=== PATIENT | female | born 1960 | race Caucasian/White ===

== ENCOUNTER 2020-03-12 13:46 | Outpatient (REF) | payer OTHER, SELFPAY ==
--- NOTE | ~2020-03-12 | MM_ITS ---
EXAMINATION: BONE DENSITOMETRY CLINICAL INDICATION: Osteoporosis. COMPARISON: Previous BD dated 05/07/2013 and baseline BD dated 05/29/2008. TECHNIQUE: Using a [employer] DXA System (software version: 13.1) manufactured by [employer], dual-energy x-ray absorptiometry was performed of the lumbar spine and left hip. The images are of good technical quality. Summary results are attached. FINDINGS: AP SPINE L1-L4: Current: BMD 1.201 g/cm2, Z-score 1.6, T-score 0.2, normal, 1.1% increase from previous, 6.6% decrease from baseline (<5% change is not significant). Prior: BMD 1.188 g/cm2. Baseline: BMD 1.286 g/cm2. LEFT FEMUR, NECK: Current: BMD 1.044 g/cm2, Z-score 1.4, T-score 0.0, normal. Prior: BMD 1.115 g/cm2. Baseline: BMD 1.181 g/cm2. LEFT FEMUR, TOTAL: Current: BMD 1.122 g/cm2, Z-score 2.0, T-score 0.9, normal, 1.2% increase from previous, 5.5% decrease from baseline (<5% change is not significant). Prior: BMD 1.109 g/cm2. Baseline: BMD 1.187 g/cm2. IDENTIFIED RISK FACTORS: Early menopause, secondary osteoporosis, hysterectomy. HISTORY OF FRACTURE: None listed. MEDICATIONS: None listed. MM/XR DEXA axial skeleton IMPRESSION: 1. DIAGNOSIS: Normal bone density based on the lowest T-score value of 0.0 in the femoral neck applying World Health Organization criteria. 2. 10-YEAR FRACTURE RISK PREDICTION, FRAX: Major osteoporotic fracture (clinical spine, forearm, hip or shoulder) 6.2%. Hip fracture 0.1%. 3. Treatment Recommendations: NOF guidelines recommend consideration for treatment in postmenopausal women and men age 50 and older presenting with the following: -A hip or vertebral (clinical or morphometric) fracture. -T-score less than or equal to -2.5 at the femoral neck or spine after appropriate evaluation to exclude secondary causes. -Low bone mass at the hip or spine and a 10-year fracture probability by FRAX of greater than or equal to 3% for hip fracture or greater than or equal to 20% for major osteoporotic fracture based on the [place] adapted WHO algorithm. 4. Other Recommendations: All treatment decisions require clinical judgment and consideration of individual patient factors, including patient preferences, comorbidities, previous drug use, risk factors not captured in the FRAX model (e.g. frailty, falls, vitamin D deficiency, increased bone turnover, interval significant decline in bone density) and possible under or overestimation of fracture risk by FRAX. FUTURE SCAN RECOMMENDATION: People with diagnosed cases of osteoporosis or at high risk for fracture should have regular bone mineral density tests. For patients eligible for Medicare, routine testing is allowed once every 2 years. The testing frequency can be increased to one year for patients who have rapidly progressing disease, those who are receiving or discontinuing medical therapy to restore bone mass, or have additional risk factors.
--- NOTE | ~2020-03-12 | MM_ITS ---
EXAMINATION: MM SCREENING DIGITAL BREAST TOMOSYNTHESIS, BILATERAL CLINICAL INFORMATION: Screening. Asymptomatic. The lifetime risk of breast cancer based on the Tyrer-Cuzick Model is 6.4%. COMPARISON: Mammography: November 16, 2018 and studies dating back to May 07, 2013 TECHNIQUE: Digital breast tomosynthesis is performed in both the craniocaudal and mediolateral oblique views along with computer-aided detection (CAD). Synthesized 2D images are generated from the tomosynthesis. FINDINGS: The breasts are heterogeneously dense, which may obscure small masses (ACR BI-RADS breast composition Category c). There are no significant masses, abnormal calcifications, or other abnormalities. MM/MM tomosynthesis screening BI IMPRESSION: There are no significant changes from prior study. ASSESSMENT: BI-RADS 1: Negative RECOMMENDATION: Routine annual mammography screening. This patient's information was entered into a reminder system with a target due date for their next mammogram.
== END 2020-03-12 13:47 | disposition home or self-care (01) ==
LOC: HO.MAMMO 13:46
PROVIDERS: PCP Registered Nurse; Visit Provider Obstetrics & Gynecology Obstetrics
DX: Z12.31 Encounter for screening mammogram for malignant neoplasm of breast (principal); Z13.820 Encounter for screening for osteoporosis; Z78.0 Asymptomatic menopausal state; Z90.710 Acquired absence of both cervix and uterus
CPT/HCPCS: 77063; 77067; 77080

== ENCOUNTER 2021-03-16 15:43 | Outpatient (REF) | payer OTHER, SELFPAY ==
--- NOTE | ~2021-03-16 | MM_ITS ---
EXAMINATION: MM SCREENING DIGITAL BREAST TOMOSYNTHESIS, BILATERAL CLINICAL INFORMATION: Screening. Asymptomatic. The lifetime risk of breast cancer based on the Tyrer-Cuzick Model is 6%. COMPARISON: Mammography: 03/12/2020, 11/16/2018, 11/17/2017, bilateral screening breast ultrasound 11/21/2018 TECHNIQUE: Digital breast tomosynthesis is performed in both the craniocaudal and mediolateral oblique views along with computer-aided detection (CAD). Synthesized 2D images are generated from the tomosynthesis. FINDINGS: The breasts are heterogeneously dense, which may obscure small masses (ACR BI-RADS breast composition Category c). There are no significant masses, abnormal calcifications, or other abnormalities. Parenchymal pattern is similar to prior studies. There is no developing density or architectural abnormality. The axilla and skin contours are unremarkable. No significant changes. MM/MM tomosynthesis screening BI IMPRESSION: No mammographic evidence of malignancy. ASSESSMENT: BI-RADS 1: Negative RECOMMENDATION: Routine annual mammography screening. This patient's information was entered into a reminder system with a target due date for their next mammogram.
== END 2021-03-16 15:44 | disposition home or self-care (01) ==
LOC: HO.MAMMO 15:43
PROVIDERS: Visit Provider Registered Nurse
DX: Z12.31 Encounter for screening mammogram for malignant neoplasm of breast (principal)
CPT/HCPCS: 77063; 77067

== ENCOUNTER 2022-03-20 23:45 | Emergency (ER) | payer OTHER, SELFPAY ==
--- NOTE | ~2022-03-20 | CT_ITS ---
EXAMINATION: CT ABDOMEN AND PELVIS WITHOUT CONTRAST CLINICAL INFORMATION: Hematuria. COMPARISON: None TECHNIQUE: Multidetector volumetric imaging was performed from the superior aspect of the liver through the pubic symphysis. Sagittal and coronal reformatted images were obtained on the technologist's workstation. This CT examination was performed using dose optimization techniques as appropriate, variously including the following: *Automated exposure control *Adjustment of mA and/or kV according to patient size (this includes techniques or standardized protocols for targeted exams where dose is matched to indication/reason for exam; i.e. extremities or head) *Use of iterative reconstruction technique DLP: 516 mGy-cm FINDINGS: LUNG BASES: There is a right lower lobe 0.3 cm pulmonary nodule on series 4 image 23. The visualized cardiac structures are unremarkable. LIVER, GALLBLADDER, AND BILIARY TREE: The liver is normal in size, shape, and attenuation. No focal hepatic lesion or biliary ductal dilatation is present. The gallbladder is unremarkable with no evidence of radiopaque gallstones, gallbladder wall thickening, or obvious pericholecystic inflammatory changes. PANCREAS: Unremarkable. SPLEEN: Normal size spleen. Calcified granuloma noted. ADRENAL GLANDS: Unremarkable. KIDNEYS AND URETERS: The kidneys are normal in size, shape, and attenuation. No hydronephrosis, hydroureter, or calculi seen. No perinephric stranding. BLADDER: Normally distended without wall thickening. 0.2 cm calculus layering in the left aspect of the bladder lumen. GASTROINTESTINAL TRACT: The stomach is unremarkable. Normal caliber small bowel. No obstruction. Normal appendix. No colonic wall thickening or inflammation. Moderate colonic stool burden. ABDOMINAL WALL: No significant hernia is appreciated. LYMPH NODES: Normal. VASCULAR: Unremarkable. PELVIC VISCERA: Uterus not seen. No adnexal mass. OSSEOUS STRUCTURES: No acute or suspicious osseous abnormality. Degenerative changes in the spine. Vacuum disc phenomenon at L5-S1. CT/CT abdomen pelvis wo IV con IMPRESSION: 1. 0.2 cm calculus in the bladder lumen. No hydronephrosis or nephrolithiasis. 2. 0.3 cm right lower lobe pulmonary nodule. If this is a high-risk patient, consider 12 month follow-up chest CT. Fleischner guidelines were followed.
[2022-03-20 23:59] VITALS: BP 147/68; PULSE 99; RESP 20; TEMP 36.8; O2SAT 99; BMI 26.4
[2022-03-21 00:37] LABS: Hematocrit 40.6 % (37.0-47.0); Hemoglobin 13.9 g/dl (12.0-16.0); Mean Corpuscular HGB Conc 34.2 g/dl (31.0-35.0); Mean Corpuscular Hemoglobin 31.4 pg (27.0-33.0); Mean Corpuscular Volume 91.6 fL (80.0-98.0); Mean Platelet Volume 8.9 fL (9.4-12.3); Platelet Count 263 X10*3/uL (160-400); Red Blood Count 4.43 X10*6/uL (4.20-5.50); Red Cell Distribution Width 11.9 % (11.0-16.0); White Blood Count 9.1 X10*3/uL (4.8-10.8)
[2022-03-21 00:52] LABS: Alanine Aminotransferase 42 U/L (0-31); Albumin Level 4.5 g/dL (3.5-5.0); Alkaline Phosphatase 107 U/L (39-117); Anion Gap 13 (12-20); Aspartate Amino Transferase 29 U/L (5-31); Bilirubin Direct < 0.2 mg/dL (0.0-0.5); Bilirubin Total 0.3 mg/dL (0.0-1.0); Blood Urea Nitrogen 13 mg/dL (9-16); Calcium 9.9 mg/dL (8.4-10.2); Carbon Dioxide 24 mmol/L (22-29); Chloride 105 mmol/L (96-108); Creatinine Clr Calc Pharmacy 61.9; Estimated Glomerular Filt Rate > 60; Glucose Random 117 mg/dL (60-115); Lipase 23 U/L (8-78); Potassium 3.8 mmol/L (3.3-5.1); Sodium 138 mmol/L (135-145); Total Protein 7.1 g/dL (6.5-8.0)
--- NOTE | 2022-03-21 01:05 | ED.GENADULT ---
HPI - General Adult General Chief complaint: General Medical Stated complaint: Blood in urine Time Seen by Provider: 03/21/22 00:37 Source: patient Mode of arrival: ambulatory Limitations: no limitations History of Present Illness HPI narrative: 62-year-old female came into the ED for evaluation of bloody urine x1 day. Patient was diagnosed with interstitial cystitis many years ago presented with blood in the urine with lower abdominal/suprapubic pain and cramps, declined any flank pain, no dysuria, no frequency of urination. Patient had hysterectomies only surgical history patient had. Otherwise no nausea, no vomiting, no diarrhea, no fever, no chills. Patient had a cystoscopy done in 1998 and was diagnosed with IC. Related Data Previous Rx's Medication Instructions Recorded nitrofurantoin 100 mg PO Q12H 7 days #14 caps 03/21/22 monohydrate/macrocrystals 100 mg capsule (Macrobid) Allergies Allergy/AdvReac Type Severity Reaction Status Date / Time iodine Allergy Severe cardiac Verified 01/04/22 11:46 arrest Review of Systems Review of Systems: All other systems are reviewed and are negative Constitutional: Reports as per HPI and Reports no additional constitutional complaints Eyes: Reports as per HPI and Reports no additional eye complaints Reports system reviewed and no additional complaints, except as documented Cardiovascular: Reports as per HPI and Reports no additional cardiovascular complaints Respiratory: Reports as per HPI and Reports no additional respiratory complaints Gastrointestinal: Reports as per HPI and Reports no additional gastrointestinal complaints Genitourinary: Reports no additional female genitourinary complaints Musculoskeletal: Reports no additional musculoskeletal complaints Skin/Breast: Reports system reviewed and no additional complaints, except as docu Psychiatric: Reports no additional psychiatric complaints Endocrine: Reports no additional endocrine complaints Hematologic/Lymphatic: Reports no additional hematologic/lymphatic complaints Allergic/Immunologic: Reports no additional allergic/immunologic complaints Reports system reviewed and no additional complaints, except as documented and Reports Abnormal speech present [facility] Past Medical History Surgical History History of bunionectomy History of carpal tunnel release History of nasal surgery S/P AURA (total abdominal hysterectomy) Status post trigger finger release Social History Social History Advance Directives: No Physical Exam ED Vital Signs: Vital Signs - 24 hr 03/20/22 23:59 Temperature 98.2 F Pulse Rate 99 Respiratory Rate 20 Blood Pressure 147/68 H Pulse Oximetry 99 Oxygen Delivery Method Room Air BMI result Body Mass Index 26.4 Vital signs have been reviewed as appeared to be correct. Blood pressure normal. Heart rate normal. Respiration rate normal. Temperature normal. Oxygen saturation normal. Appearance: Alert. Oriented X3. No acute distress. Head: Normal external exam. Normocephalic. Atraumatic. No Monzon signs noted. No raccoon eyes noted Eyes: PERRLA. EOMI. Conjunctiva and sclera normal. Eyelids normal. ENT: TM's Normal. Pharynx normal. Uvula midline. Moist mucous membranes. No trismus noted. No drooling noted. No muffled voice noted. Neck: Normal inspection. Neck supple. FROM. No adenopathy. Thyroid Normal. No meningeal signs. No neck mass noted. CVS: Normal heart rate and rhythm. Heart sound normal. No murmurs noted. Pulses normal throughout. Respiratory: No respiratory distress. Painless inspiration. Breath sounds normal. No wheezes/rales/rhonchi noted. Chest nontender. No accessory muscle usage noted or decreased air movement noted. Abdomen: Soft and nontender. Bowel sounds normal in all 4 quadrants. No distention noted. No organomegaly noted. No visible injury noted. Back: No CVA tenderness. Full range of motion noted. Skin: Skin warm and dry. Normal skin color. Normal skin turgor. No rashes/lesions/lacerations noted. Extremities: No lower extremity edema. Extremities exhibit normal range of motion. Extremities nontender. Neuro: Oriented X 3. Cranial nerve exam: II-XII are grossly intact No motor deficit. No sensory deficit. Reflexes normal. Course Course Course Narrative: 62-year-old female with history of IC presented with hematuria and abdominal pain, CT of the abdomen pelvis is showing 0.2 cm stone in the urinary bladder but no hydroureter or hydronephrosis. UA with wbc's will treat for UTI with Macrobid patient was encouraged to drink plenty of fluids and follow up with Dr. Diaz. Medications Administered Discontinued Medications Generic Name Dose Route Start Last Admin Trade Name Freq PRN Reason Stop Dose Admin Amitriptyline HCl 10 mg 03/21/22 00:57 03/21/22 01:32 Amitriptyline Hcl 10 Mg Tablet PO 03/21/22 00:58 10 mg ONCE ONE Administration Phenazopyridine HCl 100 mg 03/21/22 00:57 03/21/22 01:32 Phenazopyridine Hcl 100 Mg Tablet PO 03/21/22 00:58 100 mg ONCE ONE Administration Medical Decision Making Differential Diagnosis Differential Diagnoses: The differential diagnosis associated with the presentation includes (Hematuria, kidney stone, hemorrhagic IC, malignancy.) Lab Data MDM Lab Attestation statement: I reviewed the patient's lab results. 03/21/22 00:31 03/21/22 00:31 Labs: Lab Results 03/21/22 03/21/22 03/21/22 Range/Units 00:31 00:31 01:11 WBC 9.1 (4.8-10.8) X10*3/uL RBC 4.43 (4.20-5.50) X10*6/uL Hgb 13.9 (12.0-16.0) g/dl Hct 40.6 (37.0-47.0) % MCV 91.6 (80.0-98.0) fL MCH 31.4 (27.0-33.0) pg MCHC 34.2 (31.0-35.0) g/dl RDW 11.9 (11.0-16.0) % Plt Count 263 (160-400) X10*3/uL MPV 8.9 L (9.4-12.3) fL Absolute Nucleated RBC 0.000 (0.0-0.012) X10*3/uL Nucleated RBC % (auto) 0.0 (0.0-0.2) /100WBC Sodium 138 (135-145) mmol/L Potassium 3.8 (3.3-5.1) mmol/L Chloride 105 (96-108) mmol/L Carbon Dioxide 24 (22-29) mmol/L Anion Gap 13 (12-20) BUN 13 (9-16) mg/dL Creatinine 0.77 (0.5-1.4) mg/dL Estim Creat Clear Calc 61.9 Estimated GFR > 60 Random Glucose 117 H (60-115) mg/dL Calcium 9.9 (8.4-10.2) mg/dL Total Bilirubin 0.3 (0.0-1.0) mg/dL Direct Bilirubin < 0.2 (0.0-0.5) mg/dL AST 29 (5-31) U/L ALT 42 H (0-31) U/L Alkaline Phosphatase 107 (39-117) U/L Total Protein 7.1 (6.5-8.0) g/dL Albumin 4.5 (3.5-5.0) g/dL Lipase 23 (8-78) U/L Urine Color Straw Urine Appearance Turbid Urine pH 5.5 (5.0-9.0) Ur Specific [place] 1.020 (1.005-1.025) Urine Protein 100 (2+) H (Neg-Trace) mg/dL Urine Glucose (UA) Negative (Negative) mg/dL Urine Ketones Negative (Negative) mg/dL Urine Blood Large (3+) H (Negative) Urine Nitrite Negative (Negative) Ur Leukocyte Esterase Large (3+) H (Negative) Urine RBC >20 H (0-2) /HPF Urine WBC >50 H (0-5) /HPF Urine WBC Clumps Ur Squamous Epith Cells 0-2 (0-2) /HPF Ur Transition Epith Cell Ur Renal Epithelial Cell Calcium Oxalate Crystal Present Leucine Crystals Cystine Crystals Tyrosine Crystals Other Crystals Urine Bacteria Trace (None Seen) Urine Parasites Bilirubin Casts Epithelial Casts Fatty Casts Hyaline Casts 0-2 (0-2) /LPF Granular Casts Waxy Casts Broad Casts RBC Casts WBC Casts Other Casts Urine Trichomonas Urine Yeast 03/21/22 Range/Units 01:11 WBC (4.8-10.8) X10*3/uL RBC (4.20-5.50) X10*6/uL Hgb (12.0-16.0) g/dl Hct (37.0-47.0) % MCV (80.0-98.0) fL MCH (27.0-33.0) pg MCHC (31.0-35.0) g/dl RDW (11.0-16.0) % Plt Count (160-400) X10*3/uL MPV (9.4-12.3) fL Absolute Nucleated RBC (0.0-0.012) X10*3/uL Nucleated RBC % (auto) (0.0-0.2) /100WBC Sodium (135-145) mmol/L Potassium (3.3-5.1) mmol/L Chloride (96-108) mmol/L Carbon Dioxide (22-29) mmol/L Anion Gap (12-20) BUN (9-16) mg/dL Creatinine (0.5-1.4) mg/dL Estim Creat Clear Calc Estimated GFR Random Glucose (60-115) mg/dL Calcium (8.4-10.2) mg/dL Total Bilirubin (0.0-1.0) mg/dL Direct Bilirubin (0.0-0.5) mg/dL AST (5-31) U/L ALT (0-31) U/L Alkaline Phosphatase (39-117) U/L Total Protein (6.5-8.0) g/dL Albumin (3.5-5.0) g/dL Lipase (8-78) U/L Urine Color Cancelled Urine Appearance Cancelled Urine pH Cancelled (5.0-9.0) Ur Specific [place] Cancelled (1.005-1.025) Urine Protein Cancelled (Neg-Trace) mg/dL Urine Glucose (UA) Cancelled (Negative) mg/dL Urine Ketones Cancelled (Negative) mg/dL Urine Blood Cancelled (Negative) Urine Nitrite Cancelled (Negative) Ur Leukocyte Esterase Cancelled (Negative) Urine RBC Cancelled (0-2) /HPF Urine WBC Cancelled (0-5) /HPF Urine WBC Clumps Cancelled Ur Squamous Epith Cells Cancelled (0-2) /HPF Ur Transition Epith Cell Cancelled Ur Renal Epithelial Cell Cancelled Calcium Oxalate Crystal Cancelled Leucine Crystals Cancelled Cystine Crystals Cancelled Tyrosine Crystals Cancelled Other Crystals Cancelled Urine Bacteria Cancelled (None Seen) Urine Parasites Cancelled Bilirubin Casts Cancelled Epithelial Casts Cancelled Fatty Casts Cancelled Hyaline Casts Cancelled (0-2) /LPF Granular Casts Cancelled Waxy Casts Cancelled Broad Casts Cancelled RBC Casts Cancelled WBC Casts Cancelled Other Casts Cancelled Urine Trichomonas Cancelled Urine Yeast Cancelled Independent Interpretation I performed an independent interpretation of an: CT Scan (Abdomen:1. 0.2 cm calculus in the bladder lumen. No hydronephrosis or nephrolithiasis. 2. 0.3 cm right lower lobe pulmonary nodule. If this is a high-risk patient, consider 12 month follow-up chest CT. ) Radiology Impression Discussion of test interpretation with radiology: I have reviewed the radiologist's reading. Discharge Plan Discharge Clinical Impression: Hematuria, Lung nodule Patient Disposition: Home, Self-Care Instructions: Hematuria (ED) Additional Instructions: Drink plenty of fluids. Follow-up with your PCP for your lung nodule for repeat chest CT in 12 months. Prescriptions: New nitrofurantoin monohyd/m-cryst [Macrobid] 100 mg capsule 100 mg PO Q12H 7 Days Qty: 14 0RF Rx Instructions: must administer with a meal/food Referrals: Triny Luke MD [Primary Care Provider] - Agustin Diaz MD [Physician] -
[2022-03-21] MEDS: Amitriptyline HCl 10 MG TABLET PO (01:32)
[2022-03-21] MEDS: Phenazopyridine HCL 100 MG TABLET PO (01:32)
[2022-03-21 01:36] LABS: Appearance Urine Turbid; Bacteria Urine Trace (None Seen); Calcium Oxalate Crystals Urine Present; Glucose Urine UA Negative (Negative); Hyaline Casts Urine 0-2 /LPF (0-2); Leukocyte Esterase Urine Large (3+) (Negative); Nitrite Urine Negative (Negative); PH 5.5 (5.0-9.0); RBC Urine >20 /HPF (0-2); Squamous Epithelial Cell Urine 0-2 /HPF (0-2); UACC Culture Trigger YES; UMIC TRIGGER UACC YES; Urine Blood Large (3+) (Negative); Urine Ketones Negative (Negative); Urine Protein 100 (2+) mg/dL (Neg-Trace); WBC Urine >50 /HPF (0-5)
[2022-03-21 01:37] LABS: Color Urine Straw
[2022-03-21 02:57] VITALS: BP 143/62; PULSE 88; RESP 12; TEMP 36.6; O2SAT 98
== END 2022-03-21 03:03 | disposition home or self-care (01) ==
PROVIDERS: Emergency Provider Emergency Medicine; PCP Internal Medicine
DX: R31.9 Hematuria, unspecified (principal); N21.0 Calculus in bladder; R91.1 Solitary pulmonary nodule
CPT/HCPCS: 36415; 74176; 80053; 81001; 82248; 83690; 85027; 87086; 99284

== ENCOUNTER 2022-03-29 15:56 | Outpatient (REF) | payer OTHER, SELFPAY ==
--- NOTE | ~2022-03-29 | MM_ITS ---
EXAMINATION: MM SCREENING DIGITAL BREAST TOMOSYNTHESIS, BILATERAL CLINICAL INFORMATION: Screening. Asymptomatic. The lifetime risk of breast cancer based on the Tyrer-Cuzick Model is 7.0%. COMPARISON: Mammography: March 16, 2021 and studies dating back to August 20, 2015 TECHNIQUE: Digital breast tomosynthesis is performed in both the craniocaudal and mediolateral oblique views along with computer-aided detection (CAD). Synthesized 2D images are generated from the tomosynthesis. FINDINGS: The breasts are heterogeneously dense, which may obscure small masses (ACR BI-RADS breast composition Category c). There are no significant masses, abnormal calcifications, or other abnormalities. MM/MM tomosynthesis screening BI IMPRESSION: No significant changes from prior exam. ASSESSMENT: BI-RADS 1: Negative RECOMMENDATION: Routine annual mammography screening. This patient's information was entered into a reminder system with a target due date for their next mammogram.
== END 2022-03-29 15:57 | disposition home or self-care (01) ==
LOC: HO.MAMMO 15:56
PROVIDERS: PCP Internal Medicine; Visit Provider Obstetrics & Gynecology
DX: Z12.31 Encounter for screening mammogram for malignant neoplasm of breast (principal)
CPT/HCPCS: 77063; 77067

== ENCOUNTER → 2022-04-04 14:30 | Outpatient (BNVA) | payer OTHER, SELFPAY | PROVIDERS: PCP Hospitalist; Visit Provider Urology | DX: R31.0 Gross hematuria (principal); N30.11 Interstitial cystitis (chronic) with hematuria; R39.89 Other symptoms and signs involving the genitourinary system | CPT/HCPCS: 51798; 99202 ==

== ENCOUNTER 2022-04-12 09:11 | Day surgery (SDC) | payer OTHER, SELFPAY ==
--- NOTE | 2022-04-11 11:03 | HO.ANESPROP2 ---
Documented by User: Camila Ramos NP 04/11/22 11:04 HPI - Anesthesia Eval Consult details Narrative: 62yo F for Cystoscopy Hydrodistention of Bladder PMFSH Active Problems Active Problems: All Active Problems (Updated 04/04/22 @ 15:19 by Shahid Mattson MD) Sensation of pressure in bladder area (Acute) Interstitial cystitis (chronic) with hematuria (Acute) Gross hematuria (Acute) Surgical History Surgical History History of bunionectomy History of carpal tunnel release History of nasal surgery S/P AURA (total abdominal hysterectomy) Status post trigger finger release Social History Social History Advance Directives: No Advance Directives Information Provided: Yes Meds Allergies Allergy/AdvReac Type Severity Reaction Status Date / Time iodine Allergy Severe cardiac Verified 04/04/22 14:35 arrest Home Medications Medication Instructions Recorded Confirmed Last Taken Type alprazolam 0.5 mg tablet 0.25 - 0.5 mg PO DAILY PRN anxiety 04/04/22 Unknown History venlafaxine 150 mg 150 mg PO DAILY 04/04/22 Unknown History capsule,extended release 24 hr Exam Exam Date and Time: April 11, 2022 1103 Pertinent Lab Results Pertinent Lab Results: Laboratory Tests 03/21/22 03/21/22 00:31 00:31 WBC 9.1 Hgb 13.9 Hct 40.6 Plt Count 263 Sodium 138 Potassium 3.8 Chloride 105 Carbon Dioxide 24 BUN 13 Creatinine 0.77 Assessment and Plan Assessment Anesthesia Assessment: Chart Reviewed Documented by User: Katerine Bermeo MD 04/12/22 09:17 PMFSH Family History Family history of problems with anesthesia: No Surgical History Surgical History History of bunionectomy History of carpal tunnel release History of nasal surgery S/P AURA (total abdominal hysterectomy) Status post trigger finger release History of Problems with Anesthesia: No Social History Social History Advance Directives: No Advance Directives Information Provided: Yes Meds Allergies Allergy/AdvReac Type Severity Reaction Status Date / Time iodine Allergy Severe cardiac Verified 04/04/22 14:35 arrest Home Medications Medication Instructions Recorded Confirmed Last Taken Type alprazolam 0.5 mg tablet 0.25 - 0.5 mg PO DAILY PRN anxiety 04/04/22 Unknown History venlafaxine 150 mg 150 mg PO DAILY 04/04/22 Unknown History capsule,extended release 24 hr Exam Airway Mallampati Class: II TM Dist: >3cm Neck ROM: Full Heart: rrr Lungs: cta Assessment and Plan Assessment Anesthesia Assessment: Anesthesia Plan Discussed Final Anesthetic Review Family History of Problems with Anesthesia: No History of Problems with Anesthesia: No NPO: Yes ASA Class: II Final Preanesthetic Review: No Changes in Pt Med Stat and Consent Obtained/Reviewed Patient Risk: Low Procedure Risk: Low Anesthetic Plan Anesthetic Plan: GA Disposition: Standard PACU
[2022-04-12 09:26] VITALS: BMI 26.4
--- NOTE | 2022-04-12 09:26 | MHC.SHP ---
Pre-Procedural Eval Section A Date of Service: 04/12/22 The patient is an INPATIENT: No The History & Physical has been completed within 30 days and I have reviewed it.: Yes Section B Chief Complaint: Interstitial cystitis (chronic) with hematuria Allergies: Allergies Allergy/AdvReac Type Severity Reaction Status Date / Time iodine Allergy Severe cardiac Verified 04/04/22 14:35 arrest Plan Diagnosis/Plan: Unchanged I have reviewed the history and physical and performed a pertinent physical examination on my patient. No changes have occurred unless specified. Cystoscopy Hydrodistension. Discussed risks to include but not limited to, blood in the urine, burning with urination, urgency. Time Spent With Patient Time: Total time managing care of this patient today ____ minutes.
[2022-04-12 09:28] VITALS: BP 134/76; PULSE 83; RESP 18; TEMP 36.5; O2SAT 98
[2022-04-12] MEDS: Lactated Ringers 1,000 ML 100 ML IVCONT (09:39)
[2022-04-12 10:35] VITALS: BP 130/62; PULSE 76; RESP 17; TEMP 36.5; O2SAT 96
--- NOTE | 2022-04-12 10:38 | P.OP_ITS ---
Operative Note Operative Note Date of Service: 04/12/22 Narrative: PREOP DIAGNOSIS: Interstitial cystitis, pelvic pain POSTOP DIAGNOSIS: Interstitial cystitis, pelvic pain PROCEDURE: CYSTOSCOPY HYDRODISTENTION, Bladder instillation Anethesia: General Surgeon: Dr. Shahid Mattson Indications: Details of procedure: The patient was brought into the operating room placed on the OR table in supine position. 2 g of Ancef IV. General anesthesia was administered. The patient was repositioned into lithotomy position, prepped and draped in the usual sterile fashion. Time-out was done per protocol. A 22 fr cystoscope was placed transurethrally into the bladder. Urine was drained from the bladder measuring 75 mL.The right and left ureteral orifices were visualized. The entire bladder was visualized. There were no suspicious bladd er lesions seen. There were mild trabeculations noted. The bladder was filled with sterile water at 80 cm of water pressure under gravity. The bladder was distended for 2 minutes. Bladder capacity measured 650 mL. Revisualization of the bladder, noted no glomerulations visualized. No Tomas ulcerations. The bladder was refilled with sterile water again at 80 cm of water pressure under gravity. The bladder was distended for 3 minutes. The fluid was drained from the bladder and measured 900 mL. The cystoscope was removed. 2% lidocaine urojet was passed transurethrally, Solution of (1% lidocaine plain, 15 mL, 0.5 % Marcaine 15 mL mixed with 30, 000 units of heparin concentration 5000 units per mL total of 6 mL hepaine) instilled transurethrally into the bladder. The patient was brought out of anesthesia and taken to recovery in stable condition. Complications: None Drains: none
[2022-04-12 10:40] VITALS: BP 139/70; PULSE 77; RESP 18; O2SAT 97
[2022-04-12 10:45] VITALS: BP 128/66; PULSE 74; RESP 16; O2SAT 97
[2022-04-12 10:50] VITALS: BP 120/64; PULSE 77; RESP 18; O2SAT 98
[2022-04-12 11:05] VITALS: BP 137/75; PULSE 76; RESP 15; TEMP 36.3; O2SAT 97
[2022-04-12] MEDS: Acetaminophen 325 MG TABLET 650 MG PO (11:32)
== END 2022-04-12 11:41 ==
LOC: HO.SSS 09:12
PROVIDERS: PCP Internal Medicine; Visit Provider Urology
PROC: 0T7B7ZZ Dilation of Bladder, Via Natural or Artificial Opening (ICD-10-PCS; CPT 52260; principal; 2022-04-12 10:40)
DX: N30.11 Interstitial cystitis (chronic) with hematuria (principal); R10.2 Pelvic and perineal pain
CPT/HCPCS: 52260; J0690; J1100; J1643; J1885; J2370; J2405; J2795; J3010

== ENCOUNTER → 2022-04-18 13:33 | Outpatient (BNVA) | payer OTHER, SELFPAY | PROVIDERS: PCP Internal Medicine; Visit Provider Urology | DX: N30.11 Interstitial cystitis (chronic) with hematuria (principal) | CPT/HCPCS: 51700; 51701; J1643; J2920 ==

== ENCOUNTER → 2022-04-25 13:33 | Outpatient (BNVA) | payer OTHER, SELFPAY | PROVIDERS: PCP Hospitalist; Visit Provider Urology | DX: N30.11 Interstitial cystitis (chronic) with hematuria (principal) | CPT/HCPCS: 51700; 51701 ==

== ENCOUNTER → 2022-05-02 13:40 | Outpatient (BNVA) | payer OTHER, SELFPAY | PROVIDERS: PCP Hospitalist; Visit Provider Urology | DX: N30.11 Interstitial cystitis (chronic) with hematuria (principal) | CPT/HCPCS: 51700; 51701; J1643; J2920 ==

== ENCOUNTER 2022-05-04 08:47 | Outpatient (REF) | payer OTHER, SELFPAY | END 2022-05-04 08:48 | disposition home or self-care (01) | LOC: HO.LAB 08:47 | PROVIDERS: PCP Hospitalist; Visit Provider Urology | DX: R31.0 Gross hematuria (principal); N30.11 Interstitial cystitis (chronic) with hematuria; R39.89 Other symptoms and signs involving the genitourinary system | CPT/HCPCS: 51798; 87086; 87088; 87186; 99212 ==

== ENCOUNTER → 2022-05-10 15:55 | Outpatient (BNVA) | payer OTHER, SELFPAY | PROVIDERS: PCP Hospitalist; Visit Provider Urology | DX: N30.11 Interstitial cystitis (chronic) with hematuria (principal) | CPT/HCPCS: 51700; 51701; J1643; J2920 ==

== ENCOUNTER → 2022-05-16 13:31 | Outpatient (BNVA) | payer OTHER, SELFPAY | PROVIDERS: PCP Hospitalist; Visit Provider Urology | DX: N30.11 Interstitial cystitis (chronic) with hematuria (principal) | CPT/HCPCS: 51700; 51701; J1643; J2920 ==

== ENCOUNTER → 2022-05-24 13:35 | Outpatient (BNVA) | payer OTHER, SELFPAY | PROVIDERS: PCP Hospitalist; Visit Provider Urology | DX: N30.11 Interstitial cystitis (chronic) with hematuria (principal) | CPT/HCPCS: 51700; 51701; J1643; J2920 ==

== ENCOUNTER 2022-05-25 11:12 | Outpatient (REF) | payer OTHER, SELFPAY ==
[2022-05-25 14:10] LABS: Hematocrit 43.3 % (37.0-47.0); Hemoglobin 14.2 g/dl (12.0-16.0); Mean Corpuscular HGB Conc 32.8 g/dl (31.0-35.0); Mean Corpuscular Hemoglobin 30.9 pg (27.0-33.0); Mean Corpuscular Volume 94.1 fL (80.0-98.0); Mean Platelet Volume 9.2 fL (9.4-12.3); Platelet Count 249 X10*3/uL (160-400); Red Cell Distribution Width 11.9 % (11.0-16.0); White Blood Count 4.6 X10*3/uL (4.8-10.8)
[2022-05-25 15:17] LABS: Alanine Aminotransferase 33 U/L (0-31); Albumin Level 4.5 g/dL (3.5-5.0); Alkaline Phosphatase 105 U/L (39-117); Anion Gap 14 (12-20); Aspartate Amino Transferase 26 U/L (5-31); Bilirubin Total 0.6 mg/dL (0.0-1.0); Blood Urea Nitrogen 15 mg/dL (9-16); Calcium 9.6 mg/dL (8.4-10.2); Carbon Dioxide 28 mmol/L (22-29); Chloride 106 mmol/L (96-108); Cholesterol 289 mg/dL; Estimated Glomerular Filt Rate > 60; Glucose Fasting 88 mg/dL (60-99); HDL Cholesterol 65 mg/dL; LDL Cholesterol Calculated 201 mg/dl; Potassium 4.8 mmol/L (3.3-5.1); Sodium 143 mmol/L (135-145); Total Protein 7.1 g/dL (6.5-8.0); Triglycerides 118 mg/dL
[2022-05-25 15:41] LABS: TSH reflex Free T4 1.22 uIU/mL (0.32-4.0)
== END 2022-05-25 11:13 | disposition home or self-care (01) ==
LOC: HO.HMGCLDS 11:12
PROVIDERS: PCP Hospitalist; Visit Provider Hospitalist
DX: Z00.00 Encounter for general adult medical examination without abnormal findings (principal); N30.11 Interstitial cystitis (chronic) with hematuria; R31.0 Gross hematuria; Z68.28 Body mass index [BMI] 28.0-28.9, adult
CPT/HCPCS: 36415; 80053; 80061; 84443; 85027

== ENCOUNTER → 2022-05-30 13:49 | Outpatient (BNVA) | payer OTHER, SELFPAY | PROVIDERS: PCP Hospitalist; Visit Provider Urology | DX: N30.11 Interstitial cystitis (chronic) with hematuria (principal) | CPT/HCPCS: 51700; 51701; J1643; J2920 ==

== ENCOUNTER → 2022-06-06 13:38 | Outpatient (BNVA) | payer OTHER, SELFPAY | PROVIDERS: PCP Hospitalist; Visit Provider Urology | DX: N30.11 Interstitial cystitis (chronic) with hematuria (principal) | CPT/HCPCS: 51700; 51701; J1643; J2920 ==

== ENCOUNTER → 2022-06-13 13:22 | Outpatient (BNVA) | payer OTHER, SELFPAY | PROVIDERS: PCP Hospitalist; Visit Provider Urology | DX: N30.11 Interstitial cystitis (chronic) with hematuria (principal) | CPT/HCPCS: 51700; 51701 ==

== ENCOUNTER → 2022-06-22 13:52 | Outpatient (BNVA) | payer OTHER, SELFPAY | PROVIDERS: PCP Hospitalist; Visit Provider Urology | DX: N30.11 Interstitial cystitis (chronic) with hematuria (principal) | CPT/HCPCS: 51700; 51701; J1643; J2920 ==

== ENCOUNTER → 2022-07-01 13:28 | Outpatient (BNVA) | payer OTHER, SELFPAY | PROVIDERS: PCP Hospitalist; Visit Provider Urology | DX: N30.11 Interstitial cystitis (chronic) with hematuria (principal) | CPT/HCPCS: 51700; 51701; J1643; J2920 ==

== ENCOUNTER → 2022-07-05 13:44 | Outpatient (BNVA) | payer OTHER, SELFPAY | PROVIDERS: PCP Hospitalist; Visit Provider Urology | DX: N30.11 Interstitial cystitis (chronic) with hematuria (principal) | CPT/HCPCS: 51700; 51701; J1643; J2920 ==

== ENCOUNTER → 2022-08-04 14:09 | Outpatient (BNVA) | payer OTHER, SELFPAY | PROVIDERS: Visit Provider Urology | DX: N30.11 Interstitial cystitis (chronic) with hematuria (principal); R39.89 Other symptoms and signs involving the genitourinary system; Z79.899 Other long term (current) drug therapy | CPT/HCPCS: 99212 ==

== ENCOUNTER 2022-08-18 14:57 | Outpatient (AMB) | payer OTHER, SELFPAY ==
--- NOTE | 2022-08-18 15:00 | MHC.PC.OV ---
Vital Signs 08/18/22 15:01 Height 5 ft Weight 149 lb 5 oz BMI 29.2 BP 114/68 Blood Pressure Location Rt brachial Position Sitting Respiration 12 Pulse 67 Pulse Source Pulse Oximeter Temp 98.3 F Temp Source Temporal Artery Scan Pulse Oximetry (%) 98 Oxygen Delivery Method Room Air Intake Visit Reasons: lung nodule and weight Intake Note: Patient states that her weight gain and been occurring due to some of her meds. Patient like a referral to a electric accounting machine operator or parimutuel cashier.Patient states that she is suppose to get another ultrasound on the nodule per Lily's advisement so she would like an order put in. Board Design Engineer Required: No Accompanied by: Self / Same As Patient Allergies iodine Allergy (Severe, Verified 08/18/22 15:33) cardiac arrest Medication List - Last Reconciled 08/18/22 by Harrison Vinson CNP alprazolam 0.25 - 0.5 mg PO DAILY PRN atorvastatin 40 mg PO BEDTIME hydroxyzine pamoate (Vistaril) 25 mg PO BEDTIME valacyclovir 500 mg PO DAILY venlafaxine ER 150 mg PO DAILY Tobacco use date assessed: 05/19/22 Dental Screening Dental Screen Date: 08/18/22 Did you have a dental visit in the last 12 months?: Yes Did you have a dental problem in the last 6 months where you did not have access to dental care?: No Was dental information given to patient?: Patient has dentist HPI HPI Comments History of Present Illness Details 62-year-old female presents for lung nodule and weight management follow-up She was evaluated [facility] [place] [facility] on 03/21/[address] revealed 0.3 cm right lower lobe pulmonary nodule. If this is a high-risk patient, consider 12 month follow-up chest CT. No known family history of any cancer. She denies history of smoking. She denies respiratory symptoms or h/o respiratory disease. She reports steady weight gain which he attributes to the psychotropic medications she is currently taking. She requests a referral to electric accounting machine operator/dietitian She has h/o anxiety and depression and followed by psychiatry monthly. Her psychiatrist provides therapy and manages her medications [facility] Medical History Bladder disease H/O nonmelanoma skin cancer Sinusitis Surgical History H/O: hysterectomy History of bladder surgery History of bunionectomy History of carpal tunnel release History of nasal surgery S/P AURA (total abdominal hysterectomy) Status post trigger finger release Family History Mother Pacemaker Social History Housing: House Patient Tobacco Use Status: Never used Tobacco e-Cigarette/Vaping Use: Never Used service: No Current occupational status: employed Current occupation: Self employed Cognitive needs: No Hearing needs: No Vision needs: No Questionnaire Thrive Questionnaire Date Thrive assessed: 05/19/22 RAO-7 AMB Questionnaire RAO-7 Date RAO - 7 assessed: 05/19/22 Source: Developed by Drs. Salo Stratton, Marisa Lopez, Dami Jerry and colleagues, with an educational nickie from [employer]. Review of Systems Const Details: Const Denies chills, Denies fatigue, Denies fever(s), Denies headache(s) and Denies weakness ENT Denies dizziness and Denies headache(s) Card Denies chest pain, Denies lightheadedness, Denies dyspnea and Denies other (Palpitations) Resp Denies cough, Denies dyspnea, Denies wheezing and Denies other ( shortness of breath) GI Denies abdominal pain, Denies melena, Denies hematochezia, Denies change in bowel habits, Denies dyspepsia and Denies nausea Denies hematuria and Denies dysuria Musc Denies abnormal gait, Denies myalgias, Denies arthralgias, Denies numbness and Denies tingling Skin/Breast Denies rash, Denies unusual bruising and Denies wounds Neuro Denies abnormal gait, Denies dizziness, Denies headache(s), Denies memory loss, Denies numbness, Denies Sensory deficit (Neuro), Denies tingling and Denies weakness Psych Denies anxiety and Denies depression Endo Denies fatigue Aller/Immun Denies wheezing Physical exam (Primary Care) Vital Signs: Last Vital Signs Temp 98.3 F 08/18/22 15:01 Pulse 67 08/18/22 15:01 Resp 12 08/18/22 15:01 BP 114/68 07/13/23 15:01 Pulse Ox 98 08/18/22 15:01 Oxygen Delivery Method Room Air 08/18/22 15:01 BMI result Body Mass Index 29.2 Tobacco/Smoking Status: Tobacco use Status Tobacco use date assessed 05/19/22 08/18/22 15:21 Patient Tobacco Use Status Never used Tobacco 08/18/22 15:21 e-Cigarette/Vaping Use Never Used 08/18/22 15:21 Thrive Assessment: Date of Thrive Assessment Date Thrive assessed 05/19/22 08/18/22 15:21 Const Other: General: no acute distress and well developed Nutritional Appearance: well nourished Orientation/consciousness: patient oriented x3 HENMT Head: Yes normocephalic and Yes atraumatic Eyes General: appearance normal, both eyes and all related structures Pupils: Equal, round and reactive pupils present EOM: EOMs intact bilaterally Resp Effort & Inspection: normal respiratory effort Auscultation: clear to auscultation bilaterally Cardio Rate: regular rate Rhythm: regular rhythm Heart sounds: S1 normal heart sound present, S2 normal heart sound present, no gallops, no murmurs and no rubs GI Palpation (GI): No Abdominal aortic bruit present, Soft to palpation, nontender, No hepatosplenomegaly present and No Rebound tenderness present Auscultation: normal bowel sounds General: Yes no CVA tenderness Back/Spine/Pelvis Back: no CVA tenderness Cervical Spine: cervical ROM normal and No Cervical spine tenderness Thoracic/Lumbar Spine: thoraco-lumbar ROM normal, No pain with thoraco-lumbar ROM, No thoracic spinal tenderness and No lumbar spinal tenderness Extrem General: Yes normal to inspection, No edema and No calf tenderness Skin General: warm and dry. Normal skin color. Normal skin turgor Lesions: no lesions Rashes: no rashes Trauma: no lacerations or abrasions Wounds: no wounds Nails: normal Neuro General: patient oriented x3, gait normal and no focal neuro deficit Cranial nerves: Yes Equal, round and reactive pupils present Cognition (Neuro): normal cognition Gait exam (Neuro): Normal gait present Motor exam (neuro): 5/5 motor strength present throughout Sensory Exam: No Sensory deficit (Neuro) Psych Affect: normal affect Assessment and Plan Assessment & Plan (1) Lung nodule: Code(s): R91.1 - Solitary pulmonary nodule Plan: Presents for lung nodule follow-up She was evaluated [facility] [place] [facility] on 03/21/[address] revealed 0.3 cm right lower lobe pulmonary nodule. If this is a high-risk patient, consider 12 month follow-up chest CT. No known family history of any cancer. She denies history of smoking. She denies respiratory symptoms or h/o respiratory disease. No significant comorbidities She not a high risk patient She states that she will defer repeat CT for lung nodule Encouraged to return with symptoms or concerns Verbalized understanding and agreed with treatment plan. (2) BMI 29.0-29.9,adult: Code(s): Z68.29 - Body mass index [BMI] 29.0-29.9, adult Plan: She requests referral to nutrition/dietitian Her BMI is within normal limits Healthy dietary choices and routine exercise encouraged Referred to dietitian Follow-up with symptoms or concerns Verbalized understanding and agreed with treatment plan. (3) High cholesterol: Code(s): E78.00 - Pure hypercholesterolemia, unspecified Plan: Recent lab results revealed elevated lipid levels Continue to take atorvastatin as prescribed Limit foods high in saturated fat and avoid foods high trans fat Routine exercise encouraged Lipid panel ordered. Encouraged to get fasting blood work done. Will review results and make changes to her care plan if warranted Verbalized understanding and agreed with treatment plan. Orders: Orders Lipid Panel Today E78.00 - Pure hypercholesterolemia, unspecified Referrals Nutrition/Dietitian Referral Z68.29 - Body mass index [BMI] 29.0-29.9, adult Coding Level of Care Code Est Pt Level 3 (21222) Diagnoses Lung nodule R91.1 BMI 29.0-29.9,adult Z68.29 High cholesterol E78.00 Time Spent (min) 25
[2022-08-18 15:01] VITALS: BP 114/68; PULSE 67; RESP 12; TEMP 36.8; O2SAT 98; BMI 29.2
== END 2022-08-18 15:52 | disposition home or self-care (01) ==
PROVIDERS: Visit Provider Nurse Practitioner Family
DX: R91.1 Solitary pulmonary nodule (principal); Z68.29 Body mass index [BMI] 29.0-29.9, adult; E78.00 Pure hypercholesterolemia, unspecified
CPT/HCPCS: 99213

== ENCOUNTER 2022-11-30 10:00 | Outpatient (AMB) | payer OTHER, SELFPAY ==
--- NOTE | 2022-11-30 10:04 | A.OFFVIS_ITS ---
Intake VS Expanded 11/30/22 10:06 11/30/22 10:13 Height 5 ft 5 ft Weight 150 lb 5.684 oz 150 lb BMI 29.4 29.3 Intake Visit Reasons: Obesity Allergies iodine Allergy (Severe, Verified 08/18/22 15:33) cardiac arrest HPI Nutrition Presentation Details Pt presents for MNT for obesity , The Pt was referred by PCP, Dr. Jeanne Landa Pt wants to work on meal planning and strategies to reduce sugar intake dairy/alternatives: almond milk 2 cups/d fruits: 1-2/day likes variety fish: once/month - nuts: pistachio/seed fluid: vitamin anderson/almond milk/tea physical activity : daily life activities ETOH/Smoking: denies EII-Gpymeiv-Md.Jeor Equation Height 5 ft Weight 150 lb Resting Metabolic Rate 1166.17 Calculated Activity Level Sedentary Calories Needed to Maintain Weight 1399.40 Diagnosis Nutrition problem #1 excessive energy intake As related to (etiology) #1 diagnosis As evidenced by (sign/symptom) #1 knowledge deficit of diet Monitoring/Goals Nutrition problem monitoring weight Most Recent Diabetes Results: Cholesterol 171 mg/dL (<200) 11/30/22 HDL Cholesterol 62 mg/dL (>40) 11/30/22 Triglycerides 145 mg/dL (<150) 11/30/22 [facility] Medical History Bladder disease H/O nonmelanoma skin cancer Sinusitis Surgical History H/O: hysterectomy History of bladder surgery History of bunionectomy History of carpal tunnel release History of nasal surgery S/P AURA (total abdominal hysterectomy) Status post trigger finger release Family History Mother Pacemaker Social History Housing: House Patient Tobacco Use Status: Never used Tobacco e-Cigarette/Vaping Use: Never Used service: No Current occupational status: employed Current occupation: Self employed Cognitive needs: No Hearing needs: No Vision needs: No Assessment & Plan Assessment & Plan (1) BMI 29.0-29.9,adult: Code(s): Z68.29 - Body mass index [BMI] 29.0-29.9, adult Plan: wt: 68 kg Est kcal needs as per MSJ: 1400 (40% carb, 30% protein/fat) Est fluid needs as per 25-30 ml/d: 1700 Est prot per day as per 1 g/kg bw: 68 Recommend fiber intake : 8-10 g per day and gradually increase to 25-28 g per day for women and 35-38 g for men or as tolerated Recommend sodium intake per day : less than 2000 mg Educated patient on: ( R = reviewed V = verbalizes understanding N/R = needs review N/A = not applicable * Food sources of carbohydrate, adequate serving sizes and its role in various health conditions: R * Differences between complex carbohydrates a simple carbohydrates, role of fiber in diet: R * Differences between types of fats and role in diet (mono on saturated fat fatty acids, saturated fatty acids, trans fats): NR * Food sources of sodium in salt and healthy modifications for heart health in kidney health: NR * Vitamins and minerals: R * Healthy plate method concept: R * Physical activity: Benefits a precaution: R Patient Instructions: Reduce calories by 250 per day by reducing portion sizes of high sugar foods see 1400 althea meal plan as example keep hydrated by having water with meals/snacks practice mindful eating Coding Level of Care Code Nutr Indiv Intake (58725) Diagnoses BMI 29.0-29.9,adult Z68.29 Time Spent (min) 30
[2022-11-30 10:06] VITALS: BMI 29.4
[2022-12-01 09:14] VITALS: BMI 29.3
== END 2022-11-30 10:51 | disposition home or self-care (01) ==
PROVIDERS: PCP Hospitalist; Visit Provider Dietitian, Registered
DX: Z68.29 Body mass index [BMI] 29.0-29.9, adult (principal)

== ENCOUNTER → 2022-11-30 10:00 | Outpatient (BNVA) | payer OTHER, SELFPAY | PROVIDERS: PCP Hospitalist; Visit Provider Dietitian, Registered | DX: E66.9 Obesity, unspecified (principal); Z68.29 Body mass index [BMI] 29.0-29.9, adult | CPT/HCPCS: 97802 ==

== ENCOUNTER 2022-11-30 10:54 | Outpatient (REF) | payer OTHER, SELFPAY ==
[2022-11-30 13:46] LABS: Cholesterol 171 mg/dL (<200); HDL Cholesterol 62 mg/dL (>40); LDL Cholesterol Calculated 80 mg/dL (<100); Triglycerides 145 mg/dL (<150)
== END 2022-11-30 10:55 | disposition home or self-care (01) ==
LOC: HO.10HDL 10:54
PROVIDERS: Visit Provider Nurse Practitioner Family
DX: E78.00 Pure hypercholesterolemia, unspecified (principal)
CPT/HCPCS: 36415; 80061

== ENCOUNTER → 2022-12-22 09:45 | Outpatient (BNVA) | payer OTHER, SELFPAY | PROVIDERS: PCP Hospitalist; Visit Provider Urology | DX: N30.11 Interstitial cystitis (chronic) with hematuria (principal) | CPT/HCPCS: 51700; 51701 ==

== ENCOUNTER → 2022-12-23 09:18 | Outpatient (BNVA) | payer OTHER, SELFPAY | PROVIDERS: PCP Hospitalist; Visit Provider Urology | DX: N30.11 Interstitial cystitis (chronic) with hematuria (principal) | CPT/HCPCS: 51700; 51701 ==

== ENCOUNTER 2022-12-28 14:17 | Outpatient (AMB) | payer OTHER, SELFPAY ==
--- NOTE | 2022-12-28 14:37 | A.OFFVIS_ITS ---
Intake Intake Visit Reasons: IC Intake Note: Patient is Present for Follow Up Urology Medication: none Antibiotic Allergies:none Blood Thinners: none Allergies iodine Allergy (Severe, Verified 12/28/22 14:42) cardiac arrest Medication List - Last Reconciled 12/28/22 by Shahid Mattson MD alprazolam 0.25 - 0.5 mg PO DAILY PRN atorvastatin 40 mg PO BEDTIME cefuroxime axetil 500 mg PO BID 5 days hydroxyzine pamoate (Vistaril) 50 mg PO BEDTIME austinfgmt-kxujr-txn 118-10-40.8-36 mg (Uribel) 1 tab PO TID valacyclovir 500 mg PO DAILY venlafaxine ER 150 mg PO DAILY HPI HPI Comments History of Present Illness Details Lorie is a 62-year-old female who presents today to the office for a follow-up. 12/28/2022-- She is followed today for IC. She was last seen by me on 08/04/2022 for bladder pain. She was diagnosed with interstitial cystitis, cystoscopy hidrodistention done on 04/12/2022. She underwent bladder instillations weekly for 12 weeks with reported improvment in the bladder pressure. She is taking Vistaril 25 mg at bed time with some improvement. Patient is currently on Pyrididum and she still feels that she has a lot of bladder pressure. 12/28/2022: Evaluation today--UA--Leukoc ytes: 2 +; blood: 2 +. Review of charts: Last visit: 08/04/22-- The patient has history of interstitial cystitis and underwent cystoscopy hydrodistention on 04/12/2022. The initial bladder capacity measured 650 mL and after bladder distention the bladder capacity was 900 ml. No glomerulations or Tomas ulcerations were visualized. The patient also has history of recurrent UTIs. She completed 12 week bladder instillation with significant improvement in her bladder symptoms. OV 05/04/22--Since the patient was seen in April, she completed 90 days course of Vistaril, she did not call for a refill. She states that she has no bladder symptoms at this time and is very happy with her progress. I do want to keep her on Vistaril for another 3 months after which if she continues to do well she can discontinue the therapy. Imagin03/21/22 - CT KUB, kidneys were within n ormal limits question 2 mm stone seen in the bladder. (cystoscopy 04/12/22 no bladder stone) 12/28/2022: Plan: Ordered generic Uribel. Increased Vistaril to 50 mg at bed time. Advised the patient to repeat bladder instillations once a week for 4 weeks. Continue maintenance treatment once a month with nurse. Prescribed Ceftin 500 mg BID for 5 days. Follow-up with me in 3 months. PFSH Medical History Sinusitis Bladder disease H/O nonmelanoma skin cancer Surgical History History of bladder surgery H/O: hysterectomy History of nasal surgery S/P AURA (total abdominal hysterectomy) History of bunionectomy Status post trigger finger release History of carpal tunnel release Family History Mother Pacemaker Social History Housing: House Patient Tobacco Use Status: Never used Tobacco e-Cigarette/Vaping Use: Never Used service: No Current occupational status: employed Current occupation: Self employed Cognitive needs: No Hearing needs: No Vision needs: No Review of Systems Const All systems reviewed & are unremarkable except as noted in HPI and below Reports no additional complaints Eyes Reports no additional complaints ENT Reports no additional complaints Card Denies dyspnea Resp Denies cough and Denies dyspnea GI Reports no additional complaints Reports no additional complaints Musc Reports no additional complaints Skin/Breast Denies rash and Denies unusual bruising Neuro Reports no additional complaints Psych Reports no additional complaints Endo Reports no additional complaints Misael/Lymph Reports no additional complaints Aller/Immun Reports no additional complaints Results AMB Urinalysis, Automated UA Leukoctes 125 Kristian/uL Last Edit by NALINI Bertrand on 12/28/22 14:50 UA Nitrite Positive Last Edit by NALINI Bertrand on 12/28/22 14:50 UA Urobilinogen 4 mg/dL Last Edit by NALINI Bertrand on 12/28/22 14:50 UA Protein 0 mg/dL Last Edit by Carmella Espinosa, RMA on 12/28/22 14:50 UA pH 6.0 Last Edit by Carmella Espinosa, RMA on 12/28/22 14:50 UA Blood 80 Kp/uL Last Edit by Carmella Espinosa, RMA on 12/28/22 14:50 UA Specific [place] 1.015 Last Edit by Carmella Espinosa, RMA on 12/28/22 14: 50 UA Ketone Negative Last Edit by Carmella Espinosa, RMA on 12/28/22 14:50 UA Bilirubin 1 mg/dL Last Edit by Carmella Espinosa, RMA on 12/28/22 14:50 UA Glucose 0 mg/dL Last Edit by Carmella Espinosa, RMA on 12/28/22 14:50 Results Reviewed Results Reviewed: Laboratory Last Values Urine pH (Auto) 6.0 12/28/22 14:42 Specific [place] (Auto) 1.015 12/28/22 14:42 Urine Protein (Auto) 0 mg/dL 12/28/22 14:42 Glucose (UA)(Auto) 0 mg/dL 12/28/22 14:42 Urine Ketones (Auto) Negative 12/28/22 14:42 Urine Blood (Auto) 80 Kp/uL 12/28/22 14:42 Urine Nitrite (Auto) Positive 12/28/22 14:42 Urine Bilirubin (Auto) 1 mg/dL 12/28/22 14:42 Urine Urobilinogen (Auto) 4 mg/dL 12/28/22 14:42 Leukocyte Esterase (Auto) 125 Kristian/uL 12/28/22 14:42 Assessment & Plan Assessment & Plan (1) Interstitial cystitis (chronic) with hematuria: Code(s): N30.11 - Interstitial cystitis (chronic) with hematuria (2) Recurrent UTI: Code(s): N39.0 - Urinary tract infection, site not specified (3) Bladder pain: Code(s): R39.89 - Other symptoms and signs involving the genitourinary system Plan Ordered generic Uribel. Increased Vistaril to 50 mg at bed time. Advised the patient to repeat bladder instillations once a week for 4 weeks. Continue maintenance treatment once a month with nurse. Prescribed Ceftin 500 mg BID for 5 days. Follow-up with me in 3 months. Orders: Orders AMB Urinalysis Automated 12/28/22 Z13.9 - Encounter for screening, unspecified Urine Culture 12/28/22 N39.0 - Urinary tract infection, site not specified Medications: Chepe avilaknwg-olrob-niv 118-10-40.8-36 mg (Uribel) administer with plenty of fluids 1 tab PO TID 90 caps 1RF cefuroxime axetil 500 mg PO BID 10 tabs 0RF 5 days hydroxyzine pamoate (Vistaril) 50 mg PO BEDTIME 90 caps 1RF Patient Instructions: The patient had an opportunity to ask questions regarding treatment plan. All questions were answered. Imaging, Laboratory studies and physical exam results were discussed and reviewed in detail. No major barriers to understanding were identified. The patient expressed understanding and agreement with the above treatment plan. The patient is aware they should contact our office by phone for worsening of their current condition or the appearance of new symptoms. Compliance is encouraged with any medications and followup testing that is ordered. It is a privilege to be allowed the opportunity to participate in the urologic care of your patient. If you have any questions or concerns regarding treatment for the above conditions please do not hesitate to contact me. The office [facility] [place] contact is [phone]. This note is constructed in part using voice recognition software. While every effort has been made to ensure accuracy veterinarian poultry errors may have been included. Yours sincerely, Shahid Mattson MD Coding Level of Care Code Est Pt Level 4 (73176) Diagnoses Interstitial cystitis (chronic) with hematuria N30.11 Recurrent UTI N39.0 Bladder pain R39.89
== END 2022-12-28 15:43 | disposition home or self-care (01) ==
PROVIDERS: PCP Hospitalist; Visit Provider Urology
DX: N30.11 Interstitial cystitis (chronic) with hematuria (principal); N39.0 Urinary tract infection, site not specified; R39.89 Other symptoms and signs involving the genitourinary system
CPT/HCPCS: 99214

== ENCOUNTER 2022-12-28 14:17 | Outpatient (REF) | payer OTHER, SELFPAY | END 2022-12-28 14:18 | disposition home or self-care (01) | LOC: HO.LAB 14:17 | PROVIDERS: PCP Hospitalist; Visit Provider Urology | DX: N30.11 Interstitial cystitis (chronic) with hematuria (principal); R39.89 Other symptoms and signs involving the genitourinary system | CPT/HCPCS: 81003; 87086; 99212 ==

== ENCOUNTER → 2023-01-04 14:31 | Outpatient (BNVA) | payer OTHER, SELFPAY | PROVIDERS: PCP Hospitalist; Visit Provider Urology | DX: N30.11 Interstitial cystitis (chronic) with hematuria (principal) | CPT/HCPCS: 51700; 51701 ==

== ENCOUNTER 2023-01-06 18:38 | Emergency (ER) | payer OTHER, SELFPAY ==
--- NOTE | 2023-01-06 19:21 | ED_ITS ---
HPI - Female Genitourinary General Chief complaint: Abdominal Pain Stated complaint: Blood in urine/pain Related Data Home Medications Medication Instructions Recorded Confirmed alprazolam 0.5 mg tablet 0.25 - 0.5 mg PO DAILY PRN anxiety 04/04/22 12/28/22 venlafaxine 150 mg 150 mg PO DAILY 04/04/22 12/28/22 capsule,extended release 24 hr valacyclovir 500 mg tablet 500 mg PO DAILY 05/19/22 12/28/22 Previous Rx's Medication Instructions Recorded atorvastatin 40 mg tablet 40 mg PO BEDTIME #90 tabs 05/25/22 cefuroxime axetil 500 mg tablet 500 mg PO BID 5 days #10 tabs 12/28/22 hydroxyzine pamoate 50 mg capsule 50 mg PO BEDTIME #90 caps 12/28/22 (Vistaril) methenam 118 mg-m.blue 10 1 tab PO TID #90 caps 01/04/23 mg-s.phos 40.8 mg-p.salic 36 mg-hyos capsule (Uribel) Allergies Allergy/AdvReac Type Severity Reaction Status Date / Time iodine Allergy Severe cardiac Verified 12/28/22 14:42 arrest [facility] Past Medical History Medical History Sinusitis Bladder disease H/O nonmelanoma skin cancer Surgical History History of bladder surgery H/O: hysterectomy History of nasal surgery S/P AURA (total abdominal hysterectomy) History of bunionectomy Status post trigger finger release History of carpal tunnel release Family History Family History Mother Pacemaker Social History Social History Housing: House Patient Tobacco Use Status: Never used Tobacco e-Cigarette/Vaping Use: Never Used Advance Directives: No Advance Directives on File: No service: No Current occupational status: employed Current occupation: Self employed Cognitive needs: No Hearing needs: No Vision needs: No Physical Exam 2 Vital Signs: Vital Signs: Last Vital Signs Temp 98.0 F 01/06/23 19:23 Pulse 83 01/06/23 19:23 Resp 16 01/06/23 19:23 BP 134/64 01/06/23 19:23 Pulse Ox 96 01/06/23 19:23 O2 Del Method Room Air 01/06/23 19:23 BMI result Body Mass Index 27.3 Course Course Course Narrative: This is an RME: Additional HPI, ROS, PE not included below will be deferred to primary provider. Patient is a 62-year-old female past medical history of interstitial cystitis. She is followed by [facility], Dr. Jakob Pittman. Started on Cefuroxime 12/28 for UTI and hematuria. Has worsening bladder pain continued hematuria, contacted Urology and advised to come to the emergency department. Denies fevers, chills, nausea vomiting. Denies use of anticoagulants. Urine culture reviewed, mixed ronan, contamination Plan: labs, U/A Medical Decision Making Lab Data 01/06/23 20:06 01/06/23 20:06 Labs: Lab Results 01/06/23 Range/Units 20:06 WBC 9.0 (4.8-10.8) X10*3/uL RBC 3.98 L (4.20-5.50) X10*6/uL Hgb 12.7 (12.0-16.0) g/dl Hct 37.8 (37.0-47.0) % MCV 95.0 (80.0-98.0) fL MCH 31.9 (27.0-33.0) pg MCHC 33.6 (31.0-35.0) g/dl RDW 11.8 (11.0-16.0) % Plt Count 219 (160-400) X10*3/uL MPV 9.3 L (9.4-12.3) fL Immature Gran % (Auto) 0.2 (0.0-0.4) % Neut % (Auto) 68.8 (45-73) % Lymph % (Auto) 23.0 (20-40) % Russell % (Auto) 6.1 (2-11) % Eos % (Auto) 1.5 (0-4) % Baso % (Auto) 0.4 (0-2) % Lymph # (Auto) 2.1 (1.2-4.9) X10*3/uL Russell # (Auto) 0.6 (0.1-1.2) X10*3/uL Eos # (Auto) 0.1 (0.0-0.4) X10*3/uL Baso # (Auto) 0.0 (0.0-0.2) X10*3/uL Abs Immat Gran (auto) 0.02 (0.00-0.03) X10*3/uL Absolute Neuts (auto) 6.2 (2.0-8.3) x10*3/uL Absolute Nucleated RBC 0.000 (0.0-0.012) X10*3/uL Nucleated RBC % (auto) 0.0 (0.0-0.2) /100WBC Sodium 142 (135-145) mmol/L Potassium 4.0 (3.3-5.1) mmol/L Chloride 107 (96-108) mmol/L Carbon Dioxide 28 (22-29) mmol/L Anion Gap 11 L (12-20) BUN 17 H (9-16) mg/dL Creatinine 0.87 (0.5-1.4) mg/dL Estim Creat Clear Calc 55.8 Estimated GFR > 60 Random Glucose 147 H (60-115) mg/dL Calcium 9.3 (8.4-10.2) mg/dL Total Bilirubin 0.3 (0.0-1.0) mg/dL AST 29 (5-31) U/L ALT 38 H (0-31) U/L Alkaline Phosphatase 123 H (39-117) U/L Total Protein 6.9 (6.5-8.0) g/dL Albumin 4.2 (3.5-5.0) g/dL Urine Color Yellow Urine Appearance Clear Urine pH 5.5 (5.0-9.0) Ur Specific [place] 1.015 (1.005-1.025) Urine Protein 30 (1+) H (Neg-Trace) mg/dL Urine Glucose (UA) Negative (Negative) mg/dL Urine Ketones Negative (Negative) mg/dL Urine Blood Large (3+) H (Negative) Urine Nitrite Negative (Negative) Ur Leukocyte Esterase Moderate (2+) H (Negative) Urine RBC >20 H (0-2) /HPF Urine WBC >50 H (0-5) /HPF Ur Squamous Epith Cells 3-5 (0-2) /HPF Urine Bacteria None Seen (None Seen) Hyaline Casts 0-2 (0-2) /LPF Discharge Plan Discharge Clinical Impression: Bladder pain Patient Disposition: Elopement Prescriptions: No Action atorvastatin 40 mg tablet 40 mg PO BEDTIME Qty: 90 3RF valacyclovir 500 mg tablet 500 mg PO DAILY venlafaxine 150 mg capsule,extended release 24hr 150 mg PO DAILY alprazolam 0.5 mg tablet 0.25 - 0.5 mg PO DAILY PRN (Reason: anxiety) hydroxyzine pamoate [Vistaril] 50 mg capsule 50 mg PO BEDTIME Qty: 90 1RF cefuroxime axetil 500 mg tablet 500 mg PO BID 5 Days Qty: 10 0RF Uribel 118-10-40.8-36 mg capsule 1 tab PO TID Qty: 90 1RF Rx Instructions: administer with plenty of fluids Discharge Date/Time: 01/06/23 23:51
[2023-01-06 19:23] VITALS: BP 134/64; PULSE 83; RESP 16; TEMP 36.7; O2SAT 96; BMI 27.3
--- NOTE | 2023-01-06 20:07 | MHC.EDTECH ---
Labs and urine obtained and sent to lab,patient brought back to waiting area.
[2023-01-06 20:22] LABS: MANUAL DIFF FLAG NO
[2023-01-06 20:25] LABS: Basophils Percent Auto 0.4 % (0-2); Eosinophils Absolute Auto 0.1 X10*3/uL (0.0-0.4); Eosinophils Percent Auto 1.5 % (0-4); Hematocrit 37.8 % (37.0-47.0); Hemoglobin 12.7 g/dl (12.0-16.0); Imm Gran Abs Auto 0.02 X10*3/uL (0.00-0.03); Imm Gran Pct Auto 0.2 % (0.0-0.4); Lymphocytes Absolute Auto 2.1 X10*3/uL (1.2-4.9); Mean Corpuscular HGB Conc 33.6 g/dl (31.0-35.0); Mean Corpuscular Hemoglobin 31.9 pg (27.0-33.0); Mean Platelet Volume 9.3 fL (9.4-12.3); Monocytes Absolute Auto 0.6 X10*3/uL (0.1-1.2); Monocytes Percent Auto 6.1 % (2-11); Neutrophils Absolute Auto 6.2 x10*3/uL (2.0-8.3); Neutrophils Percent Auto 68.8 % (45-73); Platelet Count 219 X10*3/uL (160-400); Red Blood Count 3.98 X10*6/uL (4.20-5.50); Red Cell Distribution Width 11.8 % (11.0-16.0)
[2023-01-06 20:29] LABS: Appearance Urine Clear; Color Urine Yellow; Glucose Urine UA Negative (Negative); Leukocyte Esterase Urine Moderate (2+) (Negative); Nitrite Urine Negative (Negative); PH 5.5 (5.0-9.0); Specific Gravity - Urine 1.015 (1.005-1.025); UMIC TRIGGER UACC YES; Urine Blood Large (3+) (Negative); Urine Ketones Negative (Negative); Urine Protein 30 (1+) mg/dL (Neg-Trace)
[2023-01-06 20:34] LABS: Bacteria Urine None Seen (None Seen); Hyaline Casts Urine 0-2 /LPF (0-2); RBC Urine >20 /HPF (0-2); UACC Culture Trigger YES; WBC Urine >50 /HPF (0-5)
[2023-01-06 20:44] LABS: Alanine Aminotransferase 38 U/L (0-31); Albumin Level 4.2 g/dL (3.5-5.0); Alkaline Phosphatase 123 U/L (39-117); Anion Gap 11 (12-20); Aspartate Amino Transferase 29 U/L (5-31); Bilirubin Total 0.3 mg/dL (0.0-1.0); Blood Urea Nitrogen 17 mg/dL (9-16); Calcium 9.3 mg/dL (8.4-10.2); Carbon Dioxide 28 mmol/L (22-29); Chloride 107 mmol/L (96-108); Creatinine Clr Calc Pharmacy 55.8; Estimated Glomerular Filt Rate > 60; Glucose Random 147 mg/dL (60-115); Sodium 142 mmol/L (135-145); Total Protein 6.9 g/dL (6.5-8.0)
== END 2023-01-06 23:51 | disposition left against medical advice (07) ==
PROVIDERS: Nurse Practitioner Family; Emergency Provider Emergency Medicine; PCP Family Medicine
DX: R31.9 Hematuria, unspecified (principal); R30.0 Dysuria; Z79.899 Other long term (current) drug therapy
CPT/HCPCS: 36415; 80053; 81001; 85025; 87086; 99282; 99283

== ENCOUNTER → 2023-01-11 13:40 | Outpatient (BNVA) | payer OTHER, SELFPAY | PROVIDERS: PCP Hospitalist; Visit Provider Urology | DX: N30.11 Interstitial cystitis (chronic) with hematuria (principal) | CPT/HCPCS: 51700; 51701 ==

== ENCOUNTER → 2023-01-18 13:33 | Outpatient (BNVA) | payer OTHER, SELFPAY | PROVIDERS: PCP Hospitalist; Visit Provider Urology | DX: N30.11 Interstitial cystitis (chronic) with hematuria (principal) | CPT/HCPCS: 51700; 51701 ==

== ENCOUNTER → 2023-01-25 14:13 | Outpatient (BNVA) | payer OTHER, SELFPAY | PROVIDERS: PCP Hospitalist; Visit Provider Urology | DX: N30.11 Interstitial cystitis (chronic) with hematuria (principal) | CPT/HCPCS: 51700; 51701 ==

== ENCOUNTER → 2023-02-03 13:53 | Outpatient (BNVA) | payer OTHER, SELFPAY | PROVIDERS: PCP Hospitalist; Visit Provider Urology | DX: N30.11 Interstitial cystitis (chronic) with hematuria (principal) | CPT/HCPCS: 51700; 51701 ==

== ENCOUNTER 2023-02-07 10:44 | Outpatient (AMB) | payer OTHER, SELFPAY ==
--- NOTE | 2023-02-07 10:48 | A.OFFVIS_ITS ---
Intake Intake Visit Reasons: IC second opinion/ IC instill Intake Note: Patient is Present for Follow Up 2nd opinion interstitial cystitis Urology Medication: none Antibiotic Allergies:none Blood Thinners: none System Administration Manager Required: No Accompanied by: Self / Same As Patient Allergies iodine Allergy (Severe, Verified 02/07/23 10:49) cardiac arrest HPI HPI Comments History of Present Illness Details Please is a very pleasant 62-year-old female patient of Dr. Zurita. She has a past medical history of interstitial cystitis, depression, hyperlipidemia, and anxiety. She presents to the office today for follow-up of her interstitial cystitis. In discussion with the patient today she reports having follow-up with Dr. Pittman for her longstanding history of interstitial cystitis. She reports interstitial cystitis was initially diagnosed in 1998 and had been doing well with diet control. However, her early last year has been having ongoing issues with her interstitial cystitis. In review of patient's chart it appears cystoscopy hydrodistention was performed on 04/28 in she has since been undergoing weekly bladder instillations with some improvement. However, she continues to report bladder pressure with urinary urgency and frequency throughout the day. Discussed at length potential causes of interstitial cystitis. Discussed further treatment options with repeat cystoscopy hydrodistention as patient reports she had some relief with this procedure. Discuss trial of low-dose Cialis for bladder stability. In office urinalysis results reviewed with the patient today. When asked she denies ncontinence, nocturia, hematuria, foul smelling urine, changes to urinary stream, flank pain, fever, and or chills. She reports feeling symptoms vary day to day. She reports having trialed Pyridium and Vistaril with no relief. There was an attempt to obtain prior authorization on Uribel however was unsuccessful. She wishes to continue with weekly bladder instillations with nursing and would like to undergo cystoscopy hydrodistention. Discussed risks and benefits at length. All questions were answered Review of charts: The patient has history of interstitial cystitis and underwent cystoscopy hydrodistention on 04/12/2022. The initial bladder capacity measured 650 mL and after bladder distention the bladder capacity was 900 ml. No glomerulations or Tomas ulcerations were visualized. The patient also has history of recurrent UTIs. She completed 12 week bladder instillation with significant improvement in her bladder symptoms. Imagin03/21/22 - CT KUB, kidneys were within n ormal limits question 2 mm stone seen in the bladder. (cystoscopy 04/12/22 no bladder stone) PFSH Medical History Sinusitis Bladder disease H/O nonmelanoma skin cancer Surgical History History of bladder surgery H/O: hysterectomy History of nasal surgery S/P AURA (total abdominal hysterectomy) History of bunionectomy Status post trigger finger release History of carpal tunnel release Family History Mother Pacemaker Social History Housing: House Patient Tobacco Use Status: Never used Tobacco e-Cigarette/Vaping Use: Never Used service: No Current occupational status: employed Current occupation: Self employed Cognitive needs: No Hearing needs: No Vision needs: No Review of Systems Const Reports as per HPI Eyes Reports no additional complaints ENT Reports no additional complaints Card Reports as per HPI Resp Reports no additional complaints GI Reports no additional complaints Reports as per HPI Musc Reports no additional complaints Neuro Reports no additional complaints Psych Reports as per HPI Endo Reports no additional complaints Misael/Lymph Reports no additional complaints Aller/Immun Reports no additional complaints Physical Exam Const General: cooperative, healthy appearing, comfortable, no acute distress, well developed, alert and awake Orientation/consciousness: patient oriented x3 Limitations: no limitations HEENT Head: Yes normal to inspection, Yes normocephalic and Yes atraumatic Ears: hearing grossly normal bilaterally Eyes General: appearance normal, both eyes and all related structures Neck Neck: Yes normal visual inspection and Yes trachea midline Chest Chest palpation & inspection: normal inspection of the chest Resp Effort & Inspection: normal respiratory effort and able to speak in complete sentences Cardio Rate: regular rate GI Inspection: Yes normal to inspection General: Yes no CVA tenderness Back/Spine/Pelvis Back: no CVA tenderness Skin General skin exam: no rashes or lesions noted Neuro General: patient oriented x3 Extrem General: Yes normal to inspection Psych Appearance: grossly normal and well kempt Mental Status: mental status grossly normal Speech and movement: Normal speech and movement present and Clear speech present Affect: normal affect Attitude: cooperative Thought process: Normal thought process present Thought content: Normal thought content present Insight: Good insight present (Psych) Judgement: Good judgement present (Psych) Office Procedures Bladder/Catheter Procedure Details: pt presents to office for IC instillation. 12 fr straight cath used to empty bladder and instill: 10 mls bupivicaine 0.50% 10 mls lidocaine 2% 10 mls lidocaine urojet 2 mls (10,000 units) heparin 1 ml (40 mg) solumedrol 60335-Jujkoxpzvc of Bladder 97866-Rlwcnn Bladder Catheter Procedure code (CPT) selection complete Results AMB Urinalysis, Automated UA Leukoctes 0 Kristian/uL Last Edit by [email or web address]parisa Pruetttin on 02/07/23 11:10 UA Nitrite Negative Last Edit by [email or web address]isa Pruetttin on 02/07/23 11:10 UA Urobilinogen 0.2 mg/dL Last Edit by ENJORE Sebletin on 02/07/23 11:10 UA Protein 15 mg/dL Last Edit by ENJORE Sebletin on 02/07/23 11:10 UA pH 6.0 Last Edit by ImmusanTparisa Pruetttin on 02/07/23 11:10 UA Blood 10 Kp/uL Last Edit by ENJORE Sebletin on 02/07/23 11:10 UA Specific [place] 1.025 Last Edit by ENJORE Sebletin on 02/07/23 11:10 UA Ketone Negative Last Edit by ImmusanTparisa Sebletin on 02/07/23 11:10 UA Bilirubin 0 mg/dL Last Edit by ENJORE Sebletin on 02/07/23 11:10 UA Glucose 0 mg/dL Last Edit by [email or web address] on 02/07/23 11:10 Results Reviewed Results Reviewed: Laboratory Last Values Urine pH (Auto) 6.0 02/07/23 10:51 Specific [place] (Auto) 1.025 02/07/23 10:51 Urine Protein (Auto) 15 mg/dL 02/07/23 10:51 Glucose (UA)(Auto) 0 mg/dL 02/07/23 10:51 Urine Ketones (Auto) Negative 02/07/23 10:51 Urine Blood (Auto) 10 Kp/uL 02/07/23 10:51 Urine Nitrite (Auto) Negative 02/07/23 10:51 Urine Bilirubin (Auto) 0 mg/dL 02/07/23 10:51 Urine Urobilinogen (Auto) 0.2 mg/dL 02/07/23 10:51 Leukocyte Esterase (Auto) 0 Kristian/uL 02/07/23 10:51 Assessment & Plan Assessment & Plan (1) Bladder pain: Code(s): R39.89 - Other symptoms and signs involving the genitourinary system (2) Recurrent UTI: Code(s): N39.0 - Urinary tract infection, site not specified (3) Interstitial cystitis (chronic) with hematuria: Code(s): N30.11 - Interstitial cystitis (chronic) with hematuria (4) Sensation of pressure in bladder area: Code(s): R39.89 - Other symptoms and signs involving the genitourinary system Plan: Risks, benefits and alternatives to therapy were discussed. These include but are not limited to infection, bleeding, damage to local organs and tissues, need for further interventions. ? Anesthetic risks regarding cardiac arrhythmia, blood clots, and potential mortality were discussed. The patient understands the typical recovery time and the outpatient nature of the procedure. After consideration of these risks the patient gives full informed consent and they wish to move ahead with the procedure. Plan In office urinalysis results reviewed with the patient today; as noted above. Bladder instillation was performed by nursing. Discussed at length potential causes for interstitial cystitis as well as f urther treatment options. Discussed at length risks and benefits of cystoscopy hydrodistention Start Cialis 5 mg daily as discussed and prescribed. Discussed bladder triggers/irritants. Discussed, educated, encouraged on the importance of drinking plenty of water daily. Will schedule for cystoscopy hydrodistention with Dr. Diaz Will continue with weekly bladder installations with nursing; her or sooner with any issues, concerns, and or questions. Orders: Orders AMB Urinalysis Automated Today Z13.9 - Encounter for screening, unspecified AMB Bladder/Catheter Procedure Today N30.11 - Interstitial cystitis (chronic) with hematuria Medications: New tadalafil (Cialis) [id number] [facility] [id number] Member [id number] 5 mg PO DAILY 90 tabs 2RF 90 days Patient Instructions: The patient had an opportunity to ask questions regarding the treatment plan. All questions were answered. Physical exam, labs, and imaging were discussed and reviewed in detail. As well as risks, benefits, and discussion of treatment choices. No major barriers to understanding were identified. The patient exp ressed understanding and agreement with the above treatment plan. The patient was made aware they should contact our office by phone for worsening of their current condition, the appearance of new symptoms, or with any questions or concerns. Compliance is encouraged with any medications and follow up testing that is ordered. It is a privilege to be allowed the opportunity to participate in? your urological care.? Again, if you have any questions or concerns If you have any questions or concerns please do not hesitate to contact me. The office is [phone]. This note is constructed using voice recognition software. While every effort has been made to ensure accuracy president & founder errors may have been included. Yours sincerely, VANITA Padron Coding Level of Care Code Est Pt Level 4 (05588) Diagnoses Bladder pain R39.89 Recurrent UTI N39.0 Interstitial cystitis (chronic) with hematuria N30.11 Sensation of pressure in bladder area R39.89 CPT Codes Bladder/Catheter Procedure - CPT: 11801-Hxopmjblzm of Bladder ([id number]) Bladder/Catheter Procedure - CPT: 86236-Odretc Bladder Catheter ([id number])
== END 2023-02-07 11:44 | disposition home or self-care (01) ==
PROVIDERS: PCP Hospitalist; Visit Provider Nurse Practitioner Family
DX: R39.89 Other symptoms and signs involving the genitourinary system (principal); N30.11 Interstitial cystitis (chronic) with hematuria; Z13.9 Encounter for screening, unspecified
CPT/HCPCS: 51700; 99214

== ENCOUNTER → 2023-02-07 10:44 | Outpatient (BNVA) | payer OTHER, SELFPAY | PROVIDERS: PCP Hospitalist; Visit Provider Nurse Practitioner Family | DX: N30.11 Interstitial cystitis (chronic) with hematuria (principal); R39.89 Other symptoms and signs involving the genitourinary system | CPT/HCPCS: 51700; 81003; 99212 ==

== ENCOUNTER 2023-02-13 12:13 | Day surgery (SDC) | payer OTHER, SELFPAY ==
--- NOTE | 2023-02-10 10:28 | HO.ANESPROP2 ---
Documented by User: Camila Ramos NP 02/10/23 10:29 HPI - Anesthesia Eval Consult details Narrative: 62yo F for Cystoscopy Hydrodistention of Bladder PMFSH Active Problems Active Problems: All Active Problems (Updated 01/07/23 @ 14:16 by Nori Fortune CNP) BMI 29.0-29.9,adult (Acute) High cholesterol (Acute) Normal physical exam (Acute) BMI 28.0-28.9,adult (Acute) Bladder pain (Acute) Recurrent UTI (Acute) Sensation of pressure in bladder area (Acute) Interstitial cystitis (chronic) with hematuria (Acute) Gross hematuria (Acute) Past Medical History Medical History Sinusitis Bladder disease H/O nonmelanoma skin cancer Family History Family History Mother Pacemaker Family history of problems with anesthesia: No Surgical History Surgical History History of bladder surgery H/O: hysterectomy History of nasal surgery S/P AURA (total abdominal hysterectomy) History of bunionectomy Status post trigger finger release History of carpal tunnel release History of Problems with Anesthesia: No Social History Social History Housing: House Patient Tobacco Use Status: Never used Tobacco e-Cigarette/Vaping Use: Never Used Second Hand Smoke Exposure: No Use of substances other than those prescribed or required for medical reasons: No Are you DNR?: No Advance Directives: No Advance Directives Information Provided: Yes Advance Directives on File: No service: No Current occupational status: employed Current occupation: Self employed Cognitive needs: No Hearing needs: No Vision needs: No Meds Allergies Allergy/AdvReac Type Severity Reaction Status Date / Time iodine Allergy Severe cardiac Verified 02/07/23 10:49 arrest Home Medications Medication Instructions Recorded Confirmed Last Taken Type alprazolam 0.5 mg tablet 0.25 - 0.5 mg PO DAILY PRN anxiety 04/04/22 12/28/22 Unknown History venlafaxine 150 mg 150 mg PO DAILY 04/04/22 12/28/22 Unknown History capsule,extended release 24 hr valacyclovir 500 mg tablet 500 mg PO DAILY 05/19/22 12/28/22 Unknown History Exam Pertinent Lab Results Pertinent Lab Results: Laboratory Tests 01/06/23 20:06 WBC 9.0 Hgb 12.7 Hct 37.8 Plt Count 219 Sodium 142 Potassium 4.0 Chloride 107 Carbon Dioxide 28 BUN 17 H Creatinine 0.87 Assessment and Plan Assessment Anesthesia Assessment: Chart Reviewed Final Anesthetic Review Family History of Problems with Anesthesia: No History of Problems with Anesthesia: No Documented by User: Vane Marshall MD 02/13/23 14:04 [facility] Past Medical History Medical History Sinusitis Bladder disease H/O nonmelanoma skin cancer Family History Family History Mother Pacemaker Surgical History Surgical History History of bladder surgery H/O: hysterectomy History of nasal surgery S/P AURA (total abdominal hysterectomy) History of bunionectomy Status post trigger finger release History of carpal tunnel release Social History Social History Housing: House Patient Tobacco Use Status: Never used Tobacco e-Cigarette/Vaping Use: Never Used Second Hand Smoke Exposure: No Use of substances other than those prescribed or required for medical reasons: No Are you DNR?: No Advance Directives: No Advance Directives Information Provided: Yes Advance Directives on File: No service: No Current occupational status: employed Current occupation: Self employed Cognitive needs: No Hearing needs: No Vision needs: No Meds Allergies Allergy/AdvReac Type Severity Reaction Status Date / Time iodine Allergy Severe cardiac Verified 02/07/23 10:49 arrest Home Medications Medication Instructions Recorded Confirmed Last Taken Type alprazolam 0.5 mg tablet 0.25 - 0.5 mg PO DAILY PRN anxiety 04/04/22 12/28/22 Unknown History venlafaxine 150 mg 150 mg PO DAILY 04/04/22 12/28/22 Unknown History capsule,extended release 24 hr valacyclovir 500 mg tablet 500 mg PO DAILY 05/19/22 12/28/22 Unknown History Exam Airway Mallampati Class: II TM Dist: >3cm Neck ROM: Full Heart: rrr Lungs: cta Assessment and Plan Assessment Anesthesia Assessment: Anesthesia Plan Discussed Final Anesthetic Review NPO: Yes ASA Class: II Final Preanesthetic Review: No Changes in Pt Med Stat, Meds/Allgs Chart Reviewed and Consent Obtained/Reviewed Patient Risk: Intermediate Procedure Risk: Intermediate Anesthetic Plan Anesthetic Plan: GA Disposition: Standard PACU
[2023-02-13 12:40] VITALS: BMI 29.3
[2023-02-13 13:05] VITALS: BP 124/79; PULSE 74; RESP 16; TEMP 36.4; O2SAT 98
--- NOTE | 2023-02-13 13:47 | MHC.SHP ---
Pre-Procedural Eval Section A Date of Service: 02/13/23 The patient is an INPATIENT: No Changes since office visit: No Cold of Flu in the past 2 weeks, No New Medical Problems, No Changes in Medication and No Patient answered all questions The History & Physical has been completed within 30 days and I have reviewed it.: Yes Section B Chief Complaint: Interstitial cystitis (chronic) with hematuria Details of Present Illness: hydrodistention Allergies: Allergies Allergy/AdvReac Type Severity Reaction Status Date / Time iodine Allergy Severe cardiac Verified 02/07/23 10:49 arrest Plan Diagnosis/Plan: Unchanged I have reviewed the history and physical and performed a pertinent physical examination on my patient. No changes have occurred unless specified. Time Spent With Patient Time: Total time managing care of this patient today ____ minutes.
--- NOTE | 2023-02-13 14:51 | W.PM.OPN ---
Operative Note Operative Note Date of Service: 02/13/23 Narrative: PreOperative Diagnosis: Interstitial cystitis with pelvic pain Post Operative Diagnosis: Interstitial cystitis with pelvic pain Procedure: Hydrodistention Surgeon: Dr Agustin Diaz Anesthesia: General Indications for procedure: Persistent pain Procedure: After informed consent was verified the patient was brought to the operating room and placed in a supine position. Anesthesia was administered per protocol. The patient was placed in a modified dorsal lithotomy position and prepped and draped in sterile fashion. Safety pause time-out was observed. Antibiotics being given. A 22 [place] cystoscope was used to empty the bladder. A mixture of bupivacaine lidocaine gel 20 cc was instilled into the bladder and allowed to sit for 2-3 minutes. A belladonna and opiate rectal suppository was placed. Hydrodistention of the bladder was performed. The bladder was filled and allowed to sit for 2 minutes. Filling was from a height of 1 m. On the 1st fill there was 735 cc within the bladder. Cystoscopy revealed glomerulations consistent with interstitial cystitis. Second filling of the bladder was performed in similar fashion. Volume was approximately 750 cc. Terminal hematuria noted. The the bladder was emptied. The patient tolerated procedure well was extubated in operating room transferred in stable condition to the recovery area. Appropriate postprocedure pain medication was provided. Pathology: [] Drains: None
[2023-02-13 14:52] VITALS: BP 119/71; PULSE 71; RESP 16; TEMP 36.1; O2SAT 96
[2023-02-13 14:57] VITALS: BP 137/72; PULSE 76; RESP 15; O2SAT 96
[2023-02-13 15:02] VITALS: BP 125/68; PULSE 80; RESP 14; O2SAT 97
[2023-02-13 15:07] VITALS: BP 146/82; PULSE 78; RESP 16; O2SAT 97
[2023-02-13 15:22] VITALS: BP 130/57; PULSE 69; RESP 16; TEMP 36.3; O2SAT 97
== END 2023-02-13 15:58 | disposition home or self-care (01) ==
PROVIDERS: PCP Family Medicine; Visit Provider Urology
PROC: 0T7B7ZZ Dilation of Bladder, Via Natural or Artificial Opening (ICD-10-PCS; CPT 52260; principal; 2023-02-13 13:30)
DX: N30.11 Interstitial cystitis (chronic) with hematuria (principal); R39.89 Other symptoms and signs involving the genitourinary system; R10.2 Pelvic and perineal pain; E78.5 Hyperlipidemia, unspecified; F32.A Depression, unspecified; F41.9 Anxiety disorder, unspecified; Z79.899 Other long term (current) drug therapy; Z91.041 Radiographic dye allergy status; Z85.828 Personal history of other malignant neoplasm of skin; Z98.890 Other specified postprocedural states
CPT/HCPCS: 52260; J1100; J2405; J2704; J3010

== ENCOUNTER → 2023-02-13 12:13 | Outpatient (BNV) | payer OTHER, SELFPAY | PROVIDERS: PCP Family Medicine; Visit Provider Urology | DX: N30.11 Interstitial cystitis (chronic) with hematuria (principal) | CPT/HCPCS: 52260 ==

== ENCOUNTER → 2023-03-02 10:30 | Outpatient (BNVA) | payer OTHER, SELFPAY | PROVIDERS: PCP Hospitalist; Visit Provider Nurse Practitioner Family | DX: N30.11 Interstitial cystitis (chronic) with hematuria (principal) | CPT/HCPCS: 51798 ==

== ENCOUNTER 2023-03-17 13:04 | Outpatient (AMB) | payer OTHER, SELFPAY ==
[2023-03-17 13:11] VITALS: BP 122/72; PULSE 81; O2SAT 97; BMI 29.3
--- NOTE | 2023-03-17 13:16 | A.OFFPC_ITS ---
Vital Signs 03/17/23 13:11 Height 5 ft Weight 150 lb BMI 29.3 BP 122/72 Blood Pressure Location Lt brachial Position Sitting Pulse 81 Pulse Source Pulse Oximeter Pulse Oximetry (%) 97 Oxygen Delivery Method Room Air Intake Visit Reasons: [facility] podiatry referral Intake Note: Patient is here for podiatry referral, and would like to go over labs, and left ear feels like there is fluid. Allergies iodine Allergy (Severe, Verified 03/17/23 13:15) cardiac arrest Tobacco use date assessed: 05/19/22 Dental Screening Dental Screen Date: 03/17/23 Did you have a dental visit in the last 12 months?: Yes Did you have a dental problem in the last 6 months where you did not have access to dental care?: No Was dental information given to patient?: Patient has dentist HPI [facility] podiatry referral HPI Details Transfer of Prior PCP:?[facility] Last office visit/CPE: Acute issue(s): pod, labs PMHx: Anx/Depression - Managed by PSY; Dr. Solares. Cystitis, Bunion, Basal Cell CA SurgHx: Bunion surgery R foot Dystension Dr. Montez. Hysterectomy FHx: Mom: Pacemaker SocHx: Nonsmoker. EtOH none. No drugs. PFSH Medical History Sinusitis Bladder disease H/O nonmelanoma skin cancer Surgical History History of bladder surgery H/O: hysterectomy History of nasal surgery S/P AURA (total abdominal hysterectomy) History of bunionectomy Status post trigger finger release History of carpal tunnel release Family History Mother Pacemaker Social History Housing: House Patient Tobacco Use Status: Never used Tobacco e-Cigarette/Vaping Use: Never Used Second Hand Smoke Exposure: No service: No Current occupational status: employed Current occupation: Self employed Cognitive needs: No Hearing needs: No Vision needs: No Questionnaire PHQ-9 Over the last 2 weeks, how often have you been bothered by any of the following problems? 1. Little interest or pleasure in doing things: not at all 2. Feeling down, depressed, or hopeless: not at all 3. Trouble falling or staying asleep, or sleeping too much: not at all 4. Feeling tired or having little energy: not at all 5. Poor appetite or overeating: not at all 6. Feeling bad about yourself - or that you are a failure or have let yourself or your family down: not at all 7. Trouble concentrating on things, such as reading the newspaper or watching television: not at all 8. Moving or speaking so slowly that other people could have noticed. Or the opposite - being so fidgety or restless that you have been moving around a lot more than usual: not at all 9. Thoughts that you would be better off or of hurting yourself in some way: not at all Total score: 0 Depression Screening Interpretation: Negative Depression Screening Done: Yes 03705 - PHQ-9 Billing: Yes Source: Developed by Drs. Salo Stratton, Dami Delgado and colleagues, with an educational nickie from [employer]. Thrive Questionnaire Date Thrive assessed: 05/19/22 AUDIT C Alcohol Use Questionnaire (AUDIT-C) 1. How often do you have a drink containing alcohol?: Never 3. How often do you have six or more drinks on one occasion?: Never Total Score: 0 RAO-7 AMB Questionnaire RAO-7 Date RAO - 7 assessed: 03/17/23 Feeling nervous, anxious, or on edge: 3 = Nearly every day Not being able to stop or control worryin = Nearly every day Worrying too much about different things: 3 = Nearly every day Trouble relaxin = Several days Being so restless that it is hard to sit still: 0 = Not at all Becoming easily annoyed or irritable: 0 = Not at all Feeling afraid as if something awful might happen: 0 = Not at all Total RAO-7 score (0-4 normal; 5-9 mild; 10-14 moderate; 15-21 severe): 10 Source: Developed by Drs. Salo Stratton, Dami Delgado and colleagues, with an educational nickie from [employer]. RAO-7 Assessment Billing RAO-7 Assessment Tool: RAO-7 Assessment 26567 Physical exam (Primary Care) Vital Signs: Last Vital Signs Pulse 81 03/17/23 13:11 BP 122/72 03/17/23 13:11 Pulse Ox 97 03/17/23 13:11 Oxygen Delivery Method Room Air 03/17/23 13:11 BMI result Body Mass Index 29.3 Tobacco/Smoking Status: Tobacco use Status Tobacco use date assessed 05/19/22 03/17/23 13:20 Patient Tobacco Use Status Never used Tobacco 03/17/23 13:20 e-Cigarette/Vaping Use Never Used 03/17/23 13:20 PHQ-9: PHQ-9 Score PHQ-9: Total score 0 03/17/23 13:58 Depression Screening Interpretation: Negative Thrive Assessment: Date of Thrive Assessment Date Thrive assessed 05/19/22 03/17/23 13:20 Assessment and Plan Assessment & Plan (1) Interstitial cystitis (chronic) with hematuria: Code(s): N30.11 - Interstitial cystitis (chronic) with hematuria Plan: Followed?by? (2) Anxiety: Code(s): F41.9 - Anxiety disorder, unspecified Plan: Patient?is?followed?by?Psychiatry. Medications?managed?by?her?psychiatrist (3) High cholesterol: Code(s): E78.00 - Pure hypercholesterolemia, unspecified Plan: LDL?cholesterol?shows?good?control. She?would?like?to?trial?taking?20?mg?of?atorvastatin?rather?than?40 Encouraged?weight?loss She?will?take?atorvastatin?20?mg?daily?and?we?will?follow- up?in?a?couple?of?months (4) Paresthesias: Code(s): R20.2 - Paresthesia of skin Plan: Paresthesias?of?the?forefoot?of?bilateral?feet This?seems?to?come?and?go?and?be?associated?with?standing?and?walking Referred?to?Podiatry?at?patient?request (5) Anxiety with depression: Code(s): F41.8 - Other specified anxiety disorders Plan: Stable?and?managed?by?Psychiatry (6) Cerumen impaction: Code(s): H61.20 - Impacted cerumen, unspecified ear Plan: Left?ear?cerumen?impaction Ear?lavage Can?use?Debrox?drops?at?home (7) Elevated ALT measurement: Code(s): R74.01 - Elevation of levels of liver transaminase levels Plan: Mildly?elevated?ALT?liver?enzymes. Likely?fatty?liver?disease.??Advise?she?work?at?weight?loss?and?we?will?recheck? in?about?2?months.??If?the?same?or?higher,?would?check?liver?ultrasound (8) Laboratory exam ordered as part of routine general medical examination: Code(s): Z00.00 - Encounter for general adult medical examination without abnormal findings Orders: Orders Comprehensive [place]. Panel Fast Today R74.01 - Elevation of levels of liver transaminase levels, Z00.00 - Encounter for general adult medical examination without abnormal findings Lipid Panel Today E78.00 - Pure hypercholesterolemia, unspecified, Z00.00 - Encounter for general adult medical examination without abnormal findings Hemoglobin A1c Today R73.01 - Impaired fasting glucose, Z68.29 - Body mass index [BMI] 29.0-29.9, adult Referrals Podiatry Referral R20.2 - Paresthesia of skin Medications: Changed From atorvastatin 40 mg PO BEDTIME 90 tabs 3RF E78.00 - Pure hypercholesterolem ia, unspecified To atorvastatin 20 mg PO BEDTIME 90 days 90 tabs 3RF E78.00 - Pure hypercholesterolemia, unspecified Coding Level of Care Code Est Pt Level 3 (27041) Diagnoses Interstitial cystitis (chronic) with hematuria N30.11 Anxiety F41.9 High cholesterol E78.00 Paresthesias R20.2 Anxiety with depression F41.8 Cerumen impaction H61.20 Elevated ALT measurement R74.01 Laboratory exam ordered as part of routine general medical examination Z00.00 Additional Codes RAO-7 Assessment Billing - RAO-7 Assessment Tool: RAO-7 Assessment 12296 ([id number])
== END 2023-03-17 14:44 | disposition home or self-care (01) ==
PROVIDERS: PCP Family Medicine; Visit Provider Family Medicine
DX: E78.00 Pure hypercholesterolemia, unspecified (principal); N30.11 Interstitial cystitis (chronic) with hematuria; H61.22 Impacted cerumen, left ear; F41.9 Anxiety disorder, unspecified; R20.2 Paresthesia of skin; F41.8 Other specified anxiety disorders; R74.01 Elevation of levels of liver transaminase levels
CPT/HCPCS: 99213

== ENCOUNTER 2023-04-13 14:40 | Outpatient (AMB) | payer OTHER, SELFPAY ==
--- NOTE | 2023-04-13 14:43 | MHC.OFFVIS ---
Intake Intake Visit Reasons: 6w/PVR/med/s/p hydrodist Intake Note: Patient is Present for Follow Up Urology Medication: Solifenacin, Antibiotic Allergies:None Blood Thinners: None PVR: 0 Patient states that she is feeling a lot better Allergies iodine Allergy (Severe, Verified 04/13/23 20:35) cardiac arrest Medication List - Last Reconciled 04/13/23 by DAVIN PadronP- alprazolam 0.25 - 0.5 mg PO DAILY PRN atorvastatin 20 mg PO BEDTIME 90 days hydroxyzine pamoate (Vistaril) 50 mg PO BEDTIME oxycodone-acetaminophen 5-325 mg 1 tab PO Q4H PRN 7 days solifenacin 5 mg PO DAILY 30 days valacyclovir 500 mg PO DAILY venlafaxine ER 150 mg PO DAILY HPI HPI Comments History of Present Illness Details Please is a very pleasant 63-year-old female patient of Dr. Zurita. She has a past medical history of interstitial cystitis, depression, hyperlipidemia, and anxiety. She presents to the office today for follow-up of her interstitial cystitis. Of note, patient underwent cystoscopy hydrodistention with Dr. Diaz 03/01. In discussion with the patient today she reports to be doing and feeling well. She reports to have stopped taking 5 mg of Cialis daily as she felt this was making her rosacea worse although she did feel improvement in urinary urgency, urinary frequency, and bladder pressure. She reports postprocedure she had been experiencing mild lower urinary tract symptoms however has been doing and feeling well for over 6 weeks. She reports to be happy with her current voiding parameters on 5 mg of VESIcare daily. She continues with interstitial cystitis diet. She discusses her longstanding history of interstitial cystitis and initial diagnosis in 1998. In office urinalysis results reviewed with the patient today. When asked she denies incontinence, nocturia, hematuria, foul smelling urine, changes to urinary stream, flank pain, fever, and or chills. She reports having trialed Pyridium and Vistaril in the past with no relief. There was an attempt to obtain prior authorization on Uribel however was unsuccessful. Review of charts: The patient has history of interstitial cystitis and underwent cystoscopy hydrodistention on 04/12/2022. The initial bladder capacity measured 650 mL and after bladder distention the bladder capacity was 900 ml. No glomerulations or Tomas ulcerations were visualized. The patient also has history of recurrent UTIs. She completed 12 week bladder instillation with significant improvement in her bladder symptoms. Imagin03/21/22 - CT KUB, kidneys were within normal limits question 2 mm stone seen in the bladder. (cystoscopy 04/12/22 no bladder stone) PFSH Medical History Sinusitis Bladder disease H/O nonmelanoma skin cancer Surgical History History of bladder surgery H/O: hysterectomy History of nasal surgery S/P AURA (total abdominal hysterectomy) History of bunionectomy Status post trigger finger release History of carpal tunnel release Family History Mother Pacemaker Social History Housing: House Patient Tobacco Use Status: Never used Tobacco e-Cigarette/Vaping Use: Never Used Second Hand Smoke Exposure: No service: No Current occupational status: employed Current occupation: Self employed Cognitive needs: No Hearing needs: No Vision needs: No Review of Systems Const Reports as per HPI Eyes Reports no additional complaints ENT Reports no additional complaints Card Reports as per HPI Resp Reports no additional complaints GI Reports no additional complaints Reports as per HPI Musc Reports no additional complaints Neuro Reports no additional complaints Psych Reports as per HPI Endo Reports no additional complaints Misael/Lymph Reports no additional complaints Aller/Immun Reports no additional complaints Physical Exam Const General: cooperative, healthy appearing, comfortable, no acute distress, well developed, alert and awake Orientation/consciousness: patient oriented x3 Limitations: no limitations HEENT Head: Yes normal to inspection, Yes normocephalic and Yes atraumatic Ears: hearing grossly normal bilaterally Eyes General: appearance normal, both eyes and all related structures Neck Neck: Yes normal visual inspection and Yes trachea midline Chest Chest palpation & inspection: normal inspection of the chest Resp Effort & Inspection: normal respiratory effort and able to speak in complete sentences Cardio Rate: regular rate GI Inspection: Yes normal to inspection General: Yes no CVA tenderness Back/Spine/Pelvis Back: no CVA tenderness Skin General skin exam: no rashes or lesions noted Neuro General: patient oriented x3 Extrem General: Yes normal to inspection Psych Appearance: grossly normal and well kempt Mental Status: mental status grossly normal Speech and movement: Normal speech and movement present and Clear speech present Affect: normal affect Attitude: cooperative Thought process: Normal thought process present Thought content: Normal thought content present Insight: Good insight present (Psych) Judgement: Good judgement present (Psych) Office Procedures Post Void Residual Post Residual Void Post Void Residual (PVR): 0 12514-Demv Void Residual by ultrasound Results AMB Urinalysis, Automated UA Leukoctes 0 Kristian/uL Last Edit by NALINI Bertrand on 04/13/23 14:56 UA Nitrite Negative Last Edit by Carmella Espinosa [facility] on 04/13/23 14:56 UA Urobilinogen 0.2 mg/dL Last Edit by Carmella Espinosa [facility] on 04/13/23 14:56 UA Protein 0 mg/dL Last Edit by Carmella Espinosa [facility] on 04/13/23 14:56 UA pH 5.5 Last Edit by Carmella Espinosa [facility] on 04/13/23 14:56 UA Blood 0 Kp/uL Last Edit by Carmella Espinosa [facility] on 04/13/23 14:56 UA Specific [place] 1.020 Last Edit by Carmella Espinosa [facility] on 04/13/23 14:56 UA Ketone Negative Last Edit by Carmella Espinosa [facility] on 04/13/23 14:56 UA Bilirubin 0 mg/dL Last Edit by Carmella Espinosa [facility] on 04/13/23 14:56 UA Glucose 0 mg/dL Last Edit by Carmella Espinosa [facility] on 04/13/23 14:56 Results Reviewed Results Reviewed: Laboratory Last Values Urine pH (Auto) 5.5 04/13/23 14:54 Specific [place] (Auto) 1.020 04/13/23 14:54 Urine Protein (Auto) 0 mg/dL 04/13/23 14:54 Glucose (UA)(Auto) 0 mg/dL 04/13/23 14:54 Urine Ketones (Auto) Negative 04/13/23 14:54 Urine Blood (Auto) 0 Kp/uL 04/13/23 14:54 Urine Nitrite (Auto) Negative 04/13/23 14:54 Urine Bilirubin (Auto) 0 mg/dL 04/13/23 14:54 Urine Urobilinogen (Auto) 0.2 mg/dL 04/13/23 14:54 Leukocyte Esterase (Auto) 0 Kristian/uL 04/13/23 14:54 Assessment & Plan Assessment & Plan (1) Bladder pain: Code(s): R39.89 - Other symptoms and signs involving the genitourinary system (2) Recurrent UTI: Code(s): N39.0 - Urinary tract infection, site not specified (3) Interstitial cystitis (chronic) with hematuria: Code(s): N30.11 - Interstitial cystitis (chronic) with hematuria (4) Sensation of pressure in bladder area: Code(s): R39.89 - Other symptoms and signs involving the genitourinary system Plan In office urinalysis results reviewed with the patient today; as noted above. Discussed at length potential causes for interstitial cystitis as well as further treatment options. Continue VESIcare 5 mg daily; patient will try taking every other day as symptoms have been well controlled; refill provided Discussed bladder triggers/irritants. Discussed, educated, encouraged on the importance of drinking plenty of water daily. She otherwise denies any bothersome urinary issues or concerns. She is happy with her current voiding parameters. Follow-up in 3 months with PVR; or sooner with any issues, concerns, and or questions. Orders: Orders AMB Post Void Residual by ultrasound Today N39.0 - Urinary tract infection, site not specified AMB Urinalysis Automated Today N39.0 - Urinary tract infection, site not specified, Z13.9 - Encounter for screening, unspecified Medications: Refilled solifenacin 5 mg PO DAILY 30 days 30 tabs 3RF N30.11 - Interstitial cystitis (chronic) with hematuria Patient Instructions: The patient had an opportunity to ask questions regarding the treatment plan. All questions were answered. Physical exam, labs, and imaging were discussed and reviewed in detail. As well as risks, benefits, and discussion of treatment choices. No major barriers to understanding were identified. The patient expressed understanding and agreement with the above treatment plan. The patient was made aware they should contact our office by phone for worsening of their current condition, the appearance of new symptoms, or with any questions or concerns. Compliance is encouraged with any medications and follow up testing that is ordered. It is a privilege to be allowed the opportunity to participate in? your urological care.? Again, if you have any questions or concerns If you have any questions or concerns please do not hesitate to contact me. The office is [phone]. This note is constructed using voice recognition software. While every effort has been made to ensure accuracy licensed esthetician errors may have been included. Yours sincerely, VANITA Padron Coding Level of Care Code Est Pt Level 3 (91493) Diagnoses Bladder pain R39.89 Recurrent UTI N39.0 Interstitial cystitis (chronic) with hematuria N30.11 Sensation of pressure in bladder area R39.89 CPT Codes Post Residual Void - PVR CPT Code: 41905-Ucuf Void Residual by ultrasound ([id number])
== END 2023-04-13 15:32 | disposition home or self-care (01) ==
PROVIDERS: PCP Hospitalist; Visit Provider Nurse Practitioner Family
DX: R39.89 Other symptoms and signs involving the genitourinary system (principal); N39.0 Urinary tract infection, site not specified; N30.11 Interstitial cystitis (chronic) with hematuria
CPT/HCPCS: 99213

== ENCOUNTER → 2023-04-13 14:40 | Outpatient (BNVA) | payer OTHER, SELFPAY | PROVIDERS: PCP Hospitalist; Visit Provider Nurse Practitioner Family | DX: R39.89 Other symptoms and signs involving the genitourinary system (principal); N39.0 Urinary tract infection, site not specified; N30.11 Interstitial cystitis (chronic) with hematuria | CPT/HCPCS: 51798; 81003; 99212 ==

== ENCOUNTER 2023-05-04 12:06 | Outpatient (REF) | payer OTHER, SELFPAY ==
[2023-05-04 13:59] LABS: Estimated Average Glucose 120 mg/dL; Hemoglobin A1c % 5.8 % (<6.0)
[2023-05-04 14:29] LABS: Alanine Aminotransferase 39 U/L (0-31); Albumin Level 4.3 g/dL (3.5-5.0); Alkaline Phosphatase 117 U/L (39-117); Anion Gap 13 (12-20); Aspartate Amino Transferase 27 U/L (5-31); Bilirubin Total 0.5 mg/dL (0.0-1.0); Blood Urea Nitrogen 13 mg/dL (9-16); Calcium 9.7 mg/dL (8.4-10.2); Carbon Dioxide 29 mmol/L (22-29); Chloride 105 mmol/L (96-108); Cholesterol 175 mg/dL (<200); Estimated Glomerular Filt Rate > 60; Glucose Fasting 92 mg/dL (60-99); HDL Cholesterol 63 mg/dL (>40); LDL Cholesterol Calculated 94 mg/dL (<100); Potassium 4.4 mmol/L (3.3-5.1); Sodium 143 mmol/L (135-145); Total Protein 7.2 g/dL (6.5-8.0); Triglycerides 94 mg/dL (<150)
== END 2023-05-04 12:07 | disposition home or self-care (01) ==
LOC: HO.HMGCLDS 12:06
PROVIDERS: PCP Family Medicine; Visit Provider Family Medicine
DX: Z00.00 Encounter for general adult medical examination without abnormal findings (principal); R73.01 Impaired fasting glucose; R74.01 Elevation of levels of liver transaminase levels; E78.00 Pure hypercholesterolemia, unspecified
CPT/HCPCS: 36415; 80053; 80061; 83036

== ENCOUNTER → 2023-05-10 11:45 | Outpatient (BNV) | payer OTHER, SELFPAY | PROVIDERS: PCP Family Medicine; Visit Provider Radiology Diagnostic Radiology | DX: Z12.31 Encounter for screening mammogram for malignant neoplasm of breast (principal) | CPT/HCPCS: 77063; 77067 ==

== ENCOUNTER 2023-05-10 12:00 | Outpatient (REF) | payer OTHER, SELFPAY | END 2023-05-10 12:01 | disposition home or self-care (01) | LOC: HO.MAMMO 12:00 | PROVIDERS: PCP Family Medicine; Visit Provider Internal Medicine | DX: Z12.31 Encounter for screening mammogram for malignant neoplasm of breast (principal) | CPT/HCPCS: 77063; 77067 ==

== ENCOUNTER 2023-08-31 14:38 | Outpatient (AMB) | payer OTHER, SELFPAY ==
--- NOTE | 2023-08-31 14:50 | A.OFFVIS_ITS ---
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 Zurita. She has a past medical history of interstitial cystitis, depression, hyperlipidemia, and anxiety. She presents to the office today for follow-up of her interstitial cystitis. Of note, patient underwent cystoscopy hydrodistention with Dr. Diaz 03/01. In discussion with the patient today she reports to be doing and feeling well. She reports utilizing VESIcare as needed when experiencing lower urinary tract symptoms. She had previously trialed low-dose Cialis for bladder stability however felt this made her rosacea worse. She continues with interstitial cystitis diet. She discusses her longstanding history of interstitial cystitis and initial diagnosis in 1998. In office urinalysis results reviewed with the patient today. She currently denies any bothersome urinary issues. She denies urinary urgency, urinary frequency, incontinence, nocturia, hematuria, foul smelling urine, changes to urinary stream, flank pain, fever, and or chills. She reports having trialed Pyridium and Vistaril in the past with no relief. She otherwise offers no other issues or concerns at this time. Previous notes: The patient has history of interstitial cystitis and underwent cystoscopy hydrodistention on 04/12/2022. The initial bladder capacity measured 650 mL and after bladder distention the bladder capacity was 900 ml. No glomerulations or Tomas ulcerations were visualized. The patient also has history of recurrent UTIs. She completed 12 week bladder instillation with significant improvement in her bladder symptoms. Imagin03/21/22 - CT KUB, kidneys were within normal limits question 2 mm stone seen in the bladder. (cystoscopy 04/12/22 no bladder stone) PFSH Medical History Sinusitis Bladder disease H/O nonmelanoma skin cancer Surgical History History of bladder surgery H/O: hysterectomy History of nasal surgery S/P AURA (total abdominal hysterectomy) History of bunionectomy Status post trigger finger release History of carpal tunnel release Family History Mother Pacemaker Social History Housing: House Patient Tobacco Use Status: Never used Tobacco e-Cigarette/Vaping Use: Never Used Second Hand Smoke Exposure: No service: No Current occupational status: employed Current occupation: Self employed Cognitive needs: No Hearing needs: No Vision needs: No Review of Systems Const Reports as per HPI Eyes Reports no additional complaints ENT Reports no additional complaints Card Reports as per HPI Resp Reports no additional complaints GI Reports no additional complaints Reports as per HPI Musc Reports no additional complaints Neuro Reports no additional complaints Psych Reports as per HPI Endo Reports no additional complaints Misael/Lymph Reports no additional complaints Aller/Immun Reports no additional complaints Physical Exam Const General: cooperative, healthy appearing, comfortable, no acute distress, well developed, alert and awake Orientation/consciousness: patient oriented x3 Limitations: no limitations HEENT Head: Yes normal to inspection, Yes normocephalic and Yes atraumatic Ears: hearing grossly normal bilaterally Eyes General: appearance normal, both eyes and all related structures Neck Neck: Yes normal visual inspection and Yes trachea midline Chest Chest palpation & inspection: normal inspection of the chest Resp Effort & Inspection: normal respiratory effort and able to speak in complete sentences Cardio Rate: regular rate GI Inspection: Yes normal to inspection General: Yes no CVA tenderness Back/Spine/Pelvis Back: no CVA tenderness Skin General skin exam: no rashes or lesions noted Neuro General: patient oriented x3 Extrem General: Yes normal to inspection Psych Appearance: grossly normal and well kempt Mental Status: mental status grossly normal Speech and movement: Normal speech and movement present and Clear speech present Affect: normal affect Attitude: cooperative Thought process: Normal thought process present Thought content: Normal thought content present Insight: Good insight present (Psych) Judgement: Good judgement present (Psych) Office Procedures Post Void Residual Post Residual Void Post Void Residual (PVR): 53 [id number]-Tbzu Void Residual by ultrasound Results AMB Urinalysis, Automated UA Leukoctes 0 Kristian/uL Last Edit by Carmella Espinosa [facility] on 08/31/23 14:59 UA Nitrite Negative Last Edit by Carmella Espinosa A on 08/31/23 14:59 UA Urobilinogen 0.2 mg/dL Last Edit by Carmella Espinosa [facility] on 08/31/23 14:5 9 UA Protein 6.0 mg/dL Last Edit by Carmella Espinosa A on 08/31/23 14:59 UA pH 6.0 Last Edit by Carmella Espinosa [facility] on 08/31/23 14:59 UA Blood 0 Kp/uL Last Edit by Carmella Espinosa [facility] on 08/31/23 14:59 UA Specific [place] 1.015 Last Edit by Carmella Espinosa A on 08/31/23 14: 59 UA Ketone Negative Last Edit by Carmella Espinosa [facility] on 08/31/23 14:59 UA Bilirubin 0 mg/dL Last Edit by Carmella Espinosa A on 08/31/23 14:59 UA Glucose 0 mg/dL Last Edit by Carmella Espinosa [facility] on 08/31/23 14:59 Results Reviewed Results Reviewed: Laboratory Last Values Urine pH (Auto) 6.0 08/31/23 14:58 Specific [place] (Auto) 1.015 08/31/23 14:58 Urine Protein (Auto) 6.0 mg/dL 08/31/23 14:58 Glucose (UA)(Auto) 0 mg/dL 08/31/23 14:58 Urine Ketones (Auto) Negative 08/31/23 14:58 Urine Blood (Auto) 0 Kp/uL 08/31/23 14:58 Urine Nitrite (Auto) Negative 08/31/23 14:58 Urine Bilirubin (Auto) 0 mg/dL 08/31/23 14:58 Urine Urobilinogen (Auto) 0.2 mg/dL 08/31/23 14:58 Leukocyte Esterase (Auto) 0 Kristian/uL 08/31/23 14:58 Assessment & Plan Assessment & Plan (1) Bladder pain: Code(s): R39.89 - Other symptoms and signs involving the genitourinary system Category: Medical (2) Recurrent UTI: Code(s): N39.0 - Urinary tract infection, site not specified Category: Medical (3) Interstitial cystitis (chronic) with hematuria: Code(s): N30.11 - Interstitial cystitis (chronic) with hematuria Category: Medical (4) Sensation of pressure in bladder area: Code(s): R39.89 - Other symptoms and signs involving the genitourinary system Category: Medical Plan In office urinalysis results reviewed with the patient today; as noted above. PVR 53ml's. Discussed at length potential causes for interstitial cystitis as well as further treatment options. Continue VESIcare 5 mg PRN. Discussed bladder triggers/irritants. Discussed, educated, encouraged on the importance of drinking plenty of water daily. She denies any bothersome urinary issues or concerns. She is happy with her current voiding parameters. Follow-up in 6 months with PVR; or sooner with any issues, concerns, and or questions. Orders: Orders AMB Urinalysis Automated Today Z13.9 - Encounter for screening, unspecified AMB Post Void Residual by ultrasound Today N39.0 - Urinary tract infection, site not specified Patient Instructions: The patient had an opportunity to ask questions regarding the treatment plan. All questions were answered. Physical exam, labs, and imaging were discussed and reviewed in detail. As well as risks, benefits, and discussion of treatment choices. No major barriers to understanding were identified. The patient expressed understanding and agreement with the above treatment plan. The patient was made aware they should contact our office by phone for worsening of their current condition, the appearance of new symptoms, or with any questions or concerns. Compliance is encouraged with any medications and follow up testing that is ordered. It is a privilege to be allowed the opportunity to participate in? your urological care.? Again, if you have any questions or concerns If you have any questions or concerns please do not hesitate to contact me. The office is [phone]. This note is constructed using voice recognition software. While every effort has been made to ensure accuracy seam stay stitcher errors may have been included. Yours sincerely, JESENIA Padron-KAYCEE Coding Level of Care Code Est Pt Level 3 (13100) Diagnoses Bladder pain R39.89 Recurrent UTI N39.0 Interstitial cystitis (chronic) with hematuria N30.11 Sensation of pressure in bladder area R39.89 CPT Codes Post Residual Void - PVR CPT Code: 07637-Wzht Void Residual by ultrasound ([id number])
== END 2023-08-31 15:42 | disposition home or self-care (01) ==
PROVIDERS: PCP Hospitalist; Visit Provider Nurse Practitioner Family
DX: R39.89 Other symptoms and signs involving the genitourinary system (principal); N39.0 Urinary tract infection, site not specified; N30.11 Interstitial cystitis (chronic) with hematuria; Z13.9 Encounter for screening, unspecified
CPT/HCPCS: 99213

== ENCOUNTER → 2023-08-31 14:38 | Outpatient (BNVA) | payer OTHER, SELFPAY | PROVIDERS: PCP Hospitalist; Visit Provider Nurse Practitioner Family | DX: R39.89 Other symptoms and signs involving the genitourinary system (principal); N39.0 Urinary tract infection, site not specified; N30.11 Interstitial cystitis (chronic) with hematuria | CPT/HCPCS: 51798; 81003; 99212 ==

== ENCOUNTER 2024-03-20 11:51 | Outpatient (AMB) | payer OTHER, SELFPAY ==
--- NOTE | 2024-03-20 11:53 | A.OFFVIS_ITS ---
Intake Visit Reasons: 6m/PVR Intake Note: Patient is Present for Follow Up PVR Urology Medication: Vesicare Antibiotic Allergies: None Blood Thinners: None Last PVR:53ML Todays PVR: 0ml Parachute Rigger Required: No Accompanied by: Self / Same As Patient Allergies iodine Allergy (Severe, Verified 03/20/24 16:00) cardiac arrest Medication List - Last Reconciled 03/20/24 by Lucie Borrego [facility]- alprazolam 0.25 - 0.5 mg PO DAILY PRN atorvastatin 20 mg PO BEDTIME 90 days solifenacin 5 mg PO DAILY 30 days valacyclovir 500 mg PO DAILY venlafaxine ER 150 mg PO DAILY HPI Comments Details: Please is a very pleasant 64-year-old female patient of Dr. Zurita. She has a past medical history of interstitial cystitis, depression, hyperlipidemia, and anxiety. She presents to the office today for follow-up of her interstitial cystitis. Of note, patient underwent cystoscopy hydrodistention with Dr. Diaz 03/01. In discussion with the patient today she reports to be doing and feeling well. She reports utilizing VESIcare as needed when experiencing lower urinary tract symptoms and describes these episodes as infrequent. She had previously trialed low-dose Cialis for bladder stability ho wever felt this made her rosacea worse. She continues with interstitial cystitis diet. She discusses her longstanding history of interstitial cystitis and initial diagnosis in 1998. In office urinalysis results reviewed with the patient today. PVR 0ml's. She currently denies any bothersome urinary issues. She denies urinary urgency, urinary frequency, incontinence, nocturia, hematuria, foul smelling urine, changes to urinary stream, flank pain, fever, and or chills. She reports having trialed Pyridium and Vistaril in the past with no relief. She otherwise offers no other issues or concerns at this time. Previous notes: The patient has history of interstitial cystitis and underwent cystoscopy hydrodistention on 04/12/2022. The initial bladder capacity measured 650 mL and after bladder distention the bladder capacity was 900 ml. No glomerulations or Tomas ulcerations were visualized. The patient also has history of recurrent UTIs. She completed 12 week bladder instillation with significant improvement in her bladder symptoms. Imagin03/21/22 - CT KUB, kidneys were within normal limits question 2 mm stone seen in the bladder. (cystoscopy 04/12/22 no bladder stone) PFSH Medical History Sinusitis Bladder disease H/O nonmelanoma skin cancer Surgical History History of bladder surgery H/O: hysterectomy History of nasal surgery S/P AURA (total abdominal hysterectomy) History of bunionectomy Status post trigger finger release History of carpal tunnel release Family History Mother Pacemaker Social History Housing: House Patient Tobacco Use Status: Never used Tobacco e-Cigarette/Vaping Use: Never Used Second Hand Smoke Exposure: No service: No Current occupational status: employed Current occupation: Self employed Cognitive needs: No Hearing needs: No Vision needs: No Review of Systems Const Reports as per HPI Eyes Reports no additional complaints ENT Reports no additional complaints Card Reports as per HPI Resp Reports no additional complaints GI Reports no additional complaints Reports as per HPI Musc Reports no additional complaints Neuro Reports no additional complaints Psych Reports as per HPI Endo Reports no additional complaints Misael/Lymph Reports no additional complaints Aller/Immun Reports no additional complaints Physical Exam Const General: cooperative, healthy appearing, comfortable, no acute distress, well developed, alert and awake Orientation/consciousness: patient oriented x3 Limitations: no limitations HEENT Head: Yes normal to inspection, Yes normocephalic and Yes atraumatic Ears: hearing grossly normal bilaterally Eyes General: appearance normal, both eyes and all related structures Neck Neck: Yes normal visual inspection and Yes trachea midline Chest Chest palpation & inspection: normal inspection of the chest Resp Effort & Inspection: normal respiratory effort and able to speak in complete sentences Cardio Rate: regular rate GI Inspection: Yes normal to inspection General: Yes no CVA tenderness Back/Spine/Pelvis Back: no CVA tenderness Skin General skin exam: no rashes or lesions noted Neuro General: patient oriented x3 Extrem General: Yes normal to inspection Psych Appearance: grossly normal and well kempt Mental Status: mental status grossly normal Speech and movement: Normal speech and movement present and Clear speech present Affect: normal affect Attitude: cooperative Thought process: Normal thought process present Thought content: Normal thought content present Insight: Good insight present (Psych) Judgement: Good judgement present (Psych) Office Procedures Post Void Residual Post Residual Void Post Void Residual (PVR): 0 [id number] Void Residual by ultrasound Results AMB Urinalysis, Automated UA Leukoctes 0 Kristian/uL Last Edit by Carmella Espinosa A on 03/20/24 12:06 UA Nitrite Negative Last Edit by Carmella Espinosa, A on 03/20/24 12:06 UA Urobilinogen 0.2 mg/dL Last Edit by Carmella Espinosa A on 03/20/24 12:0 6 UA Protein 0 mg/dL Last Edit by Carmella Espinosa A on 03/20/24 12:06 UA pH 5.5 Last Edit by Carmella Espinosa, A on 03/20/24 12:06 UA Blood 0 Kp/uL Last Edit by Carmella Espinosa A on 03/20/24 12:06 UA Specific Floyd 1.015 Last Edit by Carmella Espinosa [facility] on 03/20/24 12: 06 UA Ketone Negative Last Edit by Carmella Espinosa, A on 03/20/24 12:06 UA Bilirubin 0 mg/dL Last Edit by Carmella Espinosa A on 03/20/24 12:06 UA Glucose 0 mg/dL Last Edit by Carmella Espinosa A on 03/20/24 12:06 Results Reviewed Results Reviewed: Laboratory Last Values Urine pH (Auto) 5.5 03/20/24 11:59 Specific Floyd (Auto) 1.015 03/20/24 11:59 Urine Protein (Auto) 0 mg/dL 03/20/24 11:59 Glucose (UA)(Auto) 0 mg/dL 03/20/24 11:59 Urine Ketones (Auto) Negative 03/20/24 11:59 Urine Blood (Auto) 0 Kp/uL 03/20/24 11:59 Urine Nitrite (Auto) Negative 03/20/24 11:59 Urine Bilirubin (Auto) 0 mg/dL 03/20/24 11:59 Urine Urobilinogen (Auto) 0.2 mg/dL 03/20/24 11:59 Leukocyte Esterase (Auto) 0 Kristian/uL 03/20/24 11:59 Assessment & Plan Assessment & Plan (1) Bladder pain: Code(s): R39.89 - Other symptoms and signs involving the genitourinary system Category: Medical (2) Recurrent UTI: Code(s): N39.0 - Urinary tract infection, site not specified Category: Medical (3) Interstitial cystitis (chronic) with hematuria: Code(s): N30.11 - Interstitial cystitis (chronic) with hematuria Category: Medical (4) Sensation of pressure in bladder area: Code(s): R39.89 - Other symptoms and signs involving the genitourinary system Category: Medical Plan In office urinalysis results reviewed with the patient today; as noted above. PVR 0ml's. Continue VESIcare 5 mg PRN. Discussed bladder triggers/irritants. Discussed, educated, encouraged on the importance of drinking plenty of water daily. She denies any bothersome urinary issues or concerns. She is happy with her current voiding parameters. Follow-up in 6 months with PVR; or sooner with any issues, concerns, and or questions. Orders: Orders AMB Post Void Residual by ultrasound Today N39.0 - Urinary tract infection, site not specified AMB Urinalysis Automated Today Z13.9 - Encounter for screening, unspecified Patient Instructions: The patient had an opportunity to ask questions regarding the treatment plan. All questions were answered. Physical exam, labs, and imaging were discussed and reviewed in detail. As well as risks, benefits, and discussion of treatment choices. No major barriers to understanding were identified. The patient expressed understanding and agreement with the above treatment plan. The patient was made aware they should contact our office by phone for worsening of their current condition, the appearance of new symptoms, or with any questions or concerns. Compliance is encouraged with any medications and follow up testing that is ordered. It is a privilege to be allowed the opportunity to participate in? your urological care.? Again, if you have any questions or concerns If you have any questions or concerns please do not hesitate to contact me. The office is [phone]. This note is constructed using voice recognition software. While every effort has been made to ensure accuracy steam box tender errors may have been included. Yours sincerely, VANITA Padron Coding Level of Care Code Est Pt Level 3 (44228) Complex EM visit Add On G2211 Diagnoses Bladder pain R39.89 Recurrent UTI N39.0 Interstitial cystitis (chronic) with hematuria N30.11 Sensation of pressure in bladder area R39.89 CPT Codes Post Residual Void - PVR CPT Code: 90803-Naxn Void Residual by ultrasound ([id number])
--- OUTSIDE RECORDS SUMMARY | 2024-03-20 13:42 | XMS_ITS | Clinical Summary ---
Author Organization [facility] Address [phone] [facility] [place] [address] Care Team Providers Care Top Tile Decorator Name Role Phone Jessica Moreno MD Unavailable Lily Zurita NP Primary Care Provider Allergies Active Allergy Reactions Criticality Noted Date Comments Iodinated Contrast Media Other (See Comments) High 03/01/2017 Cardiac arrest Pollen Extracts Itching Medium 05/11/2022 Itchy eyes mostly -uses eye gtts to alleviate Medications Medication Sig Dispensed Refills Start Date End Date Status valACYclovir (VALTREX) 500 MG tablet Take 500 mg by mouth as needed. Active loratadine (CLARITIN) 10 mg tablet Take 10 mg by mouth daily. Active venlafaxine (EFFEXOR-XR) 150 MG 24 hr capsule Take 150 mg by mouth daily. Active ALPRAZolam (XANAX) 0.5 MG tablet Take 0.5 mg by mouth daily as needed. Active acyclovir (ZOVIRAX) 5 % ointment APPLY TO THE AFFECTED AREA(S) BY TOPICAL ROUTE EVERY 3 HOURS 6 TIMES PER DAY FOR 7 DAYS 6 09/05/2017 Active doxepin (SINEQUAN) 10 MG capsule Take 1 capsule by mouth daily as needed. 08/11/2019 Active EPINEPHrine 0.3 mg/0.3 mL auto-injector INJECT 1 INJECTION INTO THE MUSCLE NEEDED FOR ANAPHYLAXIS 2 Device 04/28/2020 Active famotidine (PEPCID) 20 MG tablet Take 40 mg by mouth daily. 02/06/2018 Active albuterol 90 mcg/actuation inhalerIndications:M ild intermittent asthma without complication Inhale 1 puff into the lungs every 4 (four) hours as needed for wheezing. 18 g 1 07/01/2021 Active hydrOXYzine (VISTARIL) 25 MG capsule PLEASE SEE ATTACHED FOR DETAILED DIRECTIONS 05/04/2022 Active cetirizine (ZYRTEC) 10 mg capsule Take 10 mg by mouth. 07/15/2020 Active neomycin-polymyxin B-dexamethasone (MAXITROL) 3.5 mg/g-10,000 unit/g-0.1 % Oint as needed. Itchy eyes - seasonally 05/04/2022 Active nitrofurantoin (MACROBID) 100 MG capsule TAKE 1 CAP BY MOUTH EVERY 12 HOURS X 7 DAYS. MUST ADMINISTER WITH A MEAL/FOOD 05/04/2022 Active phenazopyridine (PYRIDIUM) 200 MG tablet Take 200 mg by mouth 3 (three) times a day. 04/12/2022 Active Active Problems Problem Noted Date Diagnosed Date Urticaria 06/22/2017 Assessment & Plan (06/22/2017 10:17 PM EDT): Discussed urticaria, nature of findings, triggers, and treatments. Continue prednisone. Discussed that though minor there may be persistent skin changes after steroid is completed. Continue benadryl topically prn. Discussed limited nature of labs in identifying the cause of onset. Reviewed stress, possible hospital exposures as potential triggers. Await cbc with diff. Reviewed continue antiallergy rx as well as hydroxyzine (takes for sleep only). Next f/u with derm in 1 month. If unresolved will pursue w/u. Needs referral to irrigation flume layer. Mild intermittent asthma without complication Assessment & Plan (05/22/2017 8:09 AM EDT): Albuterol r/f sent. Reviewed dosing, and please f/u if any persistent sx despite regular use. Pain and swelling of right knee 05/20/2017 Assessment & Plan (05/22/2017 8:09 AM EDT): Discussed that given cyclic/intermittent nature of knee pain and swelling, a trial of strengthening/stretching, OTC anti-inflammatory rx, and monitoring is acceptable. Pt will trial over the next 3 days and will f/u if continued/persistent sx. Order for XR of the right knee provided, will contact if proceeding with imaging next week. Please f/u if any new onset weakness, or if swelling not self- limited. Please f/u sooner if any concerns. 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 These could be unrelated processes. However, we discussed pursuing a gentle but thorough stretching regimen over the next 3 days as she trials RTC NSAIDs. She will f/u if no improvement. Stretches discussed, handout provided. Immunizations Name Administration Dates Next Due COVID-19 (Pre-11/28) Pfizer Vaccine, mRNA, PF 05/30/2020,05/09/2020 Hepatitis B Adult 09/07/2010,05/26/2010,05/01/19 11 Influenza Quadrivalent Prese rvative Free IM 10/19/2020,12/13/2019,12/07/2018,11/29,01/13/2015,11/21/2013 Influenza Trivalent Preserva tive Free IM 12/08/2015,12/11/2006 Pneumococcal polysaccharide PPSV23 08/21(Deferred: Other - schedule for another day) Td (adult) 5 Lf Tetanus Toxo id, PF, Adsorbed 02/04/2008 Tdap 04/30/2010 Zoster recombinant 10/23/2019,08/21/2019 Family History Medical History Relation Comments No Known Problems Brother Pacemaker Mother No Known Problems Son Relation Status Comments Brother Mother Alive Son Alive Social History Tobacco Use Types Packs/Day Years Used Date Smoking Tobacco: Never Smokeless Tobacco: Never Alcohol Use Standard Drinks/Week Comments No 0 (1 standard drink = 0.6 oz pur e alcohol) Child or Family Care Answer Date Record ed Do you have problems with on e of the following making it difficult for you to work, study, or receive health care? No 04/22/2021 Education Answer Date Recorded Are you interested in more education? Not on dominic e 05/02/2023 Are you concerned about learning? Not on file 05/02/2023 No 05/02/2023 No 05/02/2023 Food Answer Date Recorded Within the past 6 months we worried whether our food would run out before we got money to buy more. Never True 04/22/2021 Within the past 6 months the food we bought just didn't last and we didn't have enough money to get more. Never True Residential Stability Answer Date Recor ded What is your housing situation today? I have dwaine sing 04/22/2021 How many times have you move d in the past 12 months? Zero (I did not move) 04/22/2021 06 Are you worried that in t he next 2 months, you may not have your own housing to live in? No 04/22/2021 Paying for Meds Answer Date Recorded Do you have trouble paying for medicines? No 04/22/2021 Paying Utility Bills Answer Date Record ed Do you have trouble paying your heating or elect ricity bill? No 04/22/2021 Transportation Answer Date Recorded Has the lack of transportati on kept you from medical appointments or from getting medications? No 04/19/2021 Unemployment Answer Date Recorded Are you currently unemployed or working on a part-time or temporary basis, and looking for work? No 04/22/2021 Digital Access Answer Date Recorded No 07/02/2022 No 07/02/2022 No 07/02/2022 Reliable internet access at home? Not on file 07/02/2022 Device with a working camera? Not on file Sex and Gender Information Value Date Recorded Sex Assigned at Female 08/28/2020 3:34 PM EDT Gender Identity Female 08/28/2020 3:34 PM EDT Sexual Orientation Straight 08/28/2020 3: 34 PM EDT Last Filed Vital Signs Vital Sign Reading Time Taken Comments Blood Pressure 118/70 04/22/2021 1:18 PM EDT Pulse 85 04/22/2021 1:18 PM EDT Temperature 36.4 ??C (97.5 ??F) 02/18/2021 8:00 PM ES T Respiratory Rate 16 04/22/2021 1:18 PM EDT Oxygen Saturation 98% 04/22/2021 1:18 PM EDT Inhaled Oxygen Concentration - - Weight 69.2 kg (152 lb 9.6 oz) 04/22/2021 1:18 P M EDT Height 152.4 cm (5') 04/22/2021 1:18 PM EDT Body Mass Index 29.8 04/22/2021 1:18 PM EDT Plan of Treatment Health Maintenance Due Date Last Done Comments HEPATITIS B SCREENING 1978 HEPATITIS C SCREENING 1978 HIV ONE-TIME SCREENING (18-65 YEARS) 1978 PNEUMOCOCCAL VACCINES (50+ years) (1 of 2 - PCV) 1979 COLOGUARD 2005 FIT TEST 2005 FOBT 2005 SIGMOIDOSCOPY 2005 VIRTUAL COLONOSCOPY 2005 RSV VACCINE (1 - Risk 60-74 years 1-dose series) 2020 Adult Td,Tdap Booster 04/30/2020 04/30/2010, 008 DEPRESSION SCREENING 04/22/2022 04/22/2021 MAMMOGRAM 03/16/2023 03/16/2021, 11/06, 09/01/2016 SCREENING FOR DIABETES 05/30/2023 05/29/2020 INFLUENZA VACCINE (#1) 2023 , 12/13/2019, 12/07/2018, Additional history exists COVID-19 VACCINE ( season) 2023 12/24/2020, 05/30/2020, 05/09/2020 LIPID PANEL 05/29/2025 05/29/2020, 09/07, 01/13/2015, Additional history exists COLONOSCOPY 11/14/2026 11/14/2016 COLORECTAL CANCER SCREENING 11/14/2026 HEPATITIS B VACCINES Completed 09/07/2010, 05/26/2010, 04/30/2010 ZOSTER VACCINES Completed 10/23/2019, 08/21/2019 SMOKING STATUS SCREENING (Once After 26 Yrs) Completed 05/11/2022 HEPATITIS A VACCINES Aged Out No long er eligible based on patient's age to complete this topic HIB VACCINES Aged Out No longer eligi ble based on patient's age to complete this topic MENINGOCOCCAL VACCINES (ACWY) Aged Out No longer eligible based on patient's age to complete this topic Medical Devices Not on file Procedures Procedure Name Priority Date/Time Associated Diagnosis Comments MAMMOGRAPHY Routine 03/16/2021 LIPID PANEL Routine 05/29/2020 11:10 AM EDT Mixed hyperlipidemia from Last 3 Months or Most Recently Relevant to Health Maintenance Results * MAMMOGRAPHY FOR RESULT ENTRY ONLY (03/16/2021) Historical Provider MD MICHAEL Mariee * (ABNORMAL) Lipid panel (05/29/2020 11:10 AM EDT) HDL 66 mg/dL [facility] Comment: ? Interpretation <40 mg/dL: Low HDL cholesterol (major risk factor for CHD) Greater than or equal to 60 mg/dL: High HDL cholesterol ( negative risk factor for CHD) HDL - cholesterol is affected by a number of factors, e.g. smoking, excerise, hormones, sex and age. CHOLESTEROL 209 0 - 240 mg/dL [facility] TRIGLYCERIDES 97 30 - 160 mg/dL [facility] LDL 124 50 - 129 mg/dL [facility] Comment: LDL levels in terms of risk for coronary heart disease: <100 mg/dL: Optimal 100-129 mg/dL: Near or above optimal 130-159 mg/dL: Borderline high 160-189 mg/dL: High >190 mg/dL: Very High CARDIAC RISK RATIO 3.2(L) 3.3 - 4.4 C [facility] Blood 05/29/2020 11:1 0 AM EDT 05/29/2020 11:13 AM EDT Alicia Reed [facility] B[facility]OD [facility] [address] [place] [address] from Last 3 Months or Most Recently Relevant to Health Maintenance Care Teams Top Tile Decorator Relationship Specialty Start Date End Date Lily Zurita NP [address] [address] PCP - General Nurse Practitioner 05/11/22 Jessica Moreno MD [address] [place] [id number] Obstetrics 08/21/19 Additional Source Comments The information contained in this document represents components of the legal health record. It is not the complete legal health record.[facility]
== END 2024-03-20 12:37 | disposition home or self-care (01) ==
PROVIDERS: PCP Hospitalist; Visit Provider Nurse Practitioner Family
DX: R39.89 Other symptoms and signs involving the genitourinary system (principal); N39.0 Urinary tract infection, site not specified; N30.11 Interstitial cystitis (chronic) with hematuria; Z13.9 Encounter for screening, unspecified
CPT/HCPCS: 99213; G2211

== ENCOUNTER → 2024-03-20 11:51 | Outpatient (BNVA) | payer OTHER, SELFPAY | PROVIDERS: PCP Hospitalist; Visit Provider Nurse Practitioner Family | DX: R74.01 Elevation of levels of liver transaminase levels (principal); E78.00 Pure hypercholesterolemia, unspecified; F41.8 Other specified anxiety disorders; F30.8 Other manic episodes; R39.89 Other symptoms and signs involving the genitourinary system; N30.11 Interstitial cystitis (chronic) with hematuria | CPT/HCPCS: 51798; 81003; 96127; 99212 ==

== ENCOUNTER 2024-03-20 15:42 | Outpatient (AMB) | payer OTHER, SELFPAY ==
--- NOTE | 2024-03-20 15:58 | A.OFFPC_ITS ---
Vital Signs 03/20/24 16:08 Height 5 ft Weight 146 lb 2 oz BMI 28.5 BP 120/76 Blood Pressure Location Rt brachial Position Sitting Respiration 14 Pulse 78 Pulse Source Pulse Oximeter Temp 98.0 F Temp Source Oral Pulse Oximetry (%) 97 Oxygen Delivery Method Room Air Intake Visit Reasons: 6M follow up Intake Note: re-establish care Allergies iodine Allergy (Severe, Verified 03/20/24 16:00) cardiac arrest Tobacco use date assessed: 05/19/22 Dental Screening Dental Screen Date: 03/17/23 HPI 6M follow up HPI Details 64 y/o female presents to f/u chronic co nditions. Had mildly elevated liver enzymes, lipids. She had wanted to decrease artovastatin from 40mg to 20mg daily. Most recent labs drawn 05/04/23. Triglycerides 94. TC 175. LDL 94. HDL 63. AST 27. ALT elevated at 39. Anxiety with depression and pt notes psychiatrist recently retired. Pt notes ongoing concerns about her weight. HPI Comments History of Present Illness Details Documentation assistance for Justin Taylor MD, was provided by Jean Carlos Smith,? Automotive Parts Salesperson on 03/20/2024 at 4:49 PM EST. I, Dr. Taylor, have read, observed, and verified documentation. PFSH Medical History Sinusitis Bladder disease H/O nonmelanoma skin cancer Surgical History History of bladder surgery H/O: hysterectomy History of nasal surgery S/P AURA (total abdominal hysterectomy) History of bunionectomy Status post trigger finger release History of carpal tunnel release Family History Mother Pacemaker Social History Housing: House Patient Tobacco Use Status: Never used Tobacco e-Cigarette/Vaping Use: Never Used Second Hand Smoke Exposure: No service: No Current occupational status: employed Current occupation: Self employed Cognitive needs: No Hearing needs: No Vision needs: No Questionnaire PHQ-9 Over the last 2 weeks, how often have you been bothered by any of the following problems? 1. Little interest or pleasure in doing things: not at all 2. Feeling down, depressed, or hopeless: not at all 3. Trouble falling or staying asleep, or sleeping too much: not at all 4. Feeling tired or having little energy: not at all 5. Poor appetite or overeating: not at all 6. Feeling bad about yourself - or that you are a failure or have let yourself or your family down: not at all 7. Trouble concentrating on things, such as reading the newspaper or watching television: not at all 8. Moving or speaking so slowly that other people could have noticed. Or the opposite - being so fidgety or restless that you have been moving around a lot more than usual: not at all 9. Thoughts that you would be better off or of hurting yourself in some way: not at all Total score: 0 Depression Screening Interpretation: Negative Depression Screening Done: Yes 83582 - PHQ-9 Billing: Yes Source: Developed by Drs. Salo Stratton, Marisa Lopez, Dami Jerry and colleagues, with an educational nickie from [employer]. Thrive Questionnaire Date Thrive assessed: 03/14/24 I am a: Patient What is your living situation today?: I have a steady place to live Within the past 12 months, did the food you bought not last and you didn't have the money to get more?: Never true Within the past 12 months, did you worry whether your food would run out before you got money to buy more?: Never true Do you have trouble paying for medicines?: No Do you have trouble getting transportation to medical appointments?: No Do you have trouble paying your heating and electricity bill?: No Do you have trouble taking care of your child, family member or friend?: No Do you have trouble with day-to-day activities such as bathing, preparing meals, shopping, managing finances, etc.?: No Are you currently unemployed and looking for a job?: No Are you interested in more education?: No Please select the resources that you would like help with: None Currently or been in a relationship where the following occur: No concerns reported THRIVE Score: 0 AUDIT C Alcohol Use Questionnaire (AUDIT-C) 1. How often do you have a drink containing alcohol?: Never 2. How many drinks containing alcohol do you have on a typical day when you are drinking?: 1 or 2 3. How often do you have six or more drinks on one occasion?: Never Total Score: 0 RAO-7 AMB Questionnaire RAO-7 Date RAO - 7 assessed: 03/17/23 Feeling nervous, anxious, or on edge: 0 = Not at all Not being able to stop or control worryin = Not at all Worrying too much about different things: 0 = Not at all Trouble relaxin = Not at all Being so restless that it is hard to sit still: 0 = Not at all Becoming easily annoyed or irritable: 0 = Not at all Feeling afraid as if something awful might happen: 0 = Not at all Total RAO-7 score (0-4 normal; 5-9 mild; 10-14 moderate; 15-21 severe): 0 Source: Developed by Drs. Salo Stratton, Marisa Lopez, Dami Jerry and colleagues, with an educational nickie from [employer]. Review of Systems Const Denies chills, Denies fatigue, Denies fever(s), Denies headache(s) and Denies weakness ENT Denies dizziness and Denies headache(s) Card Denies dyspnea Resp Denies cough, Denies dyspnea, Denies wheezing and Denies other (shortness of breath) Musc Denies numbness and Denies tingling Neuro Denies dizziness, Denies headache(s), Denies numbness, Denies tingling and Denies weakness Psych Denies anxiety and Denies depression Endo Denies fatigue Aller/Immun Denies wheezing Physical exam (Primary Care) Vital Signs: Last Vital Signs Temp 98.0 F 03/20/24 16:08 Pulse 78 03/20/24 16:08 Resp 14 03/20/24 16:08 BP 120/76 03/20/24 16:08 Pulse Ox 97 03/20/24 16:08 Oxygen Delivery Method Room Air 03/20/24 16:08 BMI result Body Mass Index 28.5 Tobacco/Smoking Status: Tobacco use Status Tobacco use date assessed 05/19/22 03/20/24 15:59 Patient Tobacco Use Status Never used Tobacco 03/20/24 15:59 e-Cigarette/Vaping Use Never Used 03/20/24 15:59 PHQ-9: PHQ-9 Score PHQ-9: Total score 0 03/20/24 16:31 Depression Screening Interpretation: Negative Thrive Assessment: Date of Thrive Assessment Date Thrive assessed 03/14/24 03/20/24 15:59 Currently or been in a relationship where the following occur: No concerns reported Const General: well developed; No acute distress Nutritional Appearance: well nourished Orientation/consciousness: patient oriented x3 HENMT Head: Yes normocephalic and Yes atraumatic Eyes General: appearance normal, both eyes and all related structures Pupils: Equal, round and reactive pupils present EOM: EOMs intact bilaterally Resp Effort & Inspection: normal respiratory effort Auscultation: clear to auscultation bilaterally Cardio Rate: regular rate Rhythm: regular rhythm Heart sounds: S1 normal heart sound present, S2 normal heart sound present, no gallops, no murmurs and no rubs Neuro General: patient oriented x3 and gait normal Cranial nerves: Yes Equal, round and reactive pupils present Psych Affect: normal affect Results AMB Urinalysis, Automated UA Leukoctes 0 Kristian/uL Last Edit by NALINI Bertrand on 03/20/24 12:06 UA Nitrite Negative Last Edit by NALINI Bertrand on 03/20/24 12:06 UA Urobilinogen 0.2 mg/dL Last Edit by NALINI Bertrand on 03/20/24 12:0 6 UA Protein 0 mg/dL Last Edit by NALINI Bertrand on 03/20/24 12:06 UA pH 5.5 Last Edit by NALINI Bertrand on 03/20/24 12:06 UA Blood 0 Kp/uL Last Edit by NALINI Bertrand on 03/20/24 12:06 UA Specific [place] 1.015 Last Edit by NALINI Bertrand on 03/20/24 12: 06 UA Ketone Negative Last Edit by NALINI Bertrand on 03/20/24 12:06 UA Bilirubin 0 mg/dL Last Edit by NALINI Bertrand on 03/20/24 12:06 UA Glucose 0 mg/dL Last Edit by NALINI Bertrand on 03/20/24 12:06 Coding Level of Care Code Est Pt Level 4 (64375) Diagnoses Elevated ALT measurement R74.01 High cholesterol E78.00 Anxiety with depression F41.8 BMI 28.0-28.9,adult Z68.28 Hypomania F30.8 Additional Codes PHQ-9 - 97875 - PHQ-9 Billing: Yes ([id number]) Assessment & Plan Assessment & Plan (1) Elevated ALT measurement: Code(s): R74.01 - Elevation of levels of liver transaminase levels Category: Medical Plan: History?of?mildly?elevated?ALT Recheck?labs (2) High cholesterol: Code(s): E78.00 - Pure hypercholesterolemia, unspecified Category: Medical Plan: Patient?is?taking?atorvastatin?and?LDL?cholesterol?was?at?goal?at?last?visit Rechecking?this Continue?atorvastatin (3) Anxiety with depression: Code(s): F41.8 - Other specified anxiety disorders Category: Medical Plan: Patient?is?stable on?venlafaxine?and?alprazolam. Would?avoid?SSRI?medications?as?her?psychiatrist?suspects?hypomania?or?bipolar?d isorder Her?psychiatrist?is?retiring.??I?have?asked?patient?to?have?her?forward?a?note I?assume?management?of?current?medications We?did?discuss?that?I?do?not?scribe?greater?than?30?day?prescriptions?for?contro lled?substances?no?refills?but?will?continue?to?work?to?make?sure?s he?has?medication?she?needs?on-time (4) BMI 28.0-28.9,adult: Code(s): Z68.28 - Body mass index [BMI] 28.0-28.9, adult Category: Medical Plan: Patient?says?she?is?frustrated?with?weight?and?has?difficulty?with?weight?loss Had?a?long?conversation?with?her?regarding?diet?and?exercise She?is?also?considering [employer]?coaching?and?also?weight?watchers?and?I?encouraged?these We?can?to?monitor?her?weight?and?her?lab?work. (5) Hypomania: Code(s): F30.8 - Other manic episodes Category: Medical Plan: As?above, Stable?on?her?medications?and?not?currently?hypomanic?but?may?bipolar?disorder Awaiting?psychiatrist?note Orders: Orders Comprehensive [place]. Panel Fast Today Z00.00 - Encounter for general adult medical examination without abnormal findings Lipid Panel Today Z00.00 - Encounter for general adult medical examination without abnormal findings Complete Blood Count Auto Diff Today Z00.00 - Encounter for general adult medical examination without abnormal findings Microalbumin, Random (w Creat) Today I10 - Essential (primary) hypertension TSH reflex Free T4 Today Z00.00 - Encounter for general adult medical examination without abnormal findings UA and rflx microscopic Today Z00.00 - Encounter for general adult medical examination without abnormal findings
[2024-03-20 16:08] VITALS: BP 120/76; PULSE 78; RESP 14; TEMP 36.7; O2SAT 97; BMI 28.5
--- OUTSIDE RECORDS SUMMARY | 2024-03-20 16:28 | XMS_ITS | Clinical Summary ---
Author Organization [facility] Address [phone] [facility] [place] [address] Care Team Providers Care Taffy Candy Maker Name Role Phone Jessica Moreno MD Unavailable [phone] Lily Zurita NP Primary Care Provider Allergies [...] unresolved will pursue w/u. 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 Mild intermittent asthma without complication Assessment & [...] (05/29/2020 11:10 AM EDT) HDL 66 mg/dL [facility] Comment: ? Interpretation <40 mg/dL: Low HDL cholesterol (major risk factor for CHD) Greater than or equal to 60 mg/dL: High HDL cholesterol ( negative risk factor for CHD) HDL - cholesterol is affected by a number of factors, e.g. smoking, excerise, hormones, sex and age. CHOLESTEROL 209 0 - 240 mg/dL [facility] TRIGLYCERIDES 97 30 - 160 mg/dL [facility] LDL 124 50 - 129 mg/dL [facility] Comment: LDL levels in terms of risk for coronary heart disease: <100 mg/dL: Optimal 100-129 mg/dL: Near or above optimal 130-159 mg/dL: Borderline high 160-189 mg/dL: High >190 mg/dL: Very High CARDIAC RISK RATIO 3.2(L) 3.3 - 4.4 C [facility] Blood 05/29/2020 11:1 0 AM EDT 05/29/2020 11:13 AM EDT Alicia Reed [facility] BLOOD ORDE VALERIY [facility] [address] [place] [address] from Last 3 Months or Most Recently Relevant to Health Maintenance Care Teams Taffy Candy Maker Relationship Specialty Start Date End Date Lily Zurita NP [address] [address] PCP - General Nurse Practitioner 05/11/22 Jessica Moreno MD [address] [place] [id number] Obstetrics 08/21/19 Additional Source Comments The information contained in this document represents components of the legal health record. It is not the complete legal health record.[facility]
== END 2024-03-20 16:52 | disposition home or self-care (01) ==
PROVIDERS: PCP Hospitalist; Visit Provider Family Medicine
DX: R74.01 Elevation of levels of liver transaminase levels (principal); F30.8 Other manic episodes; E78.00 Pure hypercholesterolemia, unspecified; F41.8 Other specified anxiety disorders; Z68.28 Body mass index [BMI] 28.0-28.9, adult

== ENCOUNTER 2024-03-22 11:40 | Outpatient (REF) | payer OTHER, SELFPAY ==
[2024-03-22 13:12] LABS: MANUAL DIFF FLAG NO
[2024-03-22 13:24] LABS: Basophils Percent Auto 0.7 % (0-2); Eosinophils Absolute Auto 0.1 X10*3/uL (0.0-0.4); Eosinophils Percent Auto 3.1 % (0-4); Hematocrit 42.5 % (37.0-47.0); Hemoglobin 14.2 g/dl (12.0-16.0); Imm Gran Abs Auto 0.01 X10*3/uL (0.00-0.03); Imm Gran Pct Auto 0.2 % (0.0-0.4); Lymphocytes Absolute Auto 1.6 X10*3/uL (1.2-4.9); Lymphocytes Percent Auto 39.5 % (20-40); Mean Corpuscular HGB Conc 33.4 g/dl (31.0-35.0); Mean Corpuscular Hemoglobin 31.6 pg (27.0-33.0); Mean Corpuscular Volume 94.4 fL (80.0-98.0); Mean Platelet Volume 9.1 fL (9.4-12.3); Monocytes Absolute Auto 0.4 X10*3/uL (0.1-1.2); Monocytes Percent Auto 9.2 % (2-11); Neutrophils Percent Auto 47.3 % (45-73); Platelet Count 244 X10*3/uL (160-400); Red Cell Distribution Width 11.7 % (11.0-16.0); White Blood Count 4.2 X10*3/uL (4.8-10.8)
[2024-03-22 13:40] LABS: Color Urine Yellow; Glucose Urine UA Negative (Negative); Leukocyte Esterase Urine Negative (Negative); Nitrite Urine Negative (Negative); PH 5.5 (5.0-9.0); Specific Gravity - Urine 1.015 (1.005-1.025); Urine Blood Negative (Negative); Urine Ketones Negative (Negative); Urine Protein Negative (Neg-Trace)
[2024-03-22 13:43] LABS: Appearance Urine Clear
[2024-03-22 13:46] LABS: Creatinine Urine 101.41 mg/dL; Microalbum/Creatinine Ratio Ur 5.9 ug/mg cr (<30)
[2024-03-22 13:49] LABS: Alanine Aminotransferase 35 U/L (0-31); Albumin Level 4.4 g/dL (3.5-5.0); Alkaline Phosphatase 104 U/L (39-117); Anion Gap 10 (12-20); Aspartate Amino Transferase 30 U/L (5-31); Bilirubin Total 0.6 mg/dL (0.0-1.0); Blood Urea Nitrogen 12 mg/dL (9-16); Calcium 9.7 mg/dL (8.4-10.2); Carbon Dioxide 26 mmol/L (22-29); Chloride 107 mmol/L (96-108); Cholesterol 189 mg/dL (<200); Estimated Glomerular Filt Rate > 60; Glucose Fasting 96 mg/dL (60-99); HDL Cholesterol 63 mg/dL (>40); LDL Cholesterol Calculated 104 mg/dL (<100); Potassium 4.1 mmol/L (3.3-5.1); Sodium 139 mmol/L (135-145); Total Protein 7.7 g/dL (6.5-8.0); Triglycerides 111 mg/dL (<150)
[2024-03-22 14:04] LABS: TSH reflex Free T4 1.28 uIU/mL (0.32-4.0)
== END 2024-03-22 11:41 | disposition home or self-care (01) ==
LOC: HO.HMGCLDS 11:40
PROVIDERS: PCP Family Medicine; Visit Provider Family Medicine
DX: Z00.00 Encounter for general adult medical examination without abnormal findings (principal); I10 Essential (primary) hypertension
CPT/HCPCS: 36415; 80053; 80061; 81003; 82043; 82570; 84443; 85025

== ENCOUNTER 2024-04-02 14:14 | Outpatient (AMB) | payer OTHER, SELFPAY ==
--- NOTE | 2024-04-02 15:21 | MHC.OFFWIV ---
Intake Vital Signs 04/02/24 15:23 Height 5 ft Weight 148 lb BMI 28.9 BP 118/76 Blood Pressure Location Lt brachial Position Sitting Pulse 78 Pulse Source Pulse Oximeter Pulse Oximetry (%) 95 Oxygen Delivery Method Room Air Intake Visit Reasons: EP Hives Intake Note: Patient here for hives that have been present for about 5 days. Patient Tobacco Use Status: Never used Tobacco Allergies iodine Allergy (Severe, Verified 04/02/24 15:21) cardiac arrest Do you need a note to return to daycare/school/sports/work: No HPI HPI Comments History of Present Illness Details This is a 64-year-old female with a past medical history of hyperlipidemia, chronic urticaria and anxiety presenting for evaluation of urticaria that she has had for the past 5 days. She describes mild pruritus only. Patient states that she has had lesions on her face and anterior chest wall that have not resolved by taking both Zyrtec and Pepcid for the past 4 days. Patient denies having any new exposures, fevers, chills or spreading of the lesions. [facility] Medical History Sinusitis Bladder disease H/O nonmelanoma skin cancer Surgical History History of bladder surgery H/O: hysterectomy History of nasal surgery S/P AURA (total abdominal hysterectomy) History of bunionectomy Status post trigger finger release History of carpal tunnel release Family History Mother Pacemaker Social History Housing: House Patient Tobacco Use Status: Never used Tobacco e-Cigarette/Vaping Use: Never Used Second Hand Smoke Exposure: No service: No Current occupational status: employed Current occupation: Self employed Cognitive needs: No Hearing needs: No Vision needs: No Review of Systems Const All systems reviewed & are unremarkable except as noted in HPI and below Eyes Reports as per HPI ENT Reports no additional complaints Card Reports as per HPI Resp Reports as per HPI GI Reports as per HPI Reports no additional complaints Musc Reports no additional complaints Skin/Breast Reports lesions (face, anterior chest wall) Neuro Reports no additional complaints Psych Reports no additional complaints Endo Reports no additional complaints Misael/Lymph Reports no additional complaints Aller/Immun Reports no additional complaints Physical Exam Vital Signs: Last Vital Signs Pulse 78 04/02/24 15:23 BP 118/76 04/02/24 15:23 Pulse Ox 95 04/02/24 15:23 Oxygen Delivery Method Room Air 04/02/24 15:23 Const General: cooperative, healthy appearing, comfortable, no acute distress, well developed, alert and awake; No acute distress Nutritional Appearance: average body habitus Orientation/consciousness: patient oriented x3 Limitations: no limitations Skin Other: erythematous macules noted across face and anterior upper chest wall; no evidence of a secondary cellulitis General skin exam: other (Urticaria on face and upper anterior chest wall, no evidence of excoriation) Neuro General: patient oriented x3 Psych Appearance: grossly normal Mental Status: mental status grossly normal Thought content: Normal thought content present Insight: Good insight present (Psych) Judgement: Good judgement present (Psych) Assessment & Plan Assessment & Plan (1) Urticaria: Comment: Patient has a history of chronic urticaria which is usually treated effectively with Zyrtec/Pepcid. Patient will be discharged home with a tapering dose of prednisone. Code(s): L50.9 - Urticaria, unspecified Plan: Prednisone 10 mg taper as directed. Follow up with technician helper instrument as needed. Medications: New prednisone 4 tabs x 3 days; 3 tabs x 3 days; 2 tabs x 3 days; 1 tab x 3 days 10 mg PO DIRECTED 30 tabs 0RF Coding Level of Care Code Est Pt Level 3 (71353) Diagnoses Urticaria L50.9 Time Spent (min) 20
[2024-04-02 15:23] VITALS: BP 118/76; PULSE 78; O2SAT 95; BMI 28.9
--- OUTSIDE RECORDS SUMMARY | 2024-04-02 17:49 | XMS_ITS | Clinical Summary ---
Author Organization [facility] Address [phone] [facility] [place] [place] [address] Care Team Providers Care Harvester Operator Name Role Phone Jessica Moreno MD Unavailable [phone] Lily Zurita NP Primary Care Provider Allergies [...] unresolved will pursue w/u. Needs referral to mainframe developer. Mild intermittent asthma without complication Assessment & [...] (05/29/2020 11:10 AM EDT) HDL 66 mg/dL [facility] Comment: ? Interpretation <40 mg/dL: Low HDL cholesterol (major risk factor for CHD) Greater than or equal to 60 mg/dL: High HDL cholesterol ( negative risk factor for CHD) HDL - cholesterol is affected by a number of factors, e.g. smoking, excerise, hormones, sex and age. CHOLESTEROL 209 0 - 240 mg/dL [facility] TRIGLYCERIDES 97 30 - 160 mg/dL [facility] LDL 124 50 - 129 mg/dL [facility] Comment: LDL levels in terms of risk for coronary heart disease: <100 mg/dL: Optimal 100-129 mg/dL: Near or above optimal 130-159 mg/dL: Borderline high 160-189 mg/dL: High >190 mg/dL: Very High CARDIAC RISK RATIO 3.2(L) 3.3 - 4.4 C [facility] Blood 05/29/2020 11:1 0 AM EDT 05/29/2020 11:13 AM EDT Alicia Reed [facility] BLOOD ORDE VALERIY [facility] [address] [place] [address] from Last 3 Months or Most Recently Relevant to Health Maintenance Care Teams Harvester Operator Relationship Specialty Start Date End Date Lily Zurita NP [address] [address] PCP - General Nurse Practitioner 05/11/22 Jessica Moreno MD [address] [place] [id number] Obstetrics 08/21/19 Additional Source Comments The information contained in this document represents components of the legal health record. It is not the complete legal health record.[facility]
== END 2024-04-02 16:03 | disposition home or self-care (01) ==
PROVIDERS: PCP Family Medicine; Visit Provider Physician Assistant
DX: L50.9 Urticaria, unspecified (principal)

== ENCOUNTER → 2024-04-02 14:14 | Outpatient (BNVA) | payer OTHER, SELFPAY | PROVIDERS: PCP Family Medicine | DX: L50.9 Urticaria, unspecified (principal) | CPT/HCPCS: 99212 ==

== ENCOUNTER 2024-07-24 13:12 | Outpatient (REF) | payer OTHER, SELFPAY ==
--- NOTE | ~2024-07-24 | MM_ITS ---
EXAMINATION: MM SCREENING DIGITAL BREAST TOMOSYNTHESIS, BILATERAL CLINICAL INFORMATION: Screening. Asymptomatic. COMPARISON: Mammography: Comparison is made with available priors TECHNIQUE: Digital breast mammography with tomosynthesis is performed in both the craniocaudal and mediolateral oblique views along with computer-aided detection (CAD). FINDINGS: The breasts are heterogeneously dense, which may obscure small masses (ACR BI-RADS breast composition Category c). There are no significant masses, abnormal calcifications, or other abnormalities. MM/MM tomosynthesis screening BI IMPRESSION: No mammographic evidence of malignancy. ASSESSMENT: BI-RADS BI-RADS 1 - Negative RECOMMENDATION: Routine annual mammography screening. 1 year F/U This examination should not preclude the clinical evaluation of a suspicious palpable abnormality. This patient's information was entered into a reminder system with a target due date for their next mammogram. Electronically signed by: Isabella Hammond DO 07/29/2024 07:26 PM EDT
--- OUTSIDE RECORDS SUMMARY | 2024-07-24 15:04 | XMS_ITS | Patient Health Record ---
Author Organization [facility] Address [address] [place] [address] Care Team Providers Care Gluing Machine Operator Electronic Name Role Phone Lorie Augustin MD Primary Care Provider Unavailab frances Jennifer Morris Unavailable [phone] Allergies Allergen (clinical drug ingredient) Drug/Non Drug Allergy documented on EMR Reaction Allergy Type Onset Date Status Iodine irregular heart beat Drug Allergy Active Reason For Referral No Information Medications Medication SIG (Take, Route, Fr equency, Duration) Notes Start Date End Date Status Effexor XR Active ZyrTEC Allergy Activ e Valtrex Active Problems No Known Problems Plan Of Treatment Pending Test Test Name Order Date [id number] Destruction, -14 10/08/2010 [id number]-Opel Destruction, -14 12/11/2010 [id number]- Debride <25 sq cm 12/11/2010 20094- Debride <25 sq cm 10/08/2010 Insurance Providers Payer Name Payer Address Payer Phone Subscriber Number Group Number Insured Name Patient Relationship to Insured Coverage Start Date Coverage End Date [facility] [employer] [address] [place] [address] [id number] Lorie Rawls Self - patient is the insured Medical (General) History Medical History History ICD Code transfusions scarlet fever rheumatoid arthritis Surgical History Surgery Date(Month/Year) hysterectomy 1998 foot surgery 2010
== END 2024-07-24 13:13 | disposition home or self-care (01) ==
LOC: HO.MAMMO 13:12
PROVIDERS: PCP Family Medicine; Visit Provider Family Medicine
DX: Z12.31 Encounter for screening mammogram for malignant neoplasm of breast (principal)
CPT/HCPCS: 77063; 77067

== ENCOUNTER → 2024-07-24 13:15 | Outpatient (BNV) | payer OTHER, SELFPAY | PROVIDERS: PCP Family Medicine; Visit Provider Internal Medicine | DX: Z12.31 Encounter for screening mammogram for malignant neoplasm of breast (principal) | CPT/HCPCS: 77063; 77067 ==

== ENCOUNTER 2024-07-26 11:27 | Outpatient (AMB) | payer OTHER, SELFPAY ==
--- NOTE | 2024-07-26 11:35 | MHC.PC.OV ---
Vital Signs 07/26/24 11:42 Height 5 ft Weight 149 lb BMI 29.1 BP 120/72 Blood Pressure Location Rt brachial Position Sitting Respiration 12 Pulse 81 Pulse Source Pulse Oximeter Temp 98.3 F Temp Source Oral Pulse Oximetry (%) 97 Oxygen Delivery Method Room Air Intake Visit Reasons: f/u anxiety with depression, labs Intake Note: patient is here to follow up on anxiety and depression Day Care Director Required: No Allergies iodine Allergy (Severe, Verified 07/26/24 11:41) cardiac arrest Tobacco use date assessed: 05/19/22 Dental Screening Dental Screen Date: 03/17/23 HPI f/u anxiety with depression, labs HPI Details 64 y/o female presents to f/u anxiety/depression, labs. She is on venlafaxine 150mg, alprazolam. PHQ-9 2, RAO-7 8 today. Pt notes she feels steady/stable on her medication regimen. Labs drawn 03/22/24. Reviewed labs with pt. Elevated ALT of 35. Triglycerides 111. TC 189. LDL 104. HDL 63. She is on artovastatin 20mg. TSH 1.28 uIU/mL. HPI Comments History of Present Illness Details Documentation assistance for Justin Taylor MD, was provided by Jean Carlos Smith,? Slot Ambassador on 07/26/2024 at 12:07 PM EST. I, Dr. Taylor, have read, observed, and verified documentation. ?? PFSH Medical History Sinusitis Bladder disease H/O nonmelanoma skin cancer Surgical History History of bladder surgery H/O: hysterectomy History of nasal surgery S/P AURA (total abdominal hysterectomy) History of bunionectomy Status post trigger finger release History of carpal tunnel release Family History Mother Pacemaker Social History Housing: House Patient Tobacco Use Status: Never used Tobacco e-Cigarette/Vaping Use: Never Used Second Hand Smoke Exposure: No service: No Current occupational status: employed Current occupation: Self employed Cognitive needs: No Hearing needs: No Vision needs: No Questionnaire PHQ-9 Over the last 2 weeks, how often have you been bothered by any of the following problems? 1. Little interest or pleasure in doing things: not at all 2. Feeling down, depressed, or hopeless: not at all 3. Trouble falling or staying asleep, or sleeping too much: more than half the days 4. Feeling tired or having little energy: not at all 5. Poor appetite or overeating: not at all 6. Feeling bad about yourself - or that you are a failure or have let yourself or your family down: not at all 7. Trouble concentrating on things, such as reading the newspaper or watching television: not at all 8. Moving or speaking so slowly that other people could have noticed. Or the opposite - being so fidgety or restless that you have been moving around a lot more than usual: not at all 9. Thoughts that you would be better off or of hurting yourself in some way: not at all Total score: 2 Depression Screening Interpretation: Negative Depression Screening Done: Yes [id number] - PHQ-9 Billing: Yes Source: Developed by Drs. Salo Stratton, Marisa Lopez, Dami Jerry and colleagues, with an educational nickie from [employer]. Thrive Questionnaire Date Thrive assessed: 03/14/24 I am a: Patient What is your living situation today?: I have a steady place to live Within the past 12 months, did the food you bought not last and you didn't have the money to get more?: Never true Within the past 12 months, did you worry whether your food would run out before you got money to buy more?: Never true Do you have trouble paying for medicines?: No Do you have trouble getting transportation to medical appointments?: No Do you have trouble paying your heating and electricity bill?: No Do you have trouble taking care of your child, family member or friend?: No Do you have trouble with day-to-day activities such as bathing, preparing meals, shopping, managing finances, etc.?: No Are you currently unemployed and looking for a job?: No Are you interested in more education?: No Please select the resources that you would like help with: None Currently or been in a relationship where the following occur: No concerns reported THRIVE Score: 0 RAO-7 AMB Questionnaire RAO-7 Date RAO - 7 assessed: 07/26/24 Feeling nervous, anxious, or on edge: 1 = Several days Not being able to stop or control worryin = Nearly every day Worrying too much about different things: 2 = More than half the days Trouble relaxin = Several days Being so restless that it is hard to sit still: 0 = Not at all Becoming easily annoyed or irritable: 1 = Several days Feeling afraid as if something awful might happen: 0 = Not at all Total RAO-7 score (0-4 normal; 5-9 mild; 10-14 moderate; 15-21 severe): 8 Source: Developed by Drs. Salo Stratton, Marisa Lopez, Dami Jerry and colleagues, with an educational nickie from [employer]. RAO-7 Assessment Billing RAO-7 Assessment Tool: RAO-7 Assessment 99186 Review of Systems Const Denies chills, Denies fatigue, Denies fever(s), Denies headache(s) and Denies weakness ENT Denies dizziness and Denies headache(s) Card Denies dyspnea Resp Denies cough, Denies dyspnea, Denies wheezing and Denies other (shortness of breath) Musc Denies numbness and Denies tingling Neuro Denies dizziness, Denies headache(s), Denies numbness, Denies tingling and Denies weakness Psych Reports anxiety and Denies depression Endo Denies fatigue Aller/Immun Denies wheezing Physical exam (Primary Care) Vital Signs: Last Vital Signs Temp 98.3 F 07/26/24 11:42 Pulse 81 07/26/24 11:42 Resp 12 07/26/24 11:42 BP 120/72 07/26/24 11:42 Pulse Ox 97 07/26/24 11:42 Oxygen Delivery Method Room Air 07/26/24 11:42 BMI result Body Mass Index 29.1 Tobacco/Smoking Status: Tobacco use Status Tobacco use date assessed 05/19/22 07/26/24 11:36 Patient Tobacco Use Status Never used Tobacco 07/26/24 11:36 e-Cigarette/Vaping Use Never Used 07/26/24 11:36 PHQ-9: PHQ-9 Score PHQ-9: Total score 2 07/26/24 11:46 Depression Screening Interpretation: Negative Thrive Assessment: Date of Thrive Assessment Date Thrive assessed 03/14/24 07/26/24 11:36 Currently or been in a relationship where the following occur: No concerns reported Const General: well developed; No acute distress Nutritional Appearance: well nourished Orientation/consciousness: patient oriented x3 HENMT Head: Yes normocephalic and Yes atraumatic Eyes General: appearance normal, both eyes and all related structures Pupils: Equal, round and reactive pupils present EOM: EOMs intact bilaterally Resp Effort & Inspection: normal respiratory effort Auscultation: clear to auscultation bilaterally Cardio Rate: regular rate Rhythm: regular rhythm Heart sounds: S1 normal heart sound present, S2 normal heart sound present, no gallops, no murmurs and no rubs Neuro General: patient oriented x3 and gait normal Cranial nerves: Yes Equal, round and reactive pupils present Psych Affect: normal affect Coding Level of Care Code Est Pt Level 4 (65143) Diagnoses Anxiety with depression F41.8 Elevated ALT measurement R74.01 High cholesterol E78.00 Breast cancer screening by mammogram Z12.31 BMI 29.0-29.9,adult Z68.29 Immunization counseling Z71.85 Additional Codes RAO-7 Assessment Billing - RAO-7 Assessment Tool: RAO-7 Assessment 96087 ([id number]) PHQ-9 - 77839 - PHQ-9 Billing: Yes ([id number]) Assessment & Plan Assessment & Plan (1) Anxiety with depression: Code(s): F41.8 - Other specified anxiety disorders Category: Medical Plan: Controlled?on?current?medication?regimen Continue?venlafaxine?and?alprazolam?p.r.n. Encouraged?exercise (2) Elevated ALT measurement: Code(s): R74.01 - Elevation of levels of liver transaminase levels Category: Medical Plan: Mild?ALT?elevation Hydrate?well?and?work?at?weight?loss Will?recheck?in?a?couple?of?months (3) High cholesterol: Code(s): E78.00 - Pure hypercholesterolemia, unspecified Category: Medical Plan: Mildly?elevated?LDL?cholesterol HDL?ratios?are?good?however Continue?atorvastatin?as?prescribed (4) Breast cancer screening by mammogram: Code(s): Z12.31 - Encounter for screening mammogram for malignant neoplasm of breast Category: Medical Plan: Mammogram?has?been?acquired?but?I?do?not?have?the?results?yet - pending Patient?notes?that?she?was?told?she?would?need?extra?views Will?order?these (5) BMI 29.0-29.9,adult: Code(s): Z68.29 - Body mass index [BMI] 29.0-29.9, adult Category: Medical Plan: Discussed?weight?loss Patient?will?continue?to?work?on?this (6) Immunization counseling: Code(s): Z71.85 - Encounter for immunization safety counseling Category: Medical Plan: Recommended?flu?shot?in?the?fall She?will?be?due?for?her?pneumonia?shot?when?she?turns?65 Medications: Changed From alprazolam 0.25 - 0.5 mg PO DAILY PRN anxiety To alprazolam MassPat Verified. 0.25 - 0.5 mg (0.5 - 1 x 0.5 mg) PO DAILY PRN 30 tabs 0RF anxiety 30 days Refilled atorvastatin 20 mg PO BEDTIME 90 tabs 3RF 90 days E78.00 - Pure hypercholesterolemia, unspecified
[2024-07-26 11:42] VITALS: BP 120/72; PULSE 81; RESP 12; TEMP 36.8; O2SAT 97; BMI 29.1
--- OUTSIDE RECORDS SUMMARY | 2024-07-26 11:50 | XMS_ITS | Patient Health Record ---
[facility] Address [address] [place] [address] Care Team Providers Care Drum Builder Name Role Phone Lorie Augustin MD Primary Care Provider Unavailab frances Jennifer Morris Unavailable [phone] Allergies Allergen (clinical drug ingredient) Drug/Non Drug [...] Treatment Pending Test Test Name Order Date 78909-Orat Destruction, -14 10/08/2010 [id number]-Vdwo Destruction, -14 12/11/2010 17429- Debride <25 sq cm 12/11/2010 45376- Debride <25 sq cm 10/08/2010 Insurance Providers Payer Name Payer Address Payer Phone Subscriber Number Group Number Insured Name Patient Relationship to Insured Coverage Start Date Coverage End Date [facility] [employer] [address] [place] [address] [id number] Lorie Rawls Self - patient is the insured Medical (General) History Medical History History ICD Code transfusions scarlet fever rheumatoid arthritis Surgical History Surgery Date(Month/Year) hysterectomy 1998 foot surgery 2010
== END 2024-07-26 12:27 | disposition home or self-care (01) ==
LOC: HO.HMCFM 11:28
PROVIDERS: PCP Family Medicine; Visit Provider Family Medicine
DX: F41.8 Other specified anxiety disorders (principal); R74.01 Elevation of levels of liver transaminase levels; E78.00 Pure hypercholesterolemia, unspecified; Z12.31 Encounter for screening mammogram for malignant neoplasm of breast; Z68.29 Body mass index [BMI] 29.0-29.9, adult; Z71.85 Encounter for immunization safety counseling

== ENCOUNTER → 2024-07-26 11:27 | Outpatient (BNVA) | payer OTHER, SELFPAY | PROVIDERS: PCP Family Medicine; Visit Provider Family Medicine | DX: R74.01 Elevation of levels of liver transaminase levels (principal); F41.8 Other specified anxiety disorders; E78.00 Pure hypercholesterolemia, unspecified; Z71.85 Encounter for immunization safety counseling | CPT/HCPCS: 96127; 99212 ==

== ENCOUNTER 2024-09-30 09:56 | Outpatient (AMB) | payer OTHER, SELFPAY ==
--- NOTE | 2024-09-30 10:00 | MHC.OFFVIS ---
Intake Visit Reasons: 6m/PVR Intake Note: Patient is present for 6M/PVR Urology Medication:NONE Antibiotic Allergy:NONE Blood Thinner:NONE TODAY'S PVR:0ML'S Entry Level Business Analyst Required: No Allergies iodine Allergy (Severe, Verified 09/30/24 11:25) cardiac arrest Medication List - Last Reconciled 09/30/24 by DAVIN PadronP- alprazolam 0.25 - 0.5 mg (0.5 - 1 x 0.5 mg) PO DAILY PRN 30 days atorvastatin 20 mg PO BEDTIME 90 days solifenacin 5 mg PO DAILY 30 days valacyclovir 500 mg PO DAILY venlafaxine ER 150 mg PO DAILY HPI Comments Details: Please is a very pleasant 64-year-old female patient of Dr. Taylor. She has a past medical history of interstitial cystitis, depression, hyperlipidemia, and anxiety. She presents to the office today for follow-up of her interstitial cystitis. Of note, patient underwent cystoscopy hydrodistention with Dr. Diaz 03/01. In discussion with the patient today she reports to be doing and feeling well. She reports utilizing VESIcare as needed when experiencing lower urinary tract symptoms and describes these episodes as infrequent. She had previously trialed low-dose Cialis for bladder stability however felt this made her rosacea worse. She continues with her interstitial cystitis diet. She discusses her longstanding history of interstitial cystitis and initial diagnosis in 1998. In office urinalysis results reviewed with the patient today. PVR 0ml's. She currently denies any bothersome urinary issues. She denies urinary urgency, urinary frequency, incontinence, nocturia, hematuria, foul smelling urine, changes to urinary stream, flank pain, fever, and or chills. She reports having trialed Pyridium and Vistaril in the past with no relief. She otherwise offers no other issues or concerns at this time. Previous notes: The patient has history of interstitial cystitis and underwent cystoscopy hydrodistention on 04/12/2022. The initial bladder capacity measured 650 mL and after bladder distention the bladder capacity was 900 ml. No glomerulations or Tomas ulcerations were visualized. The patient also has history of recurrent UTIs. She completed 12 week bladder instillation with significant improvement in her bladder symptoms. Imagin03/21/22 - CT KUB, kidneys were within normal limits question 2 mm stone seen in the bladder. (cystoscopy 04/12/22 no bladder stone) PFSH Medical History Sinusitis Bladder disease H/O nonmelanoma skin cancer Surgical History History of bladder surgery H/O: hysterectomy History of nasal surgery S/P AURA (total abdominal hysterectomy) History of bunionectomy Status post trigger finger release History of carpal tunnel release Family History Mother Pacemaker Social History Housing: House Patient Tobacco Use Status: Never used Tobacco e-Cigarette/Vaping Use: Never Used Second Hand Smoke Exposure: No service: No Current occupational status: employed Current occupation: Self employed Cognitive needs: No Hearing needs: No Vision needs: No Review of Systems Const Reports as per HPI Eyes Reports no additional complaints ENT Reports no additional complaints Card Reports as per HPI Resp Reports no additional complaints GI Reports no additional complaints Reports as per HPI Musc Reports no additional complaints Neuro Reports no additional complaints Psych Reports as per HPI Endo Reports no additional complaints Misael/Lymph Reports no additional complaints Aller/Immun Reports no additional complaints Physical Exam Const General: cooperative, healthy appearing, comfortable, no acute distress, well developed, alert and awake Orientation/consciousness: patient oriented x3 Limitations: no limitations HEENT Head: Yes normal to inspection, Yes normocephalic and Yes atraumatic Ears: hearing grossly normal bilaterally Eyes General: appearance normal, both eyes and all related structures Neck Neck: Yes normal visual inspection and Yes trachea midline Chest Chest palpation & inspection: normal inspection of the chest Resp Effort & Inspection: normal respiratory effort and able to speak in complete sentences Cardio Rate: regular rate GI Inspection: Yes normal to inspection General: Yes no CVA tenderness Back/Spine/Pelvis Back: no CVA tenderness Skin General skin exam: no rashes or lesions noted Neuro General: patient oriented x3 Extrem General: Yes normal to inspection Psych Appearance: grossly normal and well kempt Mental Status: mental status grossly normal Speech and movement: Normal speech and movement present and Clear speech present Affect: normal affect Attitude: cooperative Thought process: Normal thought process present Thought content: Normal thought content present Insight: Good insight present (Psych) Judgement: Good judgement present (Psych) Office Procedures Post Void Residual Post Residual Void Post Void Residual (PVR): 0 68472-Kysj Void Residual by ultrasound Results AMB Urinalysis, Automated UA Leukoctes 0 Kristian/uL Last Edit by AYLA Castañeda on 09/30/24 10:15 UA Nitrite Negative Last Edit by Roberto Dan [facility] on 09/30/24 10:15 UA Urobilinogen 0.2 mg/dL Last Edit by Roberto Dan [facility] on 09/30/24 10:15 UA Protein 0 mg/dL Last Edit by Roberto Dan [facility] on 09/30/24 10:15 UA pH 6.0 Last Edit by Roberto Dan [facility] on 09/30/24 10:15 UA Blood 0 Kp/uL Last Edit by Roberto Dan [facility] on 09/30/24 10:15 UA Specific [place] 1.015 Last Edit by Roberto Dan [facility] on 09/30/24 10:15 UA Ketone Negative Last Edit by Roberto Dan [facility] on 09/30/24 10:15 UA Bilirubin 0 mg/dL Last Edit by Roberto Dan [facility] on 09/30/24 10:15 UA Glucose 0 mg/dL Last Edit by Roberto Dan [facility] on 09/30/24 10:15 Results Reviewed Results Reviewed: Laboratory Last Values Urine pH (Auto) 6.0 09/30/24 10:14 Specific [place] (Auto) 1.015 09/30/24 10:14 Urine Protein (Auto) 0 mg/dL 09/30/24 10:14 Glucose (UA)(Auto) 0 mg/dL 09/30/24 10:14 Urine Ketones (Auto) Negative 09/30/24 10:14 Urine Blood (Auto) 0 Kp/uL 09/30/24 10:14 Urine Nitrite (Auto) Negative 09/30/24 10:14 Urine Bilirubin (Auto) 0 mg/dL 09/30/24 10:14 Urine Urobilinogen (Auto) 0.2 mg/dL 09/30/24 10:14 Leukocyte Esterase (Auto) 0 Kristian/uL 09/30/24 10:14 Assessment & Plan Assessment & Plan (1) Bladder pain: Code(s): R39.89 - Other symptoms and signs involving the genitourinary system Category: Medical (2) Recurrent UTI: Code(s): N39.0 - Urinary tract infection, site not specified Category: Medical (3) Interstitial cystitis (chronic) with hematuria: Code(s): N30.11 - Interstitial cystitis (chronic) with hematuria Category: Medical (4) Sensation of pressure in bladder area: Code(s): R39.89 - Other symptoms and signs involving the genitourinary system Category: Medical Plan In office urinalysis results reviewed with the patient today; as noted above. PVR 0ml's. Continue VESIcare 5 mg PRN; refill provided. Discussed bladder triggers/irritants. Discussed, educated, encouraged on the importance of drinking plenty of water daily. She denies any bothersome urinary issues or concerns. She is happy with her current voiding parameters. Follow-up in 6 months with PVR; or sooner with any issues, concerns, and or questions. Orders: Orders AMB Urinalysis Automated Today Z13.9 - Encounter for screening, unspecified Medications: Refilled solifenacin 5 mg PO DAILY 30 tabs 6RF 30 days N30.11 - Interstitial cystitis (chronic) with hematuria Patient Instructions: The patient had an opportunity to ask questions regarding the treatment plan. All questions were answered. Physical exam, labs, and imaging were discussed and reviewed in detail. As well as risks, benefits, and discussion of treatment choices. No major barriers to understanding were identified. The patient expressed understanding and agreement with the above treatment plan. The patient was made aware they should contact our office by phone for worsening of their current condition, the appearance of new symptoms, or with any questions or concerns. Compliance is encouraged with any medications and follow up testing that is ordered. It is a privilege to be allowed the opportunity to participate in? your urological care.? Again, if you have any questions or concerns If you have any questions or concerns please do not hesitate to contact me. The office is [phone]. This note is constructed using voice recognition software. While every effort has been made to ensure accuracy lawnmower repair mechanic errors may have been included. Yours sincerely, VANITA Padron Coding Level of Care Code Est Pt Level 3 (30635) Complex EM visit Add On G2211 Diagnoses Bladder pain R39.89 Recurrent UTI N39.0 Interstitial cystitis (chronic) with hematuria N30.11 Sensation of pressure in bladder area R39.89 CPT Codes Post Residual Void - PVR CPT Code: 29871-Vufy Void Residual by ultrasound ([id number])
--- OUTSIDE RECORDS SUMMARY | 2024-09-30 10:54 | XMS_ITS | Clinical Summary ---
Author Organization [facility] Address [address] [address] [place] [phone] Phone Care Team Providers Care Animal Care Taker Name Role Phone Jessica Moreno MD Unavailable [phone] Lily Zurita NP Primary Care Provider Allergies Active Allergy Reactions Criticality Noted Date Comments Iodinated Contrast Media Other (See Comments) High 03/01/2017 Cardiac arrest Pollen Extracts Itching Medium 05/11/2022 Itchy eyes mostly -uses eye gtts to alleviate Medications valACYclovir (VALTREX) 500 MG tablet Take 500 [...] TIMES PER DAY FOR 7 DAYS 6 8 Active doxepin (SINEQUAN) 10 MG capsule Take 1 capsule by mouth daily as needed. 0 Active EPINEPHrine 0.3 mg/0.3 mL auto-injector INJECT 1 INJECTION INTO THE MUSCLE NEEDED FOR ANAPHYLAXIS 2 Device 1 Active famotidine (PEPCID) 20 MG tablet Take 40 mg by mouth daily. 9 Active albuterol 90 mcg/actuation inhalerIndicatio ns:Mild intermittent asthma without complication Inhale 1 puff into the lungs every 4 (four) hours as needed for wheezing. 18 g 1 2 Active hydrOXYzine (VISTARIL) 25 MG capsule PLEASE SEE ATTACHED FOR DETAILED DIRECTIONS 3 Active cetirizine (ZYRTEC) 10 mg capsule Take 10 mg by mouth. 1 Active neomycin-polymyx in B-dexamethasone (MAXITROL) 3.5 mg/g-10,000 unit/g-0.1 % Oint as needed. Itchy eyes - seasonally 3 Active nitrofurantoin (MACROBID) 100 MG capsule TAKE 1 CAP BY MOUTH EVERY 12 HOURS X 7 DAYS. MUST ADMINISTER WITH A MEAL/FOOD 3 Active phenazopyridine (PYRIDIUM) 200 MG tablet Take 200 mg by mouth 3 (three) times a day. 3 Active Active Problems Problem Noted Date Diagnosed [...] unresolved will pursue w/u. Needs referral to seat joiner. Mild intermittent asthma without complication Assessment & [...] no improvement. Stretches discussed, handout provided. Immunizations Immunization Administration Dates Next Due COVID-19 (Pre-11/28) Pfizer Vaccine, mRNA, PF 05/30/2020,05/09/2020 Hepatitis B Adult 09/07/2010,05/26/2010,05/01/19 11 INFLUENZA, SPLIT VIRUS, TRIVALENT PF 12/08/2015, 12/11/2006 Influenza Quadrivalent Prese rvative Free IM 10/19/2020,12/13/2019,12/07/2018,11/29,01/13/2015,11/21/2013 Pneumococcal polysaccharide PPSV23 08/21(Deferred: Other - schedule [...] your housing situation today? I have dwaine ward 04/22/2021 How many times have you move [...] Answer Date Recorded No 07/02/2022 No 07/02/2022 Reliable internet access at home? Not on file 07/02/2022 Device with a working camera? Not on file Comments Unknown Sex and Gender Information Value Date Recorded Sex Assigned at Female 08/28/2020 3:34 PM EDT Legal Sex Female 9:48 PM EDT Gender Identity Female 08/28/2020 3:34 PM EDT Sexual Orientation Straight 08/28/2020 3: 34 PM EDT Last Filed Vital Signs Vital Sign Reading Time Taken Comments Blood Pressure 118/70 04/22/2021 1:18 PM EDT Pulse 85 04/22/2021 1:18 PM EDT Temperature 36.4 C (97.5 F) 02/18/2021 8:00 PM EST Respiratory Rate 16 04/22/2021 1:18 PM EDT Oxygen Saturation 98% 04/22/2021 1:18 PM EDT Inhaled Oxygen Concentration - - Weight 69.2 kg (152 lb 9.6 oz) 04/22/2021 1:18 P M EDT Height 152.4 cm (5') 04/22/2021 1:18 PM EDT Body Mass Index 29.8 04/22/2021 1:18 PM EDT Plan of Treatment Health Maintenance Due Date Last Done Comments HEPATITIS C SCREENING 1978 HIV ONE-TIME SCREENING (18-65 YEARS) 1978 PNEUMOCOCCAL VACCINES (50+ years) (1 of 2 - PCV) 1979 COLOGUARD 2005 FIT TEST 2005 FOBT 2005 SIGMOIDOSCOPY 2005 VIRTUAL COLONOSCOPY 2005 RSV VACCINE (1 - Risk 60-74 years 1-dose series) 2020 Adult Td,Tdap Booster 04/30/2020 04/30/2010, 008 DEPRESSION SCREENING 04/22/2022 04/22/2021 MAMMOGRAM 03/16/2023 03/16/2021, 11/06, 09/01/2016 COVID-19 VACCINE ( season) 2023 12/24/2020, 05/30/2020, 05/09/2020 LIPID PANEL 05/29/2025 05/29/2020, 09/07, 01/13/2015, Additional history exists COLONOSCOPY 11/14/2026 11/14/2016 COLORECTAL CANCER SCREENING 11/14/2026 ZOSTER VACCINES Completed 10/23/2019, 08/21/2019 SMOKING STATUS [...] age to complete this topic MENINGOCOCCAL VACCINES (B) Aged Out N o longer eligible based on patient's age to complete this topic Medical Devices Not on file Procedures Procedure Name Priority Date/Time Associated Diagnosis Comments MAMMOGRAPHY Routine 03/16/2021 LIPID PANEL Routine 05/29/2020 11:10 AM EDT Mixed hyperlipidemia from Last 3 Months or Most Recently Relevant to Health Maintenance Results * MAMMOGRAPHY FOR RESULT ENTRY ONLY (03/16/2021) Historical Provider HEALTH MAINTENANCE Edited Result - Final * (ABNORMAL) Lipid panel (05/29/2020 11:10 AM EDT) HDL 66 mg/dL [facility] Comment: Interpretation <40 mg/dL: Low HDL cholesterol (major risk factor for CHD) Greater than or equal to 60 mg/dL: High HDL cholesterol ( negative risk factor for CHD) HDL - cholesterol is affected by a number of factors, e.g. smoking, excerise, hormones, sex and age. CHOLESTEROL 209 0 - 240 mg/dL [facility] TRIGLYCERIDES 97 30 - 160 mg/dL [facility] LDL 124 50 - 129 mg/dL [facility] Comment: LDL levels in terms of risk for coronary heart disease: <100 mg/dL: Optimal 100-129 mg/dL: Near or above optimal 130-159 mg/dL: Borderline high 160-189 mg/dL: High >190 mg/dL: Very High CARDIAC RISK RATIO 3.2(L) 3.3 - 4.4 [facility] Blood 05/29/2020 11:1 0 AM EDT 05/29/2020 11:13 AM EDT Alicia Reed ASSISTANT PROFESSOR OF ART LAB BLOOD ORDERABLES F inal Result [facility] [address] [place] [address] from Last 3 Months or Most Recently Relevant to Health Maintenance Insurance [employer] Care Teams Animal Care Taker Relationship Specialty Start Date End Date Lily Zurita NP [address] [address] PCP - General Nurse Practitioner 05/11/22 Jessica Moreno MD [facility] [address] [address] Obstetrics 08/21/19 Additional Source Comments The information contained in this document represents components of the legal health record. It is not the complete legal health record.[facility]
== END 2024-09-30 10:59 | disposition home or self-care (01) ==
LOC: HO.HUSH 09:57
PROVIDERS: PCP Family Medicine; Visit Provider Nurse Practitioner Family
DX: R39.89 Other symptoms and signs involving the genitourinary system (principal); N39.0 Urinary tract infection, site not specified; N30.11 Interstitial cystitis (chronic) with hematuria; Z13.9 Encounter for screening, unspecified
CPT/HCPCS: 99213

== ENCOUNTER → 2024-09-30 09:56 | Outpatient (BNVA) | payer OTHER, SELFPAY | PROVIDERS: PCP Family Medicine; Visit Provider Nurse Practitioner Family | DX: N30.11 Interstitial cystitis (chronic) with hematuria (principal); R39.89 Other symptoms and signs involving the genitourinary system | CPT/HCPCS: 51798; 81003; 99212 ==

== ENCOUNTER 2024-09-30 11:07 | Outpatient (REF) | payer OTHER, SELFPAY ==
[2024-09-30 13:49] LABS: Alanine Aminotransferase 50 U/L (0-31); Albumin Level 4.6 g/dL (3.5-5.0); Alkaline Phosphatase 120 U/L (39-117); Anion Gap 11 (12-20); Aspartate Amino Transferase 35 U/L (5-31); Blood Urea Nitrogen 13 mg/dL (9-16); Calcium 9.7 mg/dL (8.4-10.2); Carbon Dioxide 28 mmol/L (22-29); Chloride 106 mmol/L (96-108); Cholesterol 189 mg/dL (<200); Estimated Glomerular Filt Rate > 60; HDL Cholesterol 59 mg/dL (>40); Potassium 3.8 mmol/L (3.3-5.1); Sodium 141 mmol/L (135-145); Total Protein 7.1 g/dL (6.5-8.0); Triglycerides 154 mg/dL (<150)
== END 2024-09-30 11:08 | disposition home or self-care (01) ==
LOC: HO.10HDL 11:07
PROVIDERS: Visit Provider Family Medicine
DX: Z00.00 Encounter for general adult medical examination without abnormal findings (principal); R74.01 Elevation of levels of liver transaminase levels; E78.00 Pure hypercholesterolemia, unspecified; Z13.89 Encounter for screening for other disorder
CPT/HCPCS: 36415; 80053; 80061

== ENCOUNTER 2024-10-01 12:04 | Outpatient (REF) | payer OTHER, SELFPAY ==
--- NOTE | ~2024-10-01 | US_ITS ---
EXAMINATION: US SCREENING ULTRASOUND BREAST, BILATERAL CLINICAL INFORMATION: Dense breasts on mammography. Screening ultrasound. COMPARISON: None available. TECHNIQUE: Ultrasound is performed using grayscale imaging and color Doppler. Imaging is performed to include the four quadrants and retroareolar region. Both breasts are imaged. FINDINGS: Right breast: There is no suspicious finding by ultrasound. There is no solid mass or focal architectural abnormality. Left breast: There is no suspicious finding by ultrasound. There is no solid mass or focal architectural abnormality. US/US breast BI complete IMPRESSION: No suspicious findings on screening breast ultrasound. ASSESSMENT: BI-RADS 1 - Negative RECOMMENDATION: 1 year F/U This patient's information was entered into a reminder system with a target due date for their next mammogram. Electronically signed by: Isabella Hammond DO 10/01/2024 12:40 PM EDT
--- OUTSIDE RECORDS SUMMARY | 2024-10-01 12:57 | XMS_ITS | Clinical Summary ---
Author Organization [facility] Address [address] [facility] [address] [place] [address] Phone Care Team Providers Care As400 Programmer Name Role Phone Jessica Moreno MD Unavailable [phone] Lily Zurita NP Primary Care Provider Allergies [...] unresolved will pursue w/u. 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 Mild intermittent asthma without complication Assessment & [...] VACCINE ( season) 2023 12/24/2020, 05/30/2020, 05/09/2020 INFLUENZA VACCINE (#1) 2024 , 12/13/2019, 12/07/2018, Additional history exists LIPID PANEL 05/29/2025 05/29/2020, 09/07, 01/13/2015, Additional [...] (05/29/2020 11:10 AM EDT) HDL 66 mg/dL [facility] Comment: Interpretation <40 mg/dL: Low HDL cholesterol (major risk factor for CHD) Greater than or equal to 60 mg/dL: High HDL cholesterol ( negative risk factor for CHD) HDL - cholesterol is affected by a number of factors, e.g. smoking, excerise, hormones, sex and age. CHOLESTEROL 209 0 - 240 mg/dL [facility] TRIGLYCERIDES 97 30 - 160 mg/dL [facility] LDL 124 50 - 129 mg/dL [facility] Comment: LDL levels in terms of risk for coronary heart disease: <100 mg/dL: Optimal 100-129 mg/dL: Near or above optimal 130-159 mg/dL: Borderline high 160-189 mg/dL: High >190 mg/dL: Very High CARDIAC RISK RATIO 3.2(L) 3.3 - 4.4 [facility] Blood 05/29/2020 11:1 0 AM EDT 05/29/2020 11:13 AM EDT Alicia Reed [employer] [employer] LAB BLOOD ORDERABLES F inal Result [facility] [address] [place] [address] from Last 3 Months or Most Recently Relevant to [place] [address] Care Teams As400 Programmer Relationship Specialty Start Date End Date Lily Zurita NP [address] [place] [phone] PCP - General Nurse Practitioner 05/11/22 Jessica Moreno MD [address] [place] [phone] Obstetrics 08/21/19 Additional Source Comments The information contained in this document represents components of the legal health record. It is not the complete legal health record.[facility]
--- OUTSIDE RECORDS SUMMARY | 2024-10-01 12:57 | XMS_ITS | Patient Health Record ---
Author Organization [facility] Address [address] [place] [address] Care Team Providers Care Marketing Secretary Name Role Phone Lorie Augustin MD Primary Care Provider Unavailab frances Jennifer Morris Unavailable [phone] Allergies Allergen (clinical drug ingredient) Drug/Non Drug [...] Treatment Pending Test Test Name Order Date [id number] Destruction, -14 10/08/2010 [id number] Destruction, -14 12/11/2010 50505- Debride <25 sq cm 12/11/2010 69111- Debride <25 sq cm 10/08/2010 Insurance Providers Payer Name Payer Address Payer Phone Subscriber Number Group Number Insured Name Patient Relationship to Insured Coverage Start Date Coverage End Date [facility] All Others [address] [place] [address] [id number] Lorie Rawls Self - patient is the insured Medical (General) History Medical History History ICD Code transfusions scarlet fever rheumatoid arthritis Surgical History Surgery Date(Month/Year) hysterectomy 1998 foot surgery 2010
== END 2024-10-01 12:05 | disposition home or self-care (01) ==
LOC: HO.MAMMO 12:04
PROVIDERS: PCP Family Medicine; Visit Provider Family Medicine
DX: R92.30 Dense breasts, unspecified (principal)
CPT/HCPCS: 76641

== ENCOUNTER → 2024-10-01 12:05 | Outpatient (BNV) | payer OTHER, SELFPAY | PROVIDERS: PCP Family Medicine; Visit Provider Internal Medicine | DX: R92.30 Dense breasts, unspecified (principal) | CPT/HCPCS: 76641 ==

== ENCOUNTER 2024-10-03 14:24 | Outpatient (AMB) | payer OTHER, SELFPAY ==
--- NOTE | 2024-10-03 14:47 | MHC.PC.OV ---
Vital Signs 10/03/24 14:48 Height 5 ft Weight 146 lb 2 oz BMI 28.5 BP 128/84 Blood Pressure Location Rt brachial Position Sitting Respiration 14 Pulse 75 Pulse Source Pulse Oximeter Pulse Oximetry (%) 95 Oxygen Delivery Method Room Air Intake Visit Reasons: f/u liver enzymes, labs Intake Note: Follow up. Lab results. Right knee pain and swelling. Manager Respiratory Care Required: No Allergies iodine Allergy (Severe, Verified 10/03/24 14:47) cardiac arrest Tobacco use date assessed: 10/03/24 Fall risk assessment: No Falls in past year Last assessed Fall Risk: 10/03/24 Dental Screening Dental Screen Date: 10/03/24 Did you have a dental visit in the last 12 months?: Yes Did you have a dental problem in the last 6 months where you did not have access to dental care?: No Was dental information given to patient?: Patient has dentist HPI f/u liver enzymes, labs HPI Details 64 y/o female presents to f/u liver enzymes, labs. Labs drawn 09/30/24. Reviewed labs with pt. AST 35. ALT worsened from 35 to 50. Does use some tylenol for knee pain. Triglycerides 154. TC 189. LDL 100. HDL 59. Complaints of R knee pain. Does have significant swelling. [facility] Medical History Sinusitis Bladder disease H/O nonmelanoma skin cancer Surgical History History of bladder surgery H/O: hysterectomy History of nasal surgery S/P AURA (total abdominal hysterectomy) History of bunionectomy Status post trigger finger release History of carpal tunnel release Family History Mother Pacemaker Social History Housing: House Patient Tobacco Use Status: Never used Tobacco e-Cigarette/Vaping Use: Never Used Second Hand Smoke Exposure: No service: No Current occupational status: retired Current occupation: Self employed Cognitive needs: No Hearing needs: No Vision needs: No Questionnaire Thrive Questionnaire Date Thrive assessed: 03/14/24 I am a: Patient What is your living situation today?: I have a steady place to live Within the past 12 months, did the food you bought not last and you didn't have the money to get more?: Never true Within the past 12 months, did you worry whether your food would run out before you got money to buy more?: Never true Do you have trouble paying for medicines?: No Do you have trouble getting transportation to medical appointments?: No Do you have trouble paying your heating and electricity bill?: No Do you have trouble taking care of your child, family member or friend?: No Do you have trouble with day-to-day activities such as bathing, preparing meals, shopping, managing finances, etc.?: No Are you currently unemployed and looking for a job?: No Are you interested in more education?: No Please select the resources that you would like help with: None Currently or been in a relationship where the following occur: No concerns reported THRIVE Score: 0 AUDIT C Alcohol Use Questionnaire (AUDIT-C) 1. How often do you have a drink containing alcohol?: Never 3. How often do you have six or more drinks on one occasion?: Never Total Score: 0 RAO-7 AMB Questionnaire RAO-7 Date RAO - 7 assessed: 07/26/24 Source: Developed by Drs. Salo Stratton, Marisa Lopez, Dami Jerry and colleagues, with an educational nickie from [employer]. Review of Systems Const Denies chills, Denies fatigue, Denies fever(s), Denies headache(s) and Denies weakness ENT Denies dizziness and Denies headache(s) Card Denies dyspnea Resp Denies cough, Denies dyspnea, Denies wheezing and Denies other (shortness of breath) Musc Denies numbness and Denies tingling Neuro Denies dizziness, Denies headache(s), Denies numbness, Denies tingling and Denies weakness Psych Denies anxiety and Denies depression Endo Denies fatigue Aller/Immun Denies wheezing Physical exam (Primary Care) Vital Signs: Last Vital Signs Pulse 75 10/03/24 14:48 Resp 14 10/03/24 14:48 BP 128/84 10/03/24 14:48 Pulse Ox 95 10/03/24 14:48 Oxygen Delivery Method Room Air 10/03/24 14:48 BMI result Body Mass Index 28.5 Tobacco/Smoking Status: Tobacco use Status Tobacco use date assessed 10/03/24 10/03/24 14:52 Patient Tobacco Use Status Never used Tobacco 10/03/24 14:47 e-Cigarette/Vaping Use Never Used 10/03/24 14:47 Thrive Assessment: Date of Thrive Assessment Date Thrive assessed 03/14/24 10/03/24 14:47 Currently or been in a relationship where the following occur: No concerns reported Const General: well developed; No acute distress Nutritional Appearance: well nourished Orientation/consciousness: patient oriented x3 HENMT Head: Yes normocephalic and Yes atraumatic Eyes General: appearance normal, both eyes and all related structures Pupils: Equal, round and reactive pupils present EOM: EOMs intact bilaterally Resp Effort & Inspection: normal respiratory effort Auscultation: clear to auscultation bilaterally Cardio Rate: regular rate Rhythm: regular rhythm Heart sounds: S1 normal heart sound present, S2 normal heart sound present, no gallops, Murmur heart sound present and no rubs Neuro General: patient oriented x3 and gait normal Cranial nerves: Yes Equal, round and reactive pupils present Psych Affect: normal affect Coding Level of Care Code Est Pt Level 5 (59300) Diagnoses Elevated liver enzymes R74.8 High cholesterol E78.00 Anxiety with depression F41.8 Knee pain M25.569 Heart murmur R01.1 Assessment & Plan Assessment & Plan (1) Elevated liver enzymes: Code(s): R74.8 - Abnormal levels of other serum enzymes Category: Medical Plan: Liver enzymes have risen Reviewed her medications and she has been on them for quite some time Likely some dehydration and some fatty liver disorder She does use some Tylenol for knee pain but does not exceed recommended doses She says she does not drink alcohol. Will check ultrasound with elastography (2) High cholesterol: Code(s): E78.00 - Pure hypercholesterolemia, unspecified Category: Medical Plan: Still mildly elevated Discuss further at subsequent visits She is working weight loss (3) Anxiety with depression: Code(s): F41.8 - Other specified anxiety disorders Category: Medical Plan: Patient is taking venlafaxine and alprazolam. Reviewed letter from her prior psych med provider. Medications are appropriate and take over management of these medications. (4) Knee pain: Code(s): M25.569 - Pain in unspecified knee Category: Medical Plan: Rate knee pain with swelling. No erythema or warmth Jessica's test is mildly positive She also notes some ?giving out? Concern for in internal derangement May also have some arthritis Check x-ray Will refer to Ortho (5) Heart murmur: Code(s): R01.1 - Cardiac murmur, unspecified Category: Medical Plan: Patient notes history of rheumatic fever as a child 3/6 systolic murmur Check echo Plan She will return in 2 months to follow-up echocardiogram for murmur and history of rheumatic fever as a child, liver ultrasound with elevated liver enzymes, right knee x-ray with right knee pain and swelling Patient is taking venlafaxine and alprazolam. Reviewed letter from her prior psych med provider. Medications are appropriate and take over management of these medications. Orders: Orders XR knee RT 3V 10/03/24 M25.569 - Pain in unspecified knee CA echo transthoracic complete 10/03/24 R01.1 - Cardiac murmur, unspecified, Z86.79 - Personal history of other diseases of the circulatory system US abdomen dailey w elastography 10/03/24 R74.8 - Abnormal levels of other serum enzymes Referrals Orthopedics Referral M25.569 - Pain in unspecified knee
[2024-10-03 14:48] VITALS: BP 128/84; PULSE 75; RESP 14; O2SAT 95; BMI 28.5
--- OUTSIDE RECORDS SUMMARY | 2024-10-03 15:08 | XMS_ITS | Patient Health Record ---
[facility] Address [address] [place] [address] Care Team Providers Care Concierge Name Role Phone Lorie Augustin MD Primary Care Provider Unavailab frances Jennifer Morris Unavailable [phone] Allergies Allergen (clinical drug ingredient) Drug/Non Drug [...] Treatment Pending Test Test Name Order Date [id number] Destruction, -14 10/08/2010 [id number] Destruction, -14 12/11/2010 01580- Debride <25 sq cm 12/11/2010 79541- Debride <25 sq cm 10/08/2010 Insurance Providers Payer Name Payer Address Payer Phone Subscriber Number Group Number Insured Name Patient Relationship to Insured Coverage Start Date Coverage End Date [facility] All Others [address] [place] [address] [id number] Lorie Rawls Self - patient is the insured Medical (General) History Medical History History ICD Code transfusions scarlet fever rheumatoid arthritis Surgical History Surgery Date(Month/Year) hysterectomy 1998 foot surgery 2010
--- OUTSIDE RECORDS SUMMARY | 2024-10-03 15:09 | XMS_ITS | Clinical Summary ---
Author Organization [facility] Address [address] [facility] [address] [place] [phone] Phone Care Team Providers Care Software Tools Developer Name Role Phone Jessica Moreno MD Unavailable [phone] Lily Zurita NP Primary Care Provider Allergies [...] unresolved will pursue w/u. Needs referral to drum barker operator. Mild intermittent asthma without complication Assessment & [...] (05/29/2020 11:10 AM EDT) HDL 66 mg/dL [facility] Comment: Interpretation <40 mg/dL: Low HDL cholesterol (major risk factor for CHD) Greater than or equal to 60 mg/dL: High HDL cholesterol ( negative risk factor for CHD) HDL - cholesterol is affected by a number of factors, e.g. smoking, excerise, hormones, sex and age. CHOLESTEROL 209 0 - 240 mg/dL [facility] TRIGLYCERIDES 97 30 - 160 mg/dL [facility] LDL 124 50 - 129 mg/dL [facility] Comment: LDL levels in terms of risk for coronary heart disease: <100 mg/dL: Optimal 100-129 mg/dL: Near or above optimal 130-159 mg/dL: Borderline high 160-189 mg/dL: High >190 mg/dL: Very High CARDIAC RISK RATIO 3.2(L) 3.3 - 4.4 [facility] Blood 05/29/2020 11:1 0 AM EDT 05/29/2020 11:13 AM EDT Alicia Reed FOOD AND BEVERAGE SERVER LAB BLOOD ORDERABLES F inal Result [facility] [address] [place] [address] from Last 3 Months or Most Recently Relevant to Health Maintenance Insurance Care Teams Software Tools Developer Relationship Specialty Start Date End Date Lily Zurita NP [address] [place] [address] PCP - General Nurse Practitioner 05/11/22 Jessica Moreno MD [address] [place] [address] Obstetrics 08/21/19 Additional Source Comments The information contained in this document represents components of the legal health record. It is not the complete legal health record.[facility]
== END 2024-10-03 15:27 | disposition home or self-care (01) ==
LOC: HO.HMCFM 14:25
PROVIDERS: PCP Family Medicine; Visit Provider Family Medicine
DX: R74.8 Abnormal levels of other serum enzymes (principal); E78.00 Pure hypercholesterolemia, unspecified; F41.8 Other specified anxiety disorders; M25.561 Pain in right knee; R01.1 Cardiac murmur, unspecified

== ENCOUNTER 2024-10-03 14:24 | Outpatient (REF) | payer OTHER, SELFPAY ==
--- NOTE | ~2024-10-03 | XR_ITS ---
EXAMINATION: XR KNEE, RIGHT CLINICAL INFORMATION: M25.569 - Pain in unspecified knee COMPARISON: None available. TECHNIQUE: Three views of the right knee. FINDINGS: There is a joint effusion. There is moderate narrowing of the medial joint space and moderate sized marginal osteophytes in the medial joint line. Intercondylar tubercles are peaked. Patellofemoral joint was osteophytes are present as well. XR/XR knee RT 3V IMPRESSION: Moderate osteoarthritis with a secondary joint effusion. Electronically signed by: Soto Fernandez MD 10/03/2024 04:25 PM EDT
== END 2024-10-03 14:25 | disposition home or self-care (01) ==
LOC: HO.XRAY 14:24
PROVIDERS: PCP Family Medicine; Visit Provider Family Medicine
DX: R74.8 Abnormal levels of other serum enzymes (principal); E78.00 Pure hypercholesterolemia, unspecified; F41.8 Other specified anxiety disorders; R01.1 Cardiac murmur, unspecified; M25.561 Pain in right knee
CPT/HCPCS: 73562; 99212

== ENCOUNTER → 2024-10-03 16:00 | Outpatient (BNV) | payer OTHER, SELFPAY | PROVIDERS: PCP Family Medicine; Visit Provider Radiology Diagnostic Radiology | DX: M17.11 Unilateral primary osteoarthritis, right knee (principal); M25.461 Effusion, right knee | CPT/HCPCS: 73562 ==

== ENCOUNTER → 2024-10-11 14:00 | Outpatient (REF) | payer OTHER, SELFPAY ==
--- NOTE | 2024-10-11 14:03 | CA_ITS ---
Transthoracic Echocardiogram Patient (Last, First, Middle): Lorie Rawls, Gender: Female Date of : 1960 Age: 64 Procedure Date: 10/11/2024 Procedure Type: Transthoracic Echocardiogram Location: OP Height: 152.4 cm Weight: 65.77 kg BSA: 1.63 m2 Heart Rate: bpm BP: 128 / 74 mmHg Construction Foreman: TO Referring MD: Justin Taylor MD Symptoms: R01.1 - Cardiac murmur, unspecified Study Quality: Adequate Conclusions: - Normal left ventricular size, thickness, systolic function, and wall motion. The visually estimated ejection fraction is between 60-65%. Abnormal diastolic function is noted. Spectral Doppler is indicative of a pseudonormal filling pattern. Elevated filling pressures. - Normal right ventricular cavity size and systolic function. - There is trace mitral valve regurgitation. - There is trace tricuspid valve regurgitation. Findings Left Ventricle Normal left ventricular size, thickness, systolic function, and wall motion. The visually estimated ejection fraction is between 60-65%. Abnormal diastolic function is noted. Spectral Doppler is indicative of a pseudonormal filling pattern. Elevated filling pressures. Right Ventricle Normal right ventricular cavity size and systolic function. Atria The left atrium is normal in size. The right atrium is normal in size. Aortic Valve There is a normal trileaflet aortic valve. There is mild calcification of the aortic valve. There is no aortic valve stenosis. There is no aortic valve regurgitation. Mitral Valve The mitral valve appears normal. There is trace mitral valve regurgitation. There is no mitral valve stenosis. Pulmonic Valve The pulmonic valve is normal. There is no pulmonic valve regurgitation. Tricuspid Valve Normal tricuspid valve structure. There is trace tricuspid valve regurgitation. Normal right atrial pressure. There is no evidence of pulmonary hypertension. Great Vessels All visible segments of the aorta are normal in size. The visualized portions of the pulmonary artery and branches are normal. Venous The inferior vena cava is normal in size and collapses greater than 50% with inspiration. Pericardium/Pleural Prominent epicardial adipose tissue noted. There is no evidence of pericardial effusion. Prior Study Comparison No prior study available for comparison. Measurements 2D Linear Measurements IVSd: 0.93 0.6-0.9/0.6-1.0 cm LVIDd: 3.43 3.9-5.3/4.2-5.9 cm LVIDd Index: 2.10 2.4-3.2/2.2-3.1 cm/m2 LVIDs: 1.98 2.0-3.6 cm LVPWd: 0.81 0.7-1.1 cm LA Diam: 2.90 2.7-3.8/3.0-4.0 cm LAIDs Index: 1.78 1.5-2.3 cm/m2 LV Mass: 101.50 67-162/88-224 g LV Mass Index: 62.27 43-95/49-115 g/m2 LVOT Diam: 2.20 3.0+(-)1.3 cm 2D Systolic Function EF 4C: 69.40 >55% EF 2C: 66.10 >55% EF BiP: 67.60 >55% Mitral Valve MV VTI: 0.33 MV Pk Andre: 1.10 MV Mn Andre: 0.68 MV Pk Grad: 5.00 MV Mn Grad: 2.00 MV Pk E: 0.90 MV PK A: 0.76 MV Decel Time: 165.00 E/A: 1.20 E'Lateral: 6.85 E'Medial: 4.79 E/E' Med: 18.80 E/E' Lat: 13.10 PHT: 48.00 MVA PHT: 4.58 MVA Continuity: 2.44 Decel Knox: 5.45 Aortic Valve AoV Pk Andre: 1.72 AoV Mn Andre: 1.16 AoV VTI: 0.36 AoV Pk Grad: 12.00 Aov Mn Grad: 6.00 GIGI Cont.VTI: 2.28 LVOT LVOT Pk Andre: 0.93 LVOT Mn Andre: 0.65 LVOT VTI: 0.21 LVOT Pk Grad: 3.00 LVOT Mn Grad: 2.00 LVOT Diam: 2.20 LVOT Area: 3.80 Diastolic Function MV Pk E: 0.90 MV Pk A: 0.76 E/A: 1.20 E'Medial: 4.79 E/E' Med: 18.80 E' Laterial: 6.85 E/E' Lat: 13.10 Right Ventricle TAPSE (mm): 21.90 TVS' Andre: 13.10 Tricuspid Valve TR Pk Andre: 1.98 TR Pk Grad: 16.00 RA Press: 3.00 RVSP: 19.00 Great Vessels Aorta Sinus of Valsalva: 3.17 2.0-3.5 cm Ao Asc: 2.80 2.1-3.4 cm Ao Arch: 2.20 Pulmonary Veins Pulm Vein S/D 1.60 Updated in Other Vendor System with Status of Final Sundeep Canada MD electronically signed on 10/12/2024 12:33:59 PM with status of Final
--- OUTSIDE RECORDS SUMMARY | 2024-10-11 14:36 | XMS_ITS | Patient Health Record ---
[facility] Address [address] [place] [address] Care Team Providers Care Alteration Inspector Name Role Phone Lorie Augustin MD Primary Care Provider Unavailab frances Jennifer Morris Unavailable [phone] Allergies Allergen (clinical drug ingredient) Drug/Non Drug [...] Treatment Pending Test Test Name Order Date [id number] Destruction, -14 10/08/2010 [id number] Destruction, -14 12/11/2010 83689- Debride <25 sq cm 12/11/2010 04213- Debride <25 sq cm 10/08/2010 Insurance Providers Payer Name Payer Address Payer Phone Subscriber Number Group Number Insured Name Patient Relationship to Insured Coverage Start Date Coverage End Date [facility] All Others [address] [place] [address] [id number] Lorie Rawls Self - patient is the insured Medical (General) History Medical History History ICD Code transfusions scarlet fever rheumatoid arthritis Surgical History Surgery Date(Month/Year) hysterectomy 1998 foot surgery 2010
--- OUTSIDE RECORDS SUMMARY | 2024-10-11 14:36 | XMS_ITS | Clinical Summary ---
Author Organization [facility] Address [address] [facility] [address] [place] [address] Phone Care Team Providers Care Fuel Truck Driver Name Role Phone Jessica Moreno MD Unavailable [phone] Lily Zurita NP Primary Care Provider Allergies [...] unresolved will pursue w/u. Needs referral to ict programmer. Mild intermittent asthma without complication Assessment & [...] 04/22/2022 04/22/2021 MAMMOGRAM 03/16/2023 03/16/2021, 11/06, 09/01/2016 INFLUENZA VACCINE (#1) 2024 , 12/13/2019, 12/07/2018, Additional history exists COVID-19 VACCINE (2024- season) 2024 12/24/2020, 05/30/2020, 05/09/2020 LIPID PANEL 05/29/2025 05/29/2020, [...] (05/29/2020 11:10 AM EDT) HDL 66 mg/dL [facility] Comment: Interpretation <40 mg/dL: Low HDL cholesterol (major risk factor for CHD) Greater than or equal to 60 mg/dL: High HDL cholesterol ( negative risk factor for CHD) HDL - cholesterol is affected by a number of factors, e.g. smoking, excerise, hormones, sex and age. CHOLESTEROL 209 0 - 240 mg/dL [facility] TRIGLYCERIDES 97 30 - 160 mg/dL [facility] LDL 124 50 - 129 mg/dL [facility] Comment: LDL levels in terms of risk for coronary heart disease: <100 mg/dL: Optimal 100-129 mg/dL: Near or above optimal 130-159 mg/dL: Borderline high 160-189 mg/dL: High >190 mg/dL: Very High CARDIAC RISK RATIO 3.2(L) 3.3 - 4.4 [facility] Blood 05/29/2020 11:1 0 AM EDT 05/29/2020 11:13 AM EDT Alicia Reed BUSINESS ANALYTICS FACULTY MEMBER LAB BLOOD ORDERABLES F inal Result [facility] [address] [place] [address] from Last 3 Months or Most Recently Relevant to Health Maintenance Insurance Care Teams Fuel Truck Driver Relationship Specialty Start Date End Date Lily Zurita NP [address] [place] [id number] PCP - General Nurse Practitioner 05/11/22 Jessica Moreno MD [address] [place] [id number] Obstetrics 08/21/19 Additional Source Comments The information contained in this document represents components of the legal health record. It is not the complete legal health record.[facility]
== END ==
LOC: HO.CARD 14:00
PROVIDERS: PCP Family Medicine; Visit Provider Family Medicine
DX: R01.1 Cardiac murmur, unspecified (principal); Z86.79 Personal history of other diseases of the circulatory system
CPT/HCPCS: 93306

== ENCOUNTER → 2024-10-11 14:03 | Outpatient (BNV) | payer OTHER, SELFPAY | PROVIDERS: PCP Family Medicine; Visit Provider Internal Medicine Cardiovascular Disease | DX: I35.8 Other nonrheumatic aortic valve disorders (principal); R01.1 Cardiac murmur, unspecified | CPT/HCPCS: 93306 ==

== ENCOUNTER 2024-12-31 13:07 | Outpatient (AMB) | payer OTHER, SELFPAY ==
--- NOTE | 2024-12-31 13:09 | A.OFFVIS_ITS ---
Vital Signs 12/31/24 13:15 Height 5 ft Weight 143 lb 4.807 oz BMI 28.0 BP 130/72 Blood Pressure Location Lt brachial Position Sitting Pulse 82 Pulse Source Monitor Intake Visit Reasons: heart murmur/echo done 10/11 Gerontological Nurse Practitioner Required: No Accompanied by: Self / Same As Patient Allergies iodine Allergy (Severe, Verified 10/03/24 14:47) cardiac arrest Medication List - Last Reconciled 12/31/24 by Kyle Bansal MD alprazolam 0.25 - 0.5 mg (0.5 - 1 x 0.5 mg) PO DAILY PRN 30 days atorvastatin 20 mg PO BEDTIME 90 days solifenacin 5 mg PO DAILY 30 days valacyclovir 500 mg PO DAILY venlafaxine ER 150 mg PO DAILY 90 days HPI Comments Details: Lorie has been referred for cardiac evaluation due to heart murmur. Patient herself does not have any known cardiac issues like coronary disease or myocardial infarction or cardiomyopathy. Remote history rheumatic fever per patient. Otherwise, within limits of her activity, she does not have any complaints like angina or shortness of breath. Active with absolutely no limitations. No major cardiac risk factors either. [facility] History Sinusitis Bladder disease H/O nonmelanoma skin cancer Surgical History History of bladder surgery H/O: hysterectomy History of nasal surgery S/P AURA (total abdominal hysterectomy) History of bunionectomy Status post trigger finger release History of carpal tunnel release Family History Mother Pacemaker Social History Housing: House Patient Tobacco Use Status: Never used Tobacco e-Cigarette/Vaping Use: Never Used Second Hand Smoke Exposure: No service: No Current occupational status: retired Current occupation: Self employed Cognitive needs: No Hearing needs: No Vision needs: No Review of Systems Const Denies chills, Denies fatigue, Denies fever(s), Denies frequent falls, Denies weakness, Denies weight gain and Denies weight loss ENT Denies dizziness Card Denies chest pain, Denies leg edema, Denies lightheadedness, Denies palpitations, Denies dyspnea, Denies dyspnea on exertion and Denies orthopnea Resp Denies cough, Denies dyspnea and Denies dyspnea on exertion GI Denies bloating and Denies change in bowel habits Musc Denies muscle weakness, Denies numbness and Denies tingling Neuro Denies dizziness, Denies frequent falls, Denies numbness, Denies tingling and Denies weakness Endo Denies fatigue and Denies palpitations Physical Exam Vital Signs: Last Vital Signs Pulse 82 12/31/24 13:15 BP 130/72 12/31/24 13:15 BMI result Body Mass Index 28.0 Const General: comfortable and no acute distress Orientation/consciousness: patient oriented x3 HEENT Other: Unremarkable Head: Yes normal to inspection Neck Neck: Yes normal visual inspection Chest Chest palpation & inspection: normal inspection of the chest Resp Auscultation: clear to auscultation bilaterally Cardio Palpation: normal PMI Heart sounds: S1 normal heart sound present, S2 normal heart sound present, no gallops, Murmur heart sound present systolic II/ and at the right sternal border and no rubs GI Palpation (GI): Soft to palpation Back/Spine/Pelvis Other: unremarkable Skin General skin exam: no rashes or lesions noted Neuro General: patient oriented x3 Extrem General: Yes normal to inspection Psych Mental Status: mental status grossly normal Office Procedures EKG Details: EKG with underlying sinus rhythm at 82/Min; no ischemic changes; [place]. [address]-Zdzjovpanossyytwe, Complete Assessment & Plan Assessment & Plan (1) Aortic valve calcification: Code(s): I35.9 - Nonrheumatic aortic valve disorder, unspecified Category: Medical Plan 1. Aortic Sclerosis with Heart Murmur The patient's echocardiogram reveals mild calcification of the aortic valve, which is an age-related finding and currently not of major concern. This mild restriction causes turbulence, resulting in a very subtle heart murmur audible on exam. The valve continues to open well, and the heart's electrical conduction is normal. It was explained that this is a very slow-moving process that may or may not become significant over many years. The remote history of rheumatic fever does not appear to have affected the patient's heart. No immediate intervention is needed. Plan is to monitor with a repeat echocardiogram in 3-4 years. 2. Coronary Artery Disease Screening The patient is asymptomatic, with no reports of chest pain (angina). The patient was educated on potential symptoms of coronary blockages, such as exertional chest pain or tightness, particularly in cold weather. An optional, wsa-gvoqgxnhy-ifqemfy CT scan of the heart to assess for a calcium score was discussed as a way to establish a baseline for plaque buildup. The patient has deferred this test for now but was advised it can be ordered at any time. The patient was instructed to monitor for symptoms. Discussion Notes I reviewed the echocardiogram findings with the patient, confirming the presence of mild, age-related calcification on the aortic valve. I reassured the patient that this is not a major issue and the valve function is currently fine. I explained that the subtle heart murmur heard on exam is a result of this mild calcification. I emphasized the very slow progression of this condition and recommended a follow-up echocardiogram in 3 to 4 years for monitoring. We discussed that the patient's mother's history of a pacemaker is related to an electrical issue and is different from the patient's valve condition. I also discussed coronary artery disease screening, outlining symptoms like angina, and presented the option of a cardiac CT for calcium scoring, noting it would likely be an xxf-zo-qadmqn expense as the patient is asymptomatic. The patient understood and chose to defer this test for now. I informed the patient that no immediate appointment is required and we will place a callback for 3 years. Patient was informed and verbally consented to the use of an ambient scribe for clinic note documentation during this visit. Patient Instructions: - Your recent heart ultrasound showed a very small amount of calcium on one of your heart valves, which is a common finding as we age and is not a cause for alarm. - The slight heart murmur that was heard is caused by this minor calcium. - No treatment is needed at this time. Plan to repeat the heart ultrasound in 3 to 4 years for monitoring. - You can continue your normal lifestyle and activities without any restrictions. - Please be aware of new symptoms such as chest pain or tightness, especially when walking uphill or in cold weather, and seek medical attention if they occur. - We discussed an optional CT scan to check for plaque in your heart arteries. You decided to wait on this test, but you can request it at any time. Coding Level of Care Code New Pt Level 3 (01205) Diagnoses Aortic valve calcification I35.9 CPT Codes EKG - CPT: 20963-Jhvvvnjfcywbzbhdr, Complete ([id number])
[2024-12-31 13:15] VITALS: BP 130/72; PULSE 82; BMI 28.0
--- OUTSIDE RECORDS SUMMARY | 2024-12-31 16:53 | XMS_ITS | Patient Health Record ---
[facility] Address [address] [place] [address] Care Team Providers Care Applications Coordinator Name Role Phone Lorie Augustin MD Primary Care Provider Unavailab frances Jennifer Morris Unavailable [phone] Allergies Allergen (clinical drug ingredient) Drug/Non Drug [...] Treatment Pending Test Test Name Order Date [id number] Destruction, -14 10/08/2010 [id number]-Soho Destruction, -14 12/11/2010 34232- Debride <25 sq cm 12/11/2010 67133- Debride <25 sq cm 10/08/2010 Insurance Providers Payer Name Payer Address Payer Phone Subscriber Number Group Number Insured Name Patient Relationship to Insured Coverage Start Date Coverage End Date [facility] All Others [address] [place] [address] [id number] Lorie Rawls Self - patient is the insured Medical (General) History Medical History History ICD Code transfusions scarlet fever rheumatoid arthritis Surgical History Surgery Date(Month/Year) hysterectomy 1998 foot surgery 2010
--- OUTSIDE RECORDS SUMMARY | 2024-12-31 16:54 | XMS_ITS | Clinical Summary ---
Author Organization [facility] Address [address] [facility] [address] [place] [address] Phone Care Team Providers Care Javascript Ui Developer Name Role Phone Jessica Moreno MD Unavailable [phone] Lily Zurita NP Primary Care Provider Allergies [...] unresolved will pursue w/u. Needs referral to bond manager. Mild intermittent asthma without complication Assessment & [...] COLONOSCOPY 2005 RSV VACCINE (1 - Risk 50-74 years 1-dose series) 2010 Adult Td,Tdap Booster 04/30/2020 04/30/2010, 008 DEPRESSION [...] (05/29/2020 11:10 AM EDT) HDL 66 mg/dL [facility] Comment: Interpretation <40 mg/dL: Low HDL cholesterol (major risk factor for CHD) Greater than or equal to 60 mg/dL: High HDL cholesterol ( negative risk factor for CHD) HDL - cholesterol is affected by a number of factors, e.g. smoking, excerise, hormones, sex and age. CHOLESTEROL 209 0 - 240 mg/dL [facility] TRIGLYCERIDES 97 30 - 160 mg/dL [facility] LDL 124 50 - 129 mg/dL [facility] Comment: LDL levels in terms of risk for coronary heart disease: <100 mg/dL: Optimal 100-129 mg/dL: Near or above optimal 130-159 mg/dL: Borderline high 160-189 mg/dL: High >190 mg/dL: Very High CARDIAC RISK RATIO 3.2(L) 3.3 - 4.4 [facility] Blood 05/29/2020 11:1 0 AM EDT 05/29/2020 11:13 AM EDT Alicia Reed CONSULTING SME LAB BLOOD BKR ORDERABL ES Final Result [address] [address] from Last 3 Months or Most Recently Relevant to Health Maintenance Insurance Care Teams Javascript Ui Developer Relationship Specialty Start Date End Date Lily Zurita NP [address] [place] [id number] PCP - General Nurse Practitioner 05/11/22 Jessica Moreno MD [address] [place] [address] Obstetrics 08/21/19 Additional Source Comments The information contained in this document represents components of the legal health record. It is not the complete legal health record.[facility]
== END 2024-12-31 13:34 | disposition home or self-care (01) ==
LOC: HO.HCS 13:08
PROVIDERS: PCP Family Medicine; Visit Provider Internal Medicine
DX: I35.9 Nonrheumatic aortic valve disorder, unspecified (principal)
CPT/HCPCS: 93010; 99203

== ENCOUNTER → 2024-12-31 13:07 | Outpatient (BNVA) | payer OTHER, SELFPAY | PROVIDERS: PCP Family Medicine; Visit Provider Internal Medicine | DX: I35.9 Nonrheumatic aortic valve disorder, unspecified (principal) | CPT/HCPCS: 93005; 99202 ==

== ENCOUNTER 2025-01-01 10:35 | Outpatient (REF) | payer OTHER, SELFPAY ==
--- NOTE | ~2025-01-01 | US_ITS ---
EXAMINATION: US ABDOMEN LIMITED WITH LIVER ELASTOGRAPHY HISTORY: R74.8 - ELEVATED LIVER ENZYMES TECHNIQUE: Real-time grayscale ultrasound imaging of the right upper quadrant was performed and images were reviewed. COMPARISON: There are no prior studies available for comparison. FINDINGS: Liver: The right lobe of the liver measures 13.0 cm in size. The left lobe of the liver measures 9.6 cm in size. The liver demonstrates increased echotexture, consistent with steatosis. There is a 3.9 x 2.3 x 3.6 cm hypoechoic area in the left lobe which likely represents focal fatty sparing. No definite mass or intrahepatic biliary ductal dilatation is identified. There is normal hepatopedal flow in the portal vein. Ultrasound elastography of the liver was performed with 10 separate measurements of the liver parenchyma with the patient in the supine position. Measurements were obtained approximately 2 cm below Kendrick's capsule and perpendicular to the capsule. The median shear wave velocity is 1.90 m/s. The interquartile range/median (IQR/median) is 0.08. Gallbladder and biliary tree: The gallbladder is unremarkable, without evidence of calculi, wall thickening, or pericholecystic fluid. There is no sonographic Sparks sign. The common bile duct is normal in caliber measuring 4 mm. Right Kidney: The right kidney measures 9.2 cm in length. The right kidney is unremarkable, without evidence of masses, hydronephrosis, or calculi. Pancreas: The pancreatic head, neck, and body are unremarkable. The pancreatic tail is obscured by bowel gas. Abdominal aorta and inferior vena cava: The visualized portions of the abdominal aorta and inferior vena cava are normal in caliber. There is no free fluid in the right upper quadrant. US/US abdomen dailey w elastography IMPRESSION: Hepatic steatosis and probable focal fatty sparing in the left lobe. The median shear wave velocity in the liver is 1.90 m/s, corresponding to a median liver stiffness of 11.10 kPa. The IQR/median value is 0.08. This is indicative of a quality data set. Findings are indicative of a high elastography value suggestive of compensated advanced chronic liver disease. REFERENCE: Society of Radiologists in Ultrasound Liver Stiffness Thresholds (2020): LIVER STIFFNESS THRESHOLDS: *Shear wave velocity less than 1.3 m/s (Liver Stiffness equal or less than 5 kPa): High probability of being normal. *Shear wave velocity less than 1.7 m/s (Liver Stiffness less than 9 kPa): In the absence of other known clinical signs, rules out compensated advanced chronic liver disease. *Shear wave velocity between 1.7-2.1 m/s (Liver Stiffness 9-13 kPa): Suggestive of compensated advanced chronic liver disease but need further test for confirmation. *Shear wave velocity between 2.1-2.4 m/s (Liver Stiffness 13-17 kPa): Rules in compensated advanced chronic liver disease. *Shear wave velocity greater than 2.4 m/s (Liver Stiffness over 17 kPa): Suggestive of clinically significant portal hypertension. QUALITY OF DATA SET: *IQR/Median value equal or less than 0.15 implies a quality data set. *IQR/Median value over 0.15 implies a poor quality data set. SIGNIFICANT CHANGE FROM PRIOR EXAM: Significant change if liver stiffness measurement is 10% or greater from prior exam. OTHER CONSIDERATIONS: The stage of liver fibrosis may be overestimated in the setting of acute hepatitis, liver inflammation, elevated liver function tests, hepatic vascular congestion, obstructive cholestasis, non-fasting state, and infiltrative diseases such as amyloidosis and lymphoma. In some patients with NAFLD, the liver stiffness thresholds for compensated advanced chronic liver disease may be lower. In causes other than viral hepatitis and NAFLD, liver stiffness thresholds are not well established. Electronically signed by: Salo Whitt MD 01/01/2025 12:22 PM [facility] [place]
--- OUTSIDE RECORDS SUMMARY | 2025-01-01 12:42 | XMS_ITS | Patient Health Record ---
Author [facility] Address [address] [place] [address] Care Team Providers Care Sole Cutter Name Role Phone Lorie Augustin MD Primary Care Provider Unavailab frances Jennifer Morris Unavailable [phone] Allergies Allergen (clinical drug ingredient) Drug/Non Drug [...] Treatment Pending Test Test Name Order Date [id number] Destruction, -14 10/08/2010 [id number]-Spyz Destruction, -14 12/11/2010 22747- Debride <25 sq cm 12/11/2010 28386- Debride <25 sq cm 10/08/2010 Insurance Providers Payer Name Payer Address Payer Phone Subscriber Number Group Number Insured Name Patient Relationship to Insured Coverage Start Date Coverage End Date [facility] All Others [address] [place] [address] [id number] Lorie Rawls Self - patient is the insured Medical (General) History Medical History History ICD Code transfusions scarlet fever rheumatoid arthritis Surgical History Surgery Date(Month/Year) hysterectomy 1998 foot surgery 2010
--- OUTSIDE RECORDS SUMMARY | 2025-01-01 12:42 | XMS_ITS | Clinical Summary ---
Author Organization [facility] Address [address] [facility] [address] [place] [address] Phone Care Team Providers Care Glue Drier Operator Name Role Phone Jessica Moreno MD Unavailable [phone] Lily Zurita NP Primary Care Provider Allergies [...] unresolved will pursue w/u. Needs referral to manufacturing engineer supervisor. Mild intermittent asthma without complication Assessment & [...] (05/29/2020 11:10 AM EDT) HDL 66 mg/dL [facility] Comment: Interpretation <40 mg/dL: Low HDL cholesterol (major risk factor for CHD) Greater than or equal to 60 mg/dL: High HDL cholesterol ( negative risk factor for CHD) HDL - cholesterol is affected by a number of factors, e.g. smoking, excerise, hormones, sex and age. CHOLESTEROL 209 0 - 240 mg/dL [facility] TRIGLYCERIDES 97 30 - 160 mg/dL [facility] LDL 124 50 - 129 mg/dL [facility] Comment: LDL levels in terms of risk for coronary heart disease: <100 mg/dL: Optimal 100-129 mg/dL: Near or above optimal 130-159 mg/dL: Borderline high 160-189 mg/dL: High >190 mg/dL: Very High CARDIAC RISK RATIO 3.2(L) 3.3 - 4.4 [facility] Blood 05/29/2020 11:1 0 AM EDT 05/29/2020 11:13 AM EDT Alicia Reed GRAIN FARMWORKER LAB BLOOD BKR ORDERABL ES Final Result [address] [address] from Last 3 Months or Most Recently Relevant to Health Maintenance Insurance Care Teams Glue Drier Operator Relationship Specialty Start Date End Date Lily Zurita NP [address] [place] [id number] PCP - General Nurse Practitioner 05/11/22 Jessica Moreno MD [address] [place] [id number] Obstetrics 08/21/19 Additional Source Comments The information contained in this document represents components of the legal health record. It is not the complete legal health record.[facility]
== END 2025-01-01 10:36 | disposition home or self-care (01) ==
LOC: HO.US 10:35
PROVIDERS: PCP Family Medicine; Visit Provider Family Medicine
DX: R74.8 Abnormal levels of other serum enzymes (principal)
CPT/HCPCS: 76705; 76981

== ENCOUNTER → 2025-01-01 10:37 | Outpatient (BNV) | payer OTHER, SELFPAY | PROVIDERS: PCP Family Medicine; Visit Provider Radiology Diagnostic Radiology | DX: K76.0 Fatty (change of) liver, not elsewhere classified (principal) | CPT/HCPCS: 76705 ==

== ENCOUNTER 2025-01-09 11:24 | Outpatient (AMB) | payer OTHER, SELFPAY ==
--- NOTE | 2025-01-09 11:34 | MHC.PC.OV ---
Vital Signs 01/09/25 11:37 Height 5 ft Weight 150 lb 2 oz BMI 29.3 BP 141/58 H Blood Pressure Location Lt brachial Position Sitting Respiration 16 Pulse 86 Pulse Source Pulse Oximeter Temp 98.1 F Temp Source Oral Pulse Oximetry (%) 97 Oxygen Delivery Method Room Air Intake Visit Reasons: f/u imaging, heart murmur Intake Note: patient here for follow up on imaging, heart murmur Trimming Machine Set Up Operator Required: No Is last menstrual period known: No Post menopausal: No Patient : No Allergies iodine Allergy (Severe, Verified 01/09/25 11:36) cardiac arrest Tobacco use date assessed: 01/09/25 Fall risk assessment: No Falls in past year Last assessed Fall Risk: 01/09/25 Dental Screening Dental Screen Date: 01/09/25 Did you have a dental visit in the last 12 months?: Yes Did you have a dental problem in the last 6 months where you did not have access to dental care?: No Was dental information given to patient?: Patient has dentist HPI f/u imaging, heart murmur HPI Details 64 y/o female presents to f.u imaging, heart murmur Liver elastography 01/01/25 shows hepatic steatosis and probable focal fatty sparing in the L lobe. She follows up with orthopedics for her R knee. . [facility] Medical History Sinusitis Bladder disease H/O nonmelanoma skin cancer Surgical History History of bladder surgery H/O: hysterectomy History of nasal surgery S/P AURA (total abdominal hysterectomy) History of bunionectomy Status post trigger finger release History of carpal tunnel release Family History Mother Pacemaker Social History Housing: House Patient Tobacco Use Status: Never used Tobacco e-Cigarette/Vaping Use: Never Used Second Hand Smoke Exposure: No service: No Current occupational status: retired Current occupation: Self employed Cognitive needs: No Hearing needs: No Vision needs: No Questionnaire Thrive Questionnaire Date Thrive assessed: 03/14/24 I am a: Patient What is your living situation today?: I have a steady place to live Within the past 12 months, did the food you bought not last and you didn't have the money to get more?: Never true Within the past 12 months, did you worry whether your food would run out before you got money to buy more?: Never true Do you have trouble paying for medicines?: No Do you have trouble getting transportation to medical appointments?: No Do you have trouble paying your heating and electricity bill?: No Do you have trouble taking care of your child, family member or friend?: No Do you have trouble with day-to-day activities such as bathing, preparing meals, shopping, managing finances, etc.?: No Are you currently unemployed and looking for a job?: No Are you interested in more education?: No Please select the resources that you would like help with: None Currently or been in a relationship where the following occur: No concerns reported THRIVE Score: 0 RAO-7 AMB Questionnaire RAO-7 Date RAO - 7 assessed: 07/26/24 Source: Developed by Drs. Salo Stratton, Marisa Lopez, Dami Jerry and colleagues, with an educational nickie from [employer]. Review of Systems Const Denies chills, Denies fatigue, Denies fever(s), Denies headache(s) and Denies weakness ENT Denies dizziness and Denies headache(s) Card Denies dyspnea Resp Denies cough, Denies dyspnea, Denies wheezing and Denies other (shortness of breath) Musc Denies numbness and Denies tingling Neuro Denies dizziness, Denies headache(s), Denies numbness, Denies tingling and Denies weakness Psych Denies anxiety and Denies depression Endo Denies fatigue Aller/Immun Denies wheezing Physical exam (Primary Care) Vital Signs: Last Vital Signs Temp 98.1 F 01/09/25 11:37 Pulse 86 01/09/25 11:37 Resp 16 01/09/25 11:37 BP 141/58 H 01/09/25 11:37 Pulse Ox 97 01/09/25 11:37 Oxygen Delivery Method Room Air 01/09/25 11:37 BMI result Body Mass Index 29.3 Tobacco/Smoking Status: Tobacco use Status Tobacco use date assessed 01/09/25 01/09/25 11:40 Patient Tobacco Use Status Never used Tobacco 01/09/25 11:40 e-Cigarette/Vaping Use Never Used 01/09/25 11:40 Thrive Assessment: Date of Thrive Assessment Date Thrive assessed 03/14/24 01/09/25 11:40 Currently or been in a relationship where the following occur: No concerns reported Const General: well developed; No acute distress Nutritional Appearance: well nourished Orientation/consciousness: patient oriented x3 HENMT Head: Yes normocephalic and Yes atraumatic Eyes General: appearance normal, both eyes and all related structures Pupils: Equal, round and reactive pupils present EOM: EOMs intact bilaterally Resp Effort & Inspection: normal respiratory effort Auscultation: clear to auscultation bilaterally Cardio Rate: regular rate Rhythm: regular rhythm Heart sounds: S1 normal heart sound present, S2 normal heart sound present, no gallops, Murmur heart sound present and no rubs Neuro General: patient oriented x3 and gait normal Cranial nerves: Yes Equal, round and reactive pupils present Psych Affect: normal affect Coding Level of Care Code Est Pt Level 4 (95915) Diagnoses Hepatic steatosis K76.0 Knee pain M25.569 Heart murmur R01.1 Assessment & Plan Assessment & Plan (1) Hepatic steatosis: Code(s): K76.0 - Fatty (change of) liver, not elsewhere classified Category: Medical Plan: Ultrasound of her liver shows hepatic steatosis with elevated elastography Work on good hydration and weight loss Referred her to Gastroenterology (2) Knee pain: Code(s): M25.569 - Pain in unspecified knee Category: Medical Plan: Right knee shows moderately severe osteoarthritis She has an upcoming appointment with her service specialist (3) Heart murmur: Code(s): R01.1 - Cardiac murmur, unspecified Category: Medical Plan: Echocardiogram showed: - There is trace mitral valve regurgitation. - There is trace tricuspid valve regurgitation. - mild calcification at aortic valve without aortic valve stenosis or regurgitation. Murmur likely related to above. Benign murmur Patient was seen by Cardiology who did not feel they were in concerns either. Did offer cardiac calcium scan. Patient will hold off on this. Orders: Referrals Gastroenterology Referral K76.0 - Fatty (change of) liver, not elsewhere classified Medications: Refilled alprazolam MassPat Verified. 0.25 - 0.5 mg (0.5 - 1 x 0.5 mg) PO DAILY PRN 30 tabs 0RF anxiety 30 days
[2025-01-09 11:37] VITALS: BP 141/58; PULSE 86; RESP 16; TEMP 36.7; O2SAT 97; BMI 29.3
== END 2025-01-09 12:35 | disposition home or self-care (01) ==
LOC: HO.HMCFM 11:25
PROVIDERS: PCP Family Medicine; Visit Provider Family Medicine
DX: K76.0 Fatty (change of) liver, not elsewhere classified (principal); M25.569 Pain in unspecified knee; R01.1 Cardiac murmur, unspecified

== ENCOUNTER → 2025-01-09 11:24 | Outpatient (BNVA) | payer OTHER, SELFPAY | PROVIDERS: PCP Family Medicine; Visit Provider Family Medicine | DX: S83.241A Other tear of medial meniscus, current injury, right knee, initial encounter (principal); M25.561 Pain in right knee; K76.0 Fatty (change of) liver, not elsewhere classified; R01.1 Cardiac murmur, unspecified | CPT/HCPCS: 20610; 99202; 99212; J1010; J2003 ==

== ENCOUNTER 2025-01-09 15:13 | Outpatient (AMB) | payer OTHER, SELFPAY ==
[2025-01-09 15:17] VITALS: BMI 29.3
--- NOTE | 2025-01-09 15:17 | MHC.OFFVIS ---
Vital Signs 01/09/25 15:17 Height 5 ft Weight 150 lb BMI 29.3 Intake Visit Reasons: Right knee pain and giving way Intake Note: Lorie 64 yr old female presents with complaints of progressively worsening right knee pain and giving way. The patient states that her pain and swelling have gotten worse over the last 6 months in spite of continued non operative treatments. She has tried Tylenol, Advil, icing and physical therapy exercises which gave her minimal relief. Most of the pain is along the medial aspect of her knee. She states that her right knee will give out several times per day. Allergies iodine Allergy (Severe, Verified 01/09/25 15:22) cardiac arrest Medication List - Last Reconciled 01/09/25 by Derrick Vu MD alprazolam 0.25 - 0.5 mg (0.5 - 1 x 0.5 mg) PO DAILY PRN 30 days atorvastatin 20 mg PO BEDTIME 90 days solifenacin 5 mg PO DAILY 30 days valacyclovir 500 mg PO DAILY venlafaxine ER 150 mg PO DAILY 90 days PFSH Medical History Sinusitis Bladder disease H/O nonmelanoma skin cancer Surgical History History of bladder surgery H/O: hysterectomy History of nasal surgery S/P AURA (total abdominal hysterectomy) History of bunionectomy Status post trigger finger release History of carpal tunnel release Family History Mother Pacemaker Social History (Updated 01/09/25 @ 15:23 by AYLA Taveras) Housing: House Patient Tobacco Use Status: Never used Tobacco e-Cigarette/Vaping Use: Never Used Second Hand Smoke Exposure: No service: No Current occupational status: retired Current occupation: Self employed/ [employer] Cognitive needs: No Hearing needs: No Vision needs: No Physical Exam Vital Signs: BMI result Body Mass Index 29.3 Extrem Other: Right knee examination shows a moderate effusion, mild crepitus with range of motion, tenderness along her medial joint line, positive Jessica's test, no instability Office Procedures AMB Joint Injection/Aspiration Joint Injection/Aspiration Primary Site: Right Knee Prep: site was prepped using aseptic technique Injected: 40 mg of, DepoMedrol, with 3 mL of and 1% plain Lidocaine Procedure: The patient tolerated the procedure well Coding 03363 - Large joint Procedure code (CPT) selection complete Results Reviewed Results Reviewed: X-rays of the patient's right knee show mild diffuse joint space narrowing, no acute bony abnormalities Assessment & Plan Assessment & Plan (1) Tear of medial meniscus of right knee: Code(s): S83.241A - Other tear of medial meniscus, current injury, right knee, initial encounter Category: Medical (2) Right knee pain: Code(s): M25.561 - Pain in right knee Category: Medical Plan Ms. Rawls presents with right knee pain and mechanical symptoms most likely due to a medial meniscus tear. The risks and benefits of a right knee cortisone injection were discussed at length with the patient. The patient wished to proceed. She tolerated the injection well. I will also send the patient for an MRI of her right knee for further evaluation. I will see her back once the MRI is completed to discuss the findings and treatment options. Feel free to call me at any time should questions regarding her orthopedic management arise. Thank you very much for asking me to see this very friendly patient. I spent 20 minutes in reviewing the patient's records and imaging studies, seeing the patient and documenting in the medical record. Orders: Orders MR knee RT wo con Today S83.241A - Other tear of medial meniscus, current injury, right knee, initial encounter AMB Joint Injection/Aspiration 01/09/25 M25.561 - Pain in right knee Coding Level of Care Code New Pt Level 3 (19776) Complex visit Add On G2211 Diagnoses Tear of medial meniscus of right knee S83.241A Right knee pain M25.561 CPT Codes Coding - Large joint: 26347 - Large joint ([id number])
--- OUTSIDE RECORDS SUMMARY | 2025-01-09 21:30 | XMS_ITS | Clinical Summary ---
Author Organization [facility] Address [address] [place] [address] Phone Care Team Providers Care Packager And Strapper Name Role Phone Jessica Moreno MD Unavailable [phone] Lily Zurita NP Primary Care Provider Allergies [...] unresolved will pursue w/u. Needs referral to telephone information supervisor. Mild intermittent asthma without complication Assessment [...] (05/29/2020 11:10 AM EDT) HDL 66 mg/dL [facility] Comment: Interpretation <40 mg/dL: Low HDL cholesterol (major risk factor for CHD) Greater than or equal to 60 mg/dL: High HDL cholesterol ( negative risk factor for CHD) HDL - cholesterol is affected by a number of factors, e.g. smoking, excerise, hormones, sex and age. CHOLESTEROL 209 0 - 240 mg/dL [facility] TRIGLYCERIDES 97 30 - 160 mg/dL [facility] LDL 124 50 - 129 mg/dL [facility] Comment: LDL levels in terms of risk for coronary heart disease: <100 mg/dL: Optimal 100-129 mg/dL: Near or above optimal 130-159 mg/dL: Borderline high 160-189 mg/dL: High >190 mg/dL: Very High CARDIAC RISK RATIO 3.2(L) 3.3 - 4.4 [facility] Blood 05/29/2020 11:1 0 AM EDT 05/29/2020 11:13 AM EDT Alicia Reed QUALITY IMPROVEMENT ENGINEER LAB BLOOD BKR ORDERABL ES Final Result [address] [id number] from Last 3 Months or Most Recently Relevant to Health Maintenance Insurance Care Teams Packager And Strapper Relationship Specialty Start Date End Date Lily Zurita NP [address] [place] [id number] PCP - General Nurse Practitioner 05/11/22 Jessica Moreno MD [address] [place] [id number] Obstetrics 08/21/19 Additional Source Comments The information contained in this document represents components of the legal health record. It is not the complete legal health record.[facility]
== END 2025-01-09 15:58 | disposition home or self-care (01) ==
LOC: HO.HOS 15:14
PROVIDERS: PCP Family Medicine; Visit Provider Orthopaedic Surgery
DX: S83.241A Other tear of medial meniscus, current injury, right knee, initial encounter (principal); M25.561 Pain in right knee
CPT/HCPCS: 20610; 99203